=== PATIENT | male | born 1940 | race Caucasian/White ===

== ENCOUNTER 2017-09-18 12:00 | Emergency (ER) | payer BC, MEDICARE ==
--- NOTE | 2017-09-18 13:02 | EDM.PDOC ---
ED HPI GENERAL MEDICAL PROBLEM - General Chief Complaint: Chest Pain Stated Complaint: chest pain Time Seen by Provider: 09/18/17 12:15 Source of Information: Reports: Patient History Limitations: Reports: No Limitations - History of Present Illness INITIAL COMMENTS - FREE TEXT/NARRATIVE: Awoke with chest pressure this morning. While on the treadmill at cardiac rehab the patient became short of breath and developed left arm pain, the chest pressure did not worsen. The arm pain and dyspnea resolved with rest. Chest pressure persists, he did not take his NTG. He did however take his Plavix this morning. The patient underwent PCI of the left circumflex artery with placement of bare metal stent on 07/16/[address] [facility]. He's had 6 coronary stents in total placed. Onset: Today, Sudden Onset Date: 09/18/17 Onset Time: 06:00 Location: Reports: Chest Quality: Reports: Pressure Severity: Moderate (4) Improves with: Reports: None Worsens with: Reports: None Associated Symptoms: Reports: Cough, Shortness of Breath - Related Data Allergies Allergy/AdvReac Type Severity Reaction Status Date / Time prednisone Allergy Respiratory Verified 09/18/17 12:55 Distress Home Meds: Home Meds Levothyroxine [Synthroid] 100 mcg PO DAILY 10/21/13 [History] Metoprolol Succinate [Toprol Xl] 50 mg PO BID 10/21/13 [History] Albuterol [Ventolin HFA] 2 puff INH Q6HR PRN 07/21/15 [History] Cholecalciferol (Vitamin D3) [Vitamin D3] 2,000 units PO BID 07/21/15 [History] Clopidogrel Bisulfate [Plavix] 75 mg PO DAILY 07/21/15 [History] Insulin Aspart [NovoLOG] 5 units SUBCUT TIDMEALS 07/21/15 [History] Insulin Glarg,Human.Rec.Analog [Lantus Solostar] 34 units SUBCUT BEDTIME [History] Warfarin [Coumadin] 5 mg PO TUTHSA 07/21/15 [History] Warfarin [Coumadin] 7.5 mg PO SUMOWEFR 07/21/15 [History] Midodrine 10 mg PO BIDPC #14 tablet 08/10/15 [Rx] Albuterol/Ipratropium [DuoNeb 3.0-0.5 MG/3 ML] 3 ml NEB Q4H PRN 09/18/17 [ History] Colchicine 0.6 mg PO ASDIRECTED PRN 09/18/17 [History] Fluticasone/Salmeterol [Advair 250-50] 1 puff INH BID 09/18/17 [History] Isosorbide Mononitrate [Imdur] 60 mg PO DAILY 09/18/17 [History] Magnesium Oxide 250 mg PO 09/18/17 [History] Nitroglycerin 0.4 mg SL ASDIRECTED PRN 09/18/17 [History] Torsemide 20 mg PO BID 09/18/17 [History] atorvaSTATin Calcium [Lipitor] 40 mg PO BEDTIME 09/18/17 [History] Past Medical History HEENT History: Reports: Cataract, Hard of Hearing, Other (See Below) Other HEENT History: 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 Cardiovascular History: Reports: Afib, Heart Failure, High Cholesterol, Hypertension, Stents Respiratory History: Reports: Asthma, COPD, Pneumonia, Recurrent, SOB Gastrointestinal History: Reports: Other (See Below) Other Gastrointestinal History: Constipation and diarrhea issues. Genitourinary History: Reports: Renal Disease, Retention, Urinary Musculoskeletal History: Reports: Other (See Below) Other Musculoskeletal History: Mild arthritis, especially to fingers. Neurological History: Reports: Other (See Below) Other Neuro History: Episode of major headache last Spring, involved medications and a biopsy. Psychiatric History: Reports: Anxiety Endocrine/Metabolic History: Reports: Diabetes, Type I, Hypothyroidism, Obesity/ BMI 30+ Hematologic History: Reports: Anticoagulation Therapy Oncologic (Cancer) History: Reports: Lung Dermatologic History: Reports: Other (See Below) Other Dermatologic History: Dry skin, easily bruised. - Infectious Disease History Infectious Disease History: Reports: None Other Infectious Disease History: MRSA at one time, ears ?? Uncertain of childhood illnesses. - Past Surgical History HEENT Surgical History: Reports: Cataract Surgery Cardiovascular Surgical History: Reports: Coronary Artery Stent Respiratory Surgical History: Reports: Other (See Below) Social & Family History - Family History HEENT: Reports: Hearing Impairment, Macular Degeneration : Reports: None Musculoskeletal: Reports: Arthritis, Back pain, Chronic Neurological: Reports: CVA Endocrine/Metabolic: Reports: Diabetes, Type I Dermatologic: Reports: None - Tobacco Use Smoking Status *Q: Former Smoker - Living Situation & Occupation Living situation: Reports: Occupation: Retired ED ROS GENERAL - Review of Systems Review Of Systems: See Below Constitutional: Reports: No Symptoms HEENT: Reports: No Symptoms Respiratory: Reports: Shortness of Breath (exertional), Cough (x2-3 days) Cardiovascular: Reports: Chest Pain (4/10 pressure) Endocrine: Reports: No Symptoms GI/Abdominal: Reports: No Symptoms : Reports: No Symptoms Musculoskeletal: Reports: Arm Pain (left, on treadmill at cardiac rehab) Skin: Reports: No Symptoms Neurological: Reports: No Symptoms Psychiatric: Reports: No Symptoms Hematologic/Lymphatic: Reports: No Symptoms Immunologic: Reports: No Symptoms ED EXAM, GENERAL - Physical Exam Exam: See Below Exam Limited By: No Limitations General Appearance: Alert, WD/WN, No Apparent Distress Ears: Normal External Exam Nose: Normal Inspection Throat/Mouth: No Airway Compromise Head: Atraumatic, Normocephalic Neck: Supple Respiratory/Chest: No Respiratory Distress, No Accessory Muscle Use, Rhonchi, Wheezing Cardiovascular: Regular Rate, Rhythm, No Murmur GI/Abdominal: No Distention Extremities: Normal Inspection, Normal Range of Motion, Other (1+ pitting pedal edema bilaterally) Neurological: Alert, Oriented, No Motor/Sensory Deficits Psychiatric: Normal Affect Skin Exam: Warm, Dry, Intact, Normal Color, No Rash EKG INTERPRETATION EKG Date: 09/18/17 Time: 13:48 Rhythm: A-Fib Rate (Beats/Min): 60 Comparison: No Change (from 07/17/17) EKG Interpretation Comments: RBBB and LAFB, no acute ischemic abnormalities Course - Vital Signs Last Recorded V/S: Last Vital Signs Temp 37.3 C 09/18/17 12:00 Pulse Resp 17 09/18/17 12:30 BP 120/59 L 09/18/17 13:22 Pulse Ox 98 09/18/17 12:30 - Orders/Labs/Meds Orders: Active Orders 24 hr Category Date Time Status Chest 1V Frontal [CR] Stat Exams 09/18/17 12:37 Taken CULTURE BLOOD [BC] Stat Lab 09/18/17 13:33 Ordered CULTURE BLOOD [BC] Stat Lab 09/18/17 13:33 Ordered Nitroglycerin [Nitrostat] Med 09/18/17 13:00 Active 0.4 mg SL Q5M PRN Sodium Chloride 0.9% [Saline Flush] Med 09/18/17 12:37 Active 10 ml FLUSH ASDIRECTED PRN Blood Culture x2 Reflex Set [OM.PC] Urgent Oth 09/18/17 13:33 Ordered Saline Lock Insert [OM.PC] Routine Oth 09/18/17 12:37 Ordered EKG 12 Lead [EK] Stat Ther 09/18/17 12:37 Ordered Medication Orders Nitroglycerin (Nitrostat) 0.4 mg SL Q5M PRN PRN Reason: Chest Pain Last Admin: 09/18/17 13:22 Dose: 0.4 mg Admin: 09/18/17 13:14 Dose: 0.4 mg Sodium Chloride (Saline Flush) 10 ml FLUSH ASDIRECTED PRN PRN Reason: Keep Vein Open Last Admin: 09/18/17 13:20 Dose: 10 ml Labs: Laboratory Tests 09/18/17 09/18/17 09/18/17 Range/Units 12:40 12:40 12:40 WBC 7.3 (4.5-12.0) X10-3/uL RBC 4.01 L (4.30-5.75) x10(6)uL Hgb 12.5 (11.5-15.5) g/dL Hct 37.9 (30.0-51.3) % MCV 94.5 (80-96) fL MCH 31.3 (27.7-33.6) pg MCHC 33.1 (32.2-35.4) g/dL RDW 14.5 (11.5-15.5) % Plt Count 186 (125-369) X10(3)uL MPV 7.7 (7.4-10.4) fL Neut % (Auto) 70.2 (46-82) % Lymph % (Auto) 18.5 (13-37) % [place] % (Auto) 8.8 (4-12) % Eos % (Auto) 2 (1.0-5.0) % Baso % (Auto) 0 (0-2) % Neut # (Auto) 5.2 (1.6-8.3) # Lymph # (Auto) 1.3 (0.6-5.0) # [place] # (Auto) 0.6 (0.0-1.3) # Eos # (Auto) 0.2 (0.0-0.8) # Baso # (Auto) 0.0 (0.0-0.2) # PT 24.2 H (8.7-11.1) INR 2.51 H (0.89-1.13) APTT 32.8 (24.4-33.2) SECONDS Sodium 139 (135-145) mmol/L Potassium 3.8 (3.5-5.3) mmol/L Chloride 101 (100-110) mmol/L Carbon Dioxide 31 (21-32) mmol/L BUN 44 H (7-18) mg/dL Creatinine 2.2 H* (0.70-1.30) mg/dL Est Cr Clr Drug Dosing TNP Estimated GFR (MDRD) 29 L (>60) BUN/Creatinine Ratio 20.0 (9-20) Glucose 109 (80-116) mg/dL Calcium 9.1 (8.6-10.2) mg/dL Total Bilirubin 1.2 (0.1-1.3) mg/dL AST 25 (5-25) IU/L ALT 21 (12-36) U/L Alkaline Phosphatase 144 H (56-112) IU/L Troponin I (<0.017-0.056) ng/mL NT-Pro-B Natriuret Pep (<=450) pg/mL Total Protein 7.5 (6.0-8.0) g/dL Albumin 3.0 L (3.2-4.6) g/dL Globulin 4.5 g/dL Albumin/Globulin Ratio 0.7 09/18/17 09/18/17 Range/Units 12:40 12:40 WBC (4.5-12.0) X10-3/uL RBC (4.30-5.75) x10(6)uL Hgb (11.5-15.5) g/dL Hct (30.0-51.3) % MCV (80-96) fL MCH (27.7-33.6) pg MCHC (32.2-35.4) g/dL RDW (11.5-15.5) % Plt Count (125-369) X10(3)uL MPV (7.4-10.4) fL Neut % (Auto) (46-82) % Lymph % (Auto) (13-37) % [place] % (Auto) (4-12) % Eos % (Auto) (1.0-5.0) % Baso % (Auto) (0-2) % Neut # (Auto) (1.6-8.3) # Lymph # (Auto) (0.6-5.0) # [place] # (Auto) (0.0-1.3) # Eos # (Auto) (0.0-0.8) # Baso # (Auto) (0.0-0.2) # PT (8.7-11.1) INR (0.89-1.13) APTT (24.4-33.2) SECONDS Sodium (135-145) mmol/L Potassium (3.5-5.3) mmol/L Chloride (100-110) mmol/L Carbon Dioxide (21-32) mmol/L BUN (7-18) mg/dL Creatinine (0.70-1.30) mg/dL Est Cr Clr Drug Dosing Estimated GFR (MDRD) (>60) BUN/Creatinine Ratio (9-20) Glucose (80-116) mg/dL Calcium (8.6-10.2) mg/dL Total Bilirubin (0.1-1.3) mg/dL AST (5-25) IU/L ALT (12-36) U/L Alkaline Phosphatase (56-112) IU/L Troponin I 0.046 (<0.017-0.056) ng/mL NT-Pro-B Natriuret Pep 2538 H* (<=450) pg/mL Total Protein (6.0-8.0) g/dL Albumin (3.2-4.6) g/dL Globulin g/dL Albumin/Globulin Ratio Meds: Medications Generic Name Dose Route Start Last Admin Trade Name Freq PRN Reason Stop Dose Admin Nitroglycerin 0.4 mg 09/18/17 13:00 09/18/17 13:22 Nitrostat SL 0.4 mg Q5M PRN Administration Chest Pain Sodium Chloride 10 ml 09/18/17 12:37 09/18/17 13:20 Saline Flush FLUSH 10 ml ASDIRECTED PRN Administration Keep Vein Open Discontinued Medications Generic Name Dose Route Start Last Admin Trade Name Freq PRN Reason Stop Dose Admin Ceftriaxone Sodium 1,000 mg 09/18/17 13:44 Rocephin IVPUSH 09/18/17 13:45 ONETIME ONE Furosemide 40 mg 09/18/17 13:06 09/18/17 13:17 Lasix IVPUSH 09/18/17 13:07 40 mg NOW ONE Administration Morphine Sulfate 2 mg 09/18/17 13:43 Morphine IVPUSH 09/18/17 13:44 ONETIME ONE - Radiology Interpretation Free Text/Narrative:: CXR: Cardiomegaly. Increased pumonary vasculature. DANIEL opacity, etiologies include Atelectasis, focal edema and infiltrate. - Re-Assessments/Exams Free Text/Narrative Re-Assessment/Exam: 09/18/17 13:51 Symptoms unchanged after NTG SL x 2 09/18/17 13:53 Dr. Gramajo accepts transfer to [facility] Departure - Departure Time of Disposition: 13:52 Disposition: DC/Tfer to [facility] 02 Reason for Transfer *Q: Other (Cardiology consult) Condition: Fair Clinical Impression: Unstable angina CHF exacerbation Qualifiers: Heart failure type: unspecified Qualified Code(s): I50.9 - Heart failure, unspecified Referrals: Ranjith Llanes MD [Primary Care Provider] - Forms: ED Department Discharge Additional Instructions: Transferred to [facility], Dr. Gramajo accepting. - My Orders Last 24 Hours: My Active Orders 09/18/17 12:37 Chest 1V Frontal [CR] Stat Sodium Chloride 0.9% [Saline Flush] 10 ml FLUSH ASDIRECTED PRN Saline Lock Insert [OM.PC] Routine EKG 12 Lead [EK] Stat 09/18/17 13:00 Nitroglycerin [Nitrostat] 0.4 mg SL Q5M PRN 09/18/17 13:33 CULTURE BLOOD [BC] Stat CULTURE BLOOD [BC] Stat Blood Culture x2 Reflex Set [OM.PC] Urgent - Assessment/Plan Last 24 Hours: My Active Orders 09/18/17 12:37 Chest 1V Frontal [CR] Stat Sodium Chloride 0.9% [Saline Flush] 10 ml FLUSH ASDIRECTED PRN Saline Lock Insert [OM.PC] Routine EKG 12 Lead [EK] Stat 09/18/17 13:00 Nitroglycerin [Nitrostat] 0.4 mg SL Q5M PRN 09/18/17 13:33 CULTURE BLOOD [BC] Stat CULTURE BLOOD [BC] Stat Blood Culture x2 Reflex Set [OM.PC] Urgent
[2017-09-18] MEDS ORDERED: Furosemide 40 MG/4 ML VIAL IVPUSH ONE (13:06)
[2017-09-18] MEDS: Nitroglycerin 0.4 MG Tab.SL SL PRN ×2 (13:14→13:22)
[2017-09-18] MEDS: Sodium Chloride 0.9% 10 ML Syringe FLUSH PRN ×2 (13:20→14:04)
[2017-09-18] MEDS ORDERED: Morphine 2 MG/ML Syringe IVPUSH ONE (13:43)
[2017-09-18] MEDS ORDERED: cefTRIAXone 1,000 MG VIAL IVPUSH ONE (13:44)
[2017-09-18 21:40] VITALS: BP 132/62
--- NOTE | 2017-09-19 08:43 | CR ---
INDICATION: Chest pain. CHEST: Portable AP upright view of the chest 09/18/2017 was compared with 07/28 and 10/21/2013. Two images were obtained. There is increased density in the suprahilar area on the left. Upper lung field pulmonary vasculature appears slightly prominent and indistinct, suggesting CHF. The heart appears prominent but not grossly enlarged. Other than CHF, there could be fluid overload to produce pulmonary vascular congestion - correlate clinically. Cannot exclude a pleural effusion at the left lung base - costophrenic angle appears to be blunted. Overlying EKG leads are noted. IMPRESSION: 1. Atelectasis versus fibrosis versus pneumonia left suprahilar area and possibly extending into the lung base, possibly with pleuritis. 2. Possible CHF or other cause of pulmonary vascular congestion. MTDD
== END 2017-09-18 14:43 ==
LOC: FB.ED 12:00
DX: I20.0 Unstable angina (principal); I11.0 Hypertensive heart disease with heart failure; I50.9 Heart failure, unspecified; E10.9 Type 1 diabetes mellitus without complications; Z88.8 Allergy status to other drugs, medicaments and biological substances; Z79.899 Other long term (current) drug therapy; Z87.891 Personal history of nicotine dependence
CPT/HCPCS: 36415; 71045; 80053; 83880; 84484; 85025; 85610; 85730; 87040; 93005; 96374; 96375; 99284; 99285; A9270-GY; J0696; J1940; J2270; J7050

== ENCOUNTER 2018-08-28 11:52 | Inpatient (IN) | payer BC, MEDICARE ==
[2018-08-28] MEDS ORDERED: Albuterol 8 GM Inhaler INH PRN (15:46)
[2018-08-28] MEDS ORDERED: Colchicine 0.6 MG Tab PO PRN (15:46)
[2018-08-28] MEDS ORDERED: oxyCODONE 5 MG Tab PO PRN (15:46)
[2018-08-28] MEDS: Levofloxacin 250 MG Tab PO SCH (17:38)
[2018-08-28] MEDS: Warfarin 5 MG Tab PO SCH (17:38)
--- NOTE | 2018-08-28 18:01 | PCM.HP ---
H&P History of Present Illness - General Date of Service: 08/28/18 Admit Problem/Dx: Admission Diagnosis/Problem Admission Diagnosis/Problem Rehabilitation therapy Source of Information: Patient, Old Records History Limitations: Reports: No Limitations - History of Present Illness Initial Comments - Free Text/Narative: This is an 78-year-old male patient with history of lung CA and chronic pleural effusions was discharged from [facility] for rehabilitation. He was in the hospital for shortness of breath and had a thoracentesis and removed 1200 mils of fluid on 08/20/18. He was anemic and was given units of RBCs. Patient was transferred here for PT/OT and strengthening. Patient states he has some burning in his feet and is now on gabapentin and increase the dose and is feeling better. He denies shortness of breath, chest pain, weakness, fevers, chills. He wears oxygen chronically. - Related Data Allergies/Adverse Reactions: Allergies Allergy/AdvReac Type Severity Reaction Status Date / Time prednisone Allergy Respiratory Verified 09/18/17 12:55 Distress Home Medications: Home Meds Levothyroxine [Synthroid] 100 mcg PO DAILY 10/21/13 [History] Albuterol [Ventolin HFA] 2 puff INH Q6H PRN 07/21/15 [History] Insulin Aspart [NovoLOG] 5 units SUBCUT TIDMEALS 07/21/15 [History] Warfarin [Coumadin] 5 mg PO SUTUTHSA 07/21/15 [History] Warfarin [Coumadin] 7.5 mg PO MOWEFR 07/21/15 [History] Albuterol/Ipratropium [DuoNeb 3.0-0.5 MG/3 ML] 3 ml NEB Q4H PRN 09/18/17 [ History] Colchicine 0.6 mg PO ASDIRECTED PRN 09/18/17 [History] Fluticasone/Salmeterol [Advair 250-50] 1 puff INH BID 09/18/17 [History] Isosorbide Mononitrate [Imdur] 60 mg PO DAILY 09/18/17 [History] Torsemide 60 mg PO BID 09/18/17 [History] atorvaSTATin Calcium [Lipitor] 40 mg PO DAILY 09/18/17 [History] Aspirin [Ecotrin EC] 81 mg PO DAILY 08/28/18 [History] Cyanocobalamin (Vitamin B-12) [B-12] 1,000 mcg PO DAILY 08/28/18 [History] Folic Acid 1 mg PO DAILY 08/28/18 [History] Gabapentin [Neurontin] 300 mg PO BID 08/28/18 [History] Insulin Detemir [Levemir] 34 unit SUBCUT DAILY 08/28/18 [History] Mirtazapine 7.5 mg PO BEDTIME 08/28/18 [History] Polyethylene Glycol 3350 [MiraLAX] 17 gm PO DAILY 08/28/18 [History] levoFLOXacin [Levaquin] 250 mg PO DAILY 08/28/18 [History] oxyCODONE 5 mg PO Q4H PRN 08/28/18 [History] Past Medical History HEENT History: Reports: Cataract, Hard of Hearing, Other (See Below) Other HEENT History: 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 Cardiovascular History: Reports: Afib, Heart Failure, High Cholesterol, Hypertension, Stents Respiratory History: Reports: Asthma, COPD, Pneumonia, Recurrent, SOB Other Respiratory History: pleural effusion, hx of lung CA 2003 Gastrointestinal History: Reports: Other (See Below) Other Gastrointestinal History: Constipation and diarrhea issues. Genitourinary History: Reports: Renal Disease, Retention, Urinary Other Genitourinary History: hematuria, hyperuricemia, CKD Musculoskeletal History: Reports: Other (See Below) Other Musculoskeletal History: Mild arthritis, especially to fingers. Neurological History: Reports: Other (See Below) Other Neuro History: Episode of major headache last Spring, involved medications and a biopsy. Psychiatric History: Reports: Anxiety Endocrine/Metabolic History: Reports: Diabetes, Type I, Hypothyroidism, Obesity/ BMI 30+ Hematologic History: Reports: Anticoagulation Therapy Other Hematologic History: coagulopathy Oncologic (Cancer) History: Reports: Lung Dermatologic History: Reports: Other (See Below) Other Dermatologic History: Dry skin, easily bruised. - Infectious Disease History Infectious Disease History: Reports: None Other Infectious Disease History: MRSA at one time, ears ?? Uncertain of childhood illnesses. - Past Surgical History HEENT Surgical History: Reports: Cataract Surgery Cardiovascular Surgical History: Reports: Coronary Artery Stent Respiratory Surgical History: Reports: Other (See Below) Social & Family History - Family History HEENT: Reports: Hearing Impairment, Macular Degeneration : Reports: None Musculoskeletal: Reports: Arthritis, Back pain, Chronic Neurological: Reports: CVA Endocrine/Metabolic: Reports: Diabetes, Type I Dermatologic: Reports: None - Tobacco Use Smoking Status *Q: Former Smoker Used Tobacco, but Quit: No - Caffeine Use Caffeine Use: Reports: Soda - Recreational Drug Use Recreational Drug Use: No - Living Situation & Occupation Living situation: Reports: Occupation: Retired H&P Review of Systems - Review of Systems: Review Of Systems: See Below General: Reports: No Symptoms HEENT: Reports: No Symptoms Pulmonary: Reports: No Symptoms Cardiovascular: Reports: No Symptoms Gastrointestinal: Reports: No Symptoms Genitourinary: Reports: No Symptoms Musculoskeletal: Reports: No Symptoms Skin: Reports: No Symptoms Psychiatric: Reports: No Symptoms Neurological: Reports: Paresthesia, Change in Speech Immunologic: Reports: No Symptoms Exam - Exam Exam: See Below - Vital Signs Vital Signs: Last Vital Signs Temp 98.4 F 08/28/18 15:25 Pulse 78 08/28/18 15:25 Resp 18 08/28/18 15:25 BP 108/56 L 08/28/18 15:25 Pulse Ox 99 08/28/18 15:25 - Exam Quality Assessment: Supplemental Oxygen General: Alert, Oriented, Cooperative HEENT: Hearing Intact, Posterior Pharynx Clear, TMs Clear Neck: Supple, Trachea Midline Lungs: Crackles (Bilateral basilar) Cardiovascular: Regular Rate, Regular Rhythm. No: Systolic Murmur GI/Abdominal Exam: Normal Bowel Sounds, Soft, Non-Tender, No Distention Back Exam: Normal Inspection Extremities: Pedal Edema (1+ bilateral ankles) Skin: Warm, Dry, Intact Neurological: Normal Speech, Normal Tone Neuro Extensive - Mental Status: Alert, Oriented x3, Normal Mood/Affect, Normal Cognition, Memory Intact Psychiatric: Alert, Normal Affect, Normal Mood - Patient Data Lab Results Last 24 hrs: Laboratory Results - last 24 hr 08/28/18 08/28/18 Range/Units 16:25 17:35 PT 19.3 H (8.7-11.1) INR 2.00 H (0.89-1.13) POC Glucose 149 H (80-116) mg/dL - Problem List (1) Lung calculus SNOMED Code(s): 14248898 ICD Code: J98.4 - OTHER DISORDERS OF LUNG Status: Acute Current Visit: Yes (2) Pleural effusion SNOMED Code(s): 30656775 ICD Code: J90 - PLEURAL EFFUSION, NOT ELSEWHERE CLASSIFIED Status: Acute Current Visit: Yes (3) Anemia SNOMED Code(s): 150312594 ICD Code: D64.9 - ANEMIA, UNSPECIFIED Status: Acute Current Visit: Yes (4) Diabetes mellitus SNOMED Code(s): 11080620 ICD Code: E11.9 - TYPE 2 DIABETES MELLITUS WITHOUT COMPLICATIONS Status: Acute Current Visit: No Problem List Initiated/Reviewed/Updated: Yes Orders Last 24hrs: Active Orders 24 hr Category Date Time Status Admission Status [Patient Status] [ADT] Routine ADT 08/28/18 13:40 Active Patient Status [ADT] Routine ADT 08/28/18 15:43 Active Accu Check [Blood Glucose Check, Bedside] [RC] BIDAC Care 08/28/18 15:48 Active Oxygen Therapy [RC] PRN Care 08/28/18 15:43 Active Up With Assistance [RC] ASDIRECTED Care 08/28/18 15:43 Active VTE/DVT Education [RC] Per Unit Routine Care 08/28/18 15:43 Active Vital Signs [RC] 00,04,08,12,16,20 Care 08/28/18 15:43 Active Consult to Program Project Analyst [CONS] Routine Cons 08/28/18 16:55 Active OT Evaluation and Treatment [CONS] Routine Cons 08/28/18 15:43 Active PT Evaluation and Treatment [CONS] Routine Cons 08/28/18 15:43 Active Cardiac Diet [Heart Healthy Diet] [DIET] Diet 08/28/18 Dinner Active Fluid Restriction [DIET] Diet 08/28/18 Dinner Active INR,PT,PROTHROMBIN TIME [COAG] DAILY Lab 08/29/18 16:00 Ordered INR,PT,PROTHROMBIN TIME [COAG] DAILY Lab 08/30/18 16:00 Ordered INR,PT,PROTHROMBIN TIME [COAG] DAILY Lab 08/31/18 16:00 Ordered INR,PT,PROTHROMBIN TIME [COAG] DAILY Lab 09/01/18 16:00 Ordered INR,PT,PROTHROMBIN TIME [COAG] DAILY Lab 09/02/18 16:00 Ordered Albuterol [Ventolin HFA] Med 08/28/18 15:46 Active 0 gm INH Q6H PRN Albuterol/Ipratropium [DuoNeb 3.0-0.5 MG/3 ML] Med 08/28/18 15:46 Active 3 ml NEB Q4H PRN Aspirin [Halfprin] Med 08/29/18 09:00 Active 81 mg PO DAILY Colchicine [Colcrys] Med 08/28/18 15:46 Active 0.6 mg PO ASDIRECTED PRN Cyanocobalamin (Vitamin B12) [Vitamin B12] Med 08/29/18 09:00 Active 1,000 mcg PO DAILY Folic Acid Med 08/29/18 09:00 Active 1 mg PO DAILY Gabapentin [Neurontin] Med 08/28/18 21:00 Active 300 mg PO BID Insulin Glarg,Human.Rec.Analog [LantUS Solostar] Med 08/29/18 09:00 Active 34 units SUBCUT DAILY Insulin Lispro [HumaLOG] Med 08/28/18 18:00 Active 5 unit SUBCUT TIDMEALS Isosorbide Mononitrate [Imdur] Med 08/29/18 09:00 Active 60 mg PO DAILY Levothyroxine [Synthroid] Med 08/29/18 06:00 Active 100 mcg PO 0600 Mirtazapine [Remeron] Med 08/28/18 21:00 Active 7.5 mg PO BEDTIME Mometasone/Formoterol [Dulera 200-5 MCG] Med 08/28/18 21:00 Active 0 puff IH BID Polyethylene Glycol 3350 [MiraLAX] Med 08/29/18 09:00 Active 17 gm PO DAILY Torsemide [Demadex] Med 08/28/18 21:00 Active 60 mg PO BID Warfarin [Coumadin] Med 08/28/18 16:00 Active 5 mg PO SUTUTHSA Warfarin [Coumadin] Med 08/29/18 16:00 Active 7.5 mg PO MOWEFR atorvaSTATin [Lipitor] Med 08/29/18 09:00 Active 40 mg PO DAILY levoFLOXacin [Levaquin] Med 08/28/18 16:00 Active 250 mg PO Q24H oxyCODONE Med 08/28/18 15:46 Active 5 mg PO Q4H PRN Resuscitation Status Routine Resus Stat 08/28/18 15:43 Ordered Medication Orders Albuterol (Ventolin Hfa) 0 gm INH Q6H PRN PRN Reason: Dyspnea Albuterol/Ipratropium (Duoneb 3.0-0.5 Mg/3 Ml) 3 ml NEB Q4H PRN PRN Reason: Dyspnea Aspirin (Halfprin) 81 mg PO DAILY [facility] Atorvastatin Calcium (Lipitor) 40 mg PO DAILY [facility] Colchicine (Colcrys) 0.6 mg PO ASDIRECTED PRN PRN Reason: ACUTE GOUT Cyanocobalamin (Vitamin B12) 1,000 mcg PO DAILY [facility] Folic Acid (Folic Acid) 1 mg PO DAILY [facility] Gabapentin (Neurontin) 300 mg PO BID [facility] Insulin Glargine (Lantus Solostar) 34 units SUBCUT DAILY [facility] Insulin Human Lispro (Humalog) 5 unit SUBCUT TIDMEALS [facility] Isosorbide Mononitrate (Imdur) 60 mg PO DAILY [facility] Levofloxacin (Levaquin) 250 mg PO Q24H [facility] Last Admin: 08/28/18 17:38 Dose: 250 mg Levothyroxine Sodium (Synthroid) 100 mcg PO 0600 [facility] Mirtazapine (Remeron) 7.5 mg PO BEDTIME [facility] Mometasone Furoate/Formoterol Fumar (Dulera 200-5 Mcg) 0 puff IH BID [facility] Oxycodone HCl (Oxycodone) 5 mg PO Q4H PRN PRN Reason: ACUTE PAIN Polyethylene Glycol (Miralax) 17 gm PO DAILY [facility] Torsemide (Demadex) 60 mg PO BID [facility] Warfarin Sodium (Coumadin) 5 mg PO SUTUTHSA [facility] Last Admin: 08/28/18 17:38 Dose: 5 mg Warfarin Sodium (Coumadin) 7.5 mg PO MOWEFR [facility] Assessment/Plan Comment:: 1. Admit to swing bed 2. Diet per [facility] is 1500 mL fluid restriction and a cardiac diet. 3. PT/OT 4. Up with assist 5. Continue the same medications he was on in [place]. 6. DNR/DNI 7. The plan at this time is to go home after swing bed
[2018-08-28] MEDS: Insulin Lispro 100 Unit/ML 3 ML KwikPen SUBCUT SCH (18:40)
[2018-08-28] MEDS: Formoterol/Mometasone 200-5 MCG 8.8 GM Inhaler IH SCH (20:48)
[2018-08-28] MEDS: Torsemide 20 MG Tab PO SCH (20:49)
[2018-08-28] MEDS: Mirtazapine 15 MG Tab PO SCH (20:49)
[2018-08-28] MEDS: Gabapentin 300 MG Cap PO SCH (20:55)
[2018-08-29] MEDS: Levothyroxine 100 MCG Tab PO SCH (05:19)
[2018-08-29] MEDS: atorvaSTATin 40 MG Tab PO SCH (08:17)
[2018-08-29] MEDS: Aspirin 81 MG Tab.EC PO SCH (08:17)
[2018-08-29] MEDS: Cyanocobalamin (Vitamin B12) 1,000 MCG Tab PO SCH (08:17)
[2018-08-29] MEDS: Torsemide 20 MG Tab PO SCH ×2 (08:17→21:29)
[2018-08-29] MEDS: Folic Acid 1 MG Tab PO SCH (08:17)
[2018-08-29] MEDS: Polyethylene Glycol 3350 Powder 17 GM Packet PO SCH (08:17)
[2018-08-29] MEDS: Isosorbide Mononitrate 60 MG Tab.ER PO SCH (08:17)
[2018-08-29] MEDS: Insulin Glargine,Human Rec. Analog 100 Units/ML 3 ML Pen SUBCUT SCH (08:18)
[2018-08-29] MEDS: Formoterol/Mometasone 200-5 MCG 8.8 GM Inhaler IH SCH ×2 (08:18→21:29)
[2018-08-29] MEDS: Insulin Lispro 100 Unit/ML 3 ML KwikPen SUBCUT SCH ×3 (08:18→17:15)
[2018-08-29] MEDS: Gabapentin 300 MG Cap PO SCH ×2 (08:24→21:28)
[2018-08-29] MEDS ORDERED: Warfarin Sliding Scale PO SCH (10:15)
--- NOTE | 2018-08-29 13:00 | PN ---
DATE SEEN: 08/29/2018 SUBJECTIVE: Ethan Bright is an 78-year-old male, seen today for review. History of lung cancer. He has had recurrent left pleural effusions. Most recent thoracentesis on 08/20/2018 of 1200 mL. Also has a history of anemia, recent blood provided. INR 2.18, Coumadin proceeded. The pain in his feet is better, moderate increase in dose of gabapentin. PHYSICAL EXAMINATION: VITAL SIGNS: 36.7, 74, 122/70, 18 is the respiration, and 95% on 2 L. GENERAL: In good spirits. Cooperative, gives a good history. HEENT: Mouth and oropharynx are clear. NECK: Benign. Thyroid small. CHEST: Clear in all lung whitting[place]. No adventitious sounds. HEART: Occasional ectopy. Soft murmur. ASSESSMENT: 1. Lung cancer. 2. History of recurrent pleural effusions. PLAN: We will obtain a chest x-ray, hemoglobin, and appropriate diagnostic studies. Short-term stay expected. /[id number] VISHAL/CHRISTOPHER
--- NOTE | 2018-08-29 14:30 | CR ---
INDICATION: Followup lung effusion and previous thoracentesis. CHEST TWO VIEWS: PA and lateral views of the chest 08/29/18 were compared with 08/26/18 and 08/22/18 as well as 09/18/17. The most recent study is apparently post-thoracentesis on the left. There has been re-accumulation of fluid at the left lower lung field with a small to moderate sized pleural effusion now suggested- re-accumulating compared with the previous study. There also is nodular and linear density in the left upper lobe posterior basilar segment in the mid lung, which has been present previously and may be due to neoplastic process and possibly fibrosis. The heart did not appear grossly enlarged. However, pulmonary vasculature appears somewhat prominent and indistinct raising question of a mild or early CHF. This should be correlated clinically. The possibility of pneumonia and pleuritis at the left lung base cannot be excluded with heavy markings in that area and pleural effusion. Atelectasis could also be present with these findings. The right lung and pleural space appeared relatively normal. The aorta is tortuous and calcified in the arch and descending portion. Bony structures appear to be grossly intact. IMPRESSION: 1. Re-accumulation of fluid on the left with possibility of pneumonia and pleuritis unable to be excluded. 2. Mid-lung field density posteriorly, which may be on the basis of neoplasia, fibrosis and/or atelectasis. Loculated pleural fluid could also be present as well as abscess formation. 3. Cannot exclude pulmonary vascular congestion although the heart is not enlarged to strongly suggest CHF. MTDD
[2018-08-29] MEDS: Warfarin 2.5 MG Tab PO SCH (16:23)
[2018-08-29] MEDS: Levofloxacin 250 MG Tab PO SCH (16:23)
[2018-08-29] MEDS: Mirtazapine 15 MG Tab PO SCH (21:29)
[2018-08-30] MEDS: Levothyroxine 100 MCG Tab PO SCH (06:21)
[2018-08-30] MEDS: Insulin Lispro 100 Unit/ML 3 ML KwikPen SUBCUT SCH ×3 (08:42→17:51)
[2018-08-30] MEDS: Torsemide 20 MG Tab PO SCH ×2 (08:44→21:44)
[2018-08-30] MEDS: Isosorbide Mononitrate 60 MG Tab.ER PO SCH (08:45)
[2018-08-30] MEDS: Aspirin 81 MG Tab.EC PO SCH (08:45)
[2018-08-30] MEDS: Formoterol/Mometasone 200-5 MCG 8.8 GM Inhaler IH SCH ×2 (08:45→21:42)
[2018-08-30] MEDS: Folic Acid 1 MG Tab PO SCH (08:45)
[2018-08-30] MEDS: Insulin Glargine,Human Rec. Analog 100 Units/ML 3 ML Pen SUBCUT SCH (08:46)
[2018-08-30] MEDS: Cyanocobalamin (Vitamin B12) 1,000 MCG Tab PO SCH (08:47)
[2018-08-30] MEDS: Polyethylene Glycol 3350 Powder 17 GM Packet PO SCH (08:47)
[2018-08-30] MEDS: atorvaSTATin 40 MG Tab PO SCH (08:47)
[2018-08-30] MEDS: Gabapentin 300 MG Cap PO SCH ×2 (08:56→21:46)
--- NOTE | 2018-08-30 11:22 | PN ---
DATE SEEN: 08/30/2018 SUBJECTIVE: Mr. Bright is an 78-year-old male in for rehab purposes. Complicated lung cancer. Has been at [facility] since 08/28/2018. Pain medications have been adjusted. Gabapentin provided good benefit. He had his most recent thoracentesis earlier last week. X-ray from yesterday revealed some mild increase in fluid. PT/OT involved for strength and conditioning. Neuropathy in his feet is better with increasing doses of gabapentin. LABORATORY STUDIES: Hemoglobin 10.1, hematocrit 31.1. Glucose 132, 197, 185. INR 2.18. OBJECTIVE: VITAL SIGNS: 36.8, 103 kg, 106/58, 16, 98%. GENERAL: In good spirits. NECK: Benign. No JVD. CHEST: Decreased breath sounds, left lower lung whitting[place]. HEART: Occasional ectopy. Soft murmur. Decreasing needs for oxygen, now 1 L. ASSESSMENT: Lung cancer, intervention and care, rehab therapy. PLAN: Intervention and care. Close observation. We will Re x-ray his chest on Saturday, consult Dr. Jade or Dr. Thomas if thoracentesis indicated. /[id number] VISHAL/CHRISTOPHER
[2018-08-30] MEDS: Warfarin 5 MG Tab PO SCH (16:44)
[2018-08-30] MEDS: Levofloxacin 250 MG Tab PO SCH (16:45)
[2018-08-30] MEDS: Mirtazapine 15 MG Tab PO SCH (21:43)
[2018-08-31] MEDS: Levothyroxine 100 MCG Tab PO SCH (06:49)
[2018-08-31] MEDS: Insulin Lispro 100 Unit/ML 3 ML KwikPen SUBCUT SCH ×3 (08:16→20:30)
[2018-08-31] MEDS: Torsemide 20 MG Tab PO SCH ×2 (08:23→21:51)
[2018-08-31] MEDS: Cyanocobalamin (Vitamin B12) 1,000 MCG Tab PO SCH (08:24)
[2018-08-31] MEDS: Aspirin 81 MG Tab.EC PO SCH (08:24)
[2018-08-31] MEDS: Folic Acid 1 MG Tab PO SCH (08:24)
[2018-08-31] MEDS: Formoterol/Mometasone 200-5 MCG 8.8 GM Inhaler IH SCH ×2 (08:24→21:50)
[2018-08-31] MEDS: atorvaSTATin 40 MG Tab PO SCH (08:24)
[2018-08-31] MEDS: Polyethylene Glycol 3350 Powder 17 GM Packet PO SCH (08:24)
[2018-08-31] MEDS: Gabapentin 300 MG Cap PO SCH ×2 (09:36→21:50)
[2018-08-31] MEDS: Insulin Glargine,Human Rec. Analog 100 Units/ML 3 ML Pen SUBCUT SCH (09:36)
[2018-08-31] MEDS: Isosorbide Mononitrate 60 MG Tab.ER PO SCH (10:46)
[2018-08-31] MEDS: Warfarin 5 MG Tab PO SCH (16:27)
[2018-08-31] MEDS: Levofloxacin 250 MG Tab PO SCH (16:27)
[2018-08-31] MEDS: Mirtazapine 15 MG Tab PO SCH (21:51)
[2018-09-01] MEDS: Levothyroxine 100 MCG Tab PO SCH (06:13)
[2018-09-01] MEDS: Insulin Lispro 100 Unit/ML 3 ML KwikPen SUBCUT SCH ×3 (09:09→17:57)
[2018-09-01] MEDS: Torsemide 20 MG Tab PO SCH ×2 (09:11→21:22)
[2018-09-01] MEDS: Aspirin 81 MG Tab.EC PO SCH (09:12)
[2018-09-01] MEDS: Formoterol/Mometasone 200-5 MCG 8.8 GM Inhaler IH SCH ×2 (09:12→21:20)
[2018-09-01] MEDS: Folic Acid 1 MG Tab PO SCH (09:12)
[2018-09-01] MEDS: Insulin Glargine,Human Rec. Analog 100 Units/ML 3 ML Pen SUBCUT SCH (09:13)
[2018-09-01] MEDS: atorvaSTATin 40 MG Tab PO SCH (09:14)
[2018-09-01] MEDS: Polyethylene Glycol 3350 Powder 17 GM Packet PO SCH (09:14)
[2018-09-01] MEDS: Cyanocobalamin (Vitamin B12) 1,000 MCG Tab PO SCH (09:14)
[2018-09-01] MEDS: Gabapentin 300 MG Cap PO SCH ×2 (09:19→21:21)
[2018-09-01] MEDS: Isosorbide Mononitrate 60 MG Tab.ER PO SCH (09:28)
--- NOTE | 2018-09-01 09:42 | PN ---
DATE SEEN: 09/01/2018 SUBJECTIVE: Ethan Bright is an 78-year-old male, admitted for comfort measures. Has had a known lung carcinoma. He has had re-collections of fluid requiring thoracentesis. Most last done about a week ago. It has been about a weekly event. He has been transfused for 2 units. Consultation will be obtained with [facility], Dr. Thomas or Dr. Jade as appropriate. Voices no complaints or concerns. LABORATORY STUDIES: Blood sugars noted. OBJECTIVE: VITAL SIGNS: 103 kg, 36.8, 75 is the pulse, 93% on room air. GENERAL: Appears comfortable. NECK: Benign. Thyroid small. CHEST: Decreased breath sounds left lower lung field. HEART: Occasional ectopy. Soft murmur. ASSESSMENT: Lung carcinoma, recurrent left pleural effusions. PLAN: Consultation plan with [facility] upcoming and planned. /[id number] VISHAL/CHRISTOPHER
[2018-09-01] MEDS: Levofloxacin 250 MG Tab PO SCH (15:59)
[2018-09-01] MEDS: Warfarin 2.5 MG Tab PO SCH (15:59)
[2018-09-01] MEDS: Albuterol/Ipratropium 3.0-0.5 MG/3 ML Neb Soln NEB PRN ×2 (17:57→21:17)
--- NOTE | 2018-09-01 18:56 | OR ---
DATE OF OPERATION: 09/01/2018 SURGEON: Bill Jade MD INDICATION: This 78-year-old male has been developing recurrent left pleural effusions. He has had multiple thoracentesis for these. He does have a history of lung cancer and has had previous radiation therapy to the chest. With the recurrent thoracentesis, he will develop a pressure feeling in the chest and discomfort. His last thoracentesis was 6 days ago, but he is again developing symptoms from recurrence of the thoracentesis. Review of this most recent chest x-ray does show a pleural effusion on the left. Prior thoracentesis have been achieved through a localized area in the left posterior lung field. This area was again selected and after discussing the proposed operative procedure with the patient, obtaining his consent accepting risks, the left side of his back is sterilely prepped and draped and local infiltration of xylocaine was administered in the lower intercostal space. The Arrow thoracentesis kit was then used and the Arrow catheter advanced through a small incision into the left pleural space where a straw-colored fluid was able to be easily aspirated. Approximately 1 L of this fluid is aspirated from around the left lung and this was tolerated well by the patient. He did notice improvement in his breathing after this was performed. A postprocedure x-ray will be obtained. There was no indication of any complication during the surgical procedure. /[id number] TRAVIS/CHRISTOPHER
[2018-09-01] MEDS: Mirtazapine 15 MG Tab PO SCH (21:20)
[2018-09-02] MEDS: Levothyroxine 100 MCG Tab PO SCH (05:17)
[2018-09-02] MEDS: Insulin Lispro 100 Unit/ML 3 ML KwikPen SUBCUT SCH ×3 (07:49→17:55)
[2018-09-02] MEDS: Formoterol/Mometasone 200-5 MCG 8.8 GM Inhaler IH SCH ×2 (08:36→20:37)
[2018-09-02] MEDS: Torsemide 20 MG Tab PO SCH ×2 (08:36→20:36)
[2018-09-02] MEDS: Folic Acid 1 MG Tab PO SCH (08:37)
[2018-09-02] MEDS: atorvaSTATin 40 MG Tab PO SCH (08:37)
[2018-09-02] MEDS: Insulin Glargine,Human Rec. Analog 100 Units/ML 3 ML Pen SUBCUT SCH (08:37)
[2018-09-02] MEDS: Cyanocobalamin (Vitamin B12) 1,000 MCG Tab PO SCH (08:37)
[2018-09-02] MEDS: Isosorbide Mononitrate 60 MG Tab.ER PO SCH (08:38)
[2018-09-02] MEDS: Aspirin 81 MG Tab.EC PO SCH (08:38)
[2018-09-02] MEDS: Gabapentin 300 MG Cap PO SCH ×2 (08:40→20:37)
[2018-09-02] MEDS: Polyethylene Glycol 3350 Powder 17 GM Packet PO SCH (10:25)
[2018-09-02] MEDS: Albuterol/Ipratropium 3.0-0.5 MG/3 ML Neb Soln NEB PRN ×3 (10:25→20:38)
--- NOTE | 2018-09-02 10:31 | PN ---
DATE SEEN: 09/02/2018 SUBJECTIVE: Mr. Bright is an 78-year-old male, seen in swing bed. Doing well. Thoracentesis by Dr. Jade, 1000 mL. Feeling better. Oxygen is better. Not requiring O2. LABORATORY STUDIES: None. Outstanding glucose is noted at 143. INR 2.03. OBJECTIVE: VITAL SIGNS: 37.3, 63, 99/55, 20, 94%. GENERAL: In good spirits. Sitting in his favorite chair in the corner by the window. NECK: Benign. No JVD. CHEST: Better air exchange particularly in left lower lobe. HEART: Distant heart sounds. Occasional ectopy. Left pleural effusion. PLAN: All looks well, upcoming followup visits and care planned at [facility] with Dr. Jade and staff. /[id number] VISHAL/CHRISTOPHER
[2018-09-02] MEDS: Levofloxacin 250 MG Tab PO SCH (16:33)
[2018-09-02] MEDS: Warfarin 5 MG Tab PO SCH (16:34)
[2018-09-02] MEDS: Mirtazapine 15 MG Tab PO SCH (20:37)
[2018-09-03] MEDS: Levothyroxine 100 MCG Tab PO SCH (06:31)
[2018-09-03 07:51] VITALS: BP 120/64
[2018-09-03] MEDS: Torsemide 20 MG Tab PO SCH (08:08)
[2018-09-03] MEDS: Formoterol/Mometasone 200-5 MCG 8.8 GM Inhaler IH SCH (08:09)
[2018-09-03] MEDS: Folic Acid 1 MG Tab PO SCH (08:09)
[2018-09-03] MEDS: Aspirin 81 MG Tab.EC PO SCH (08:10)
[2018-09-03] MEDS: Isosorbide Mononitrate 60 MG Tab.ER PO SCH (08:10)
[2018-09-03] MEDS: atorvaSTATin 40 MG Tab PO SCH (08:10)
[2018-09-03] MEDS: Cyanocobalamin (Vitamin B12) 1,000 MCG Tab PO SCH (08:11)
[2018-09-03] MEDS: Polyethylene Glycol 3350 Powder 17 GM Packet PO SCH (08:12)
[2018-09-03] MEDS: Gabapentin 300 MG Cap PO SCH (08:15)
[2018-09-03] MEDS: Insulin Lispro 100 Unit/ML 3 ML KwikPen SUBCUT SCH (08:16)
[2018-09-03] MEDS: Insulin Glargine,Human Rec. Analog 100 Units/ML 3 ML Pen SUBCUT SCH (08:17)
[2018-09-03] MEDS: Albuterol/Ipratropium 3.0-0.5 MG/3 ML Neb Soln NEB PRN (09:51)
--- NOTE | 2018-09-04 09:10 | DISCH ---
DISCHARGE DATE: 09/03/2018 DISCHARGE DIAGNOSES: History of lung carcinoma, recurrent chronic pleural effusions, and rehabilitation. HOSPITAL COURSE: Ethan Bright is a delightful 78-year-old male, who was admitted from [facility] for rehab. History of lung carcinoma intervention. Chronic left pleural effusions that have been drained. Hospitalized for rehab. LABORATORY STUDIES: Sugars only. INR therapeutic 2.01. During this hospital stay, he was actively involved in rehab PT, OT ambulation and assistive devices. Made good clinical response. He had a single thoracentesis performed by Dr. Jade with good results, 1000 mL. Radiographs pre and post thoracentesis were satisfactory. Did well, ambulated, feels better, going home to a good living situation. DISPOSITION: Discharged home. Please see med recon list. Appointment with Dr. Jade upcoming and planned. OBJECTIVE: VITAL SIGNS: 36.8, 84, 120/64, 15, 96% on room air. GENERAL: In good spirits. NECK: Benign. Thyroid small. CHEST: Decreased breath sounds in left lower lung, but good air exchange. HEART: Occasional ectopy. Soft, murmur. ABDOMEN: Benign. CONDITION ON DISCHARGE: Discharge in good condition. Home health followup plan. /[id number] VISHAL/CHRISTOPHER
== END 2018-09-03 12:01 | disposition home health service (06) | DRG 861 ==
LOC: FB.MS 13:31
PROVIDERS: ADMIT Family Medicine; ATTEND Family Medicine
PROC: 0W9B3ZZ Drainage of Left Pleural Cavity, Percutaneous Approach (ICD-10-PCS; principal; 2018-09-01)
DX: R53.1 Weakness (principal); Z66 Do not resuscitate; J98.4 Other disorders of lung; J90 Pleural effusion, not elsewhere classified; I13.0 Hypertensive heart and chronic kidney disease with heart failure and stage 1 through stage 4 chronic kidney disease, or unspecified chronic kidney disease; I50.9 Heart failure, unspecified; N18.9 Chronic kidney disease, unspecified; E11.22 Type 2 diabetes mellitus with diabetic chronic kidney disease; E11.65 Type 2 diabetes mellitus with hyperglycemia; H91.90 Unspecified hearing loss, unspecified ear; H54.62 Unqualified visual loss, left eye, normal vision right eye; I48.91 Unspecified atrial fibrillation; J44.9 Chronic obstructive pulmonary disease, unspecified; M19.90 Unspecified osteoarthritis, unspecified site; E03.9 Hypothyroidism, unspecified; F41.9 Anxiety disorder, unspecified; E66.9 Obesity, unspecified; D64.9 Anemia, unspecified; E11.40 Type 2 diabetes mellitus with diabetic neuropathy, unspecified; Z92.3 Personal history of irradiation; Z79.82 Long term (current) use of aspirin; Z68.35 Body mass index [BMI] 35.0-35.9, adult; Z79.01 Long term (current) use of anticoagulants; Z85.118 Personal history of other malignant neoplasm of bronchus and lung; Z79.4 Long term (current) use of insulin; Z87.01 Personal history of pneumonia (recurrent); Z88.8 Allergy status to other drugs, medicaments and biological substances; Z95.5 Presence of coronary angioplasty implant and graft; Z87.891 Personal history of nicotine dependence; Z86.14 Personal history of Methicillin resistant Staphylococcus aureus infection; Z79.899 Other long term (current) drug therapy
CPT/HCPCS: 36415; 71046; 82962; 85014; 85018; 85610; 94150; 94640; 97110-GP; 97116-GP; 97161-GP; 97165-GO; 97530-GO; 97535-GO; A9270-GY; J1815; J1815-GY; J7620-GY

== ENCOUNTER 2018-10-21 17:04 | Observation (INO) | payer BC, MEDICARE ==
--- NOTE | 2018-10-21 17:23 | EDM.PDOC ---
ED HPI GENERAL MEDICAL PROBLEM - General Chief Complaint: General Stated Complaint: LOW BLOOD WORK Time Seen by Provider: 10/21/18 17:23 Source of Information: Reports: Patient, Family, Old Records History Limitations: Reports: No Limitations - History of Present Illness INITIAL COMMENTS - FREE TEXT/NARRATIVE: presented to ER sent by clinic provider with concerns for worsening renal function, increasing fatigue, feeling slightly dyspneic with exertion. States he was up in [place] recently and transfused 3 PRBCs for Hb 6.5. Workup including GI workup showed no obvious signs of blood loss. Came here for swing bed and felt pretty good for a while. Past history of needing therapeutic thoracentesis for recurrent pleural effusion but doesn't feel like that now. has been following outpatient with Valarie at [facility] and notes that hemoglobin is dropping, and renal function has been worsening. They increased his diuretics last week and he thinks he lost about 10 lbs. No swelling in his legs. Also had a swollen bump on his left elbow, and then increasing redness around and down his arm, started clindamycin for it yesterday and it seems to be improving. no fever, chills, sweats, cough, leg swelling, recent URI, change in bowel habits, nausea, symptoms. - Related Data Allergies Allergy/AdvReac Type Severity Reaction Status Date / Time prednisone Allergy Respiratory Verified 09/18/17 12:55 Distress Home Meds: Home Meds Levothyroxine [Synthroid] 100 mcg PO DAILY 10/21/13 [History] Albuterol [Ventolin HFA] 2 puff INH Q6H PRN 07/21/15 [History] Insulin Aspart [NovoLOG] 5 units SUBCUT TIDMEALS 07/21/15 [History] Warfarin [Coumadin] 5 mg PO SUTUTH 07/21/15 [History] Warfarin [Coumadin] 7.5 mg PO MOWEFRSA 07/21/15 [History] Albuterol/Ipratropium [DuoNeb 3.0-0.5 MG/3 ML] 3 ml NEB Q4H PRN 09/18/17 [ History] Colchicine 0.6 mg PO ASDIRECTED PRN 09/18/17 [History] Fluticasone/Salmeterol [Advair 250-50] 1 puff INH BID 09/18/17 [History] Isosorbide Mononitrate [Imdur] 60 mg PO DAILY 09/18/17 [History] atorvaSTATin Calcium [Lipitor] 40 mg PO DAILY 09/18/17 [History] Aspirin [Ecotrin EC] 81 mg PO DAILY 08/28/18 [History] Cyanocobalamin (Vitamin B-12) [B-12] 1,000 mcg PO DAILY 08/28/18 [History] Insulin Detemir [Levemir] 34 unit SUBCUT DAILY 08/28/18 [History] Mirtazapine 7.5 mg PO BEDTIME 08/28/18 [History] Folic Acid 1 mg PO DAILY #100 tablet 09/03/18 [Rx] Gabapentin [Neurontin] 300 mg PO BID #90 cap 09/03/18 [Rx] Torsemide 60 mg PO BID 3 Days #60 tablet 09/03/18 [Rx] Azithromycin 500 mg PO DAILY 10/21/18 [History] Clindamycin HCl [Cleocin] 150 mg PO Q8H 10/21/18 [History] Losartan [Cozaar] 12.5 mg PO DAILY 10/22/18 [History] Nitroglycerin [Nitrostat] 0.4 mg SL Q5M PRN 10/22/18 [History] Potassium Chloride [Klor-Con M20] 20 meq PO DAILY 10/22/18 [History] Past Medical History HEENT History: Reports: Cataract, Hard of Hearing, Other (See Below) Other HEENT History: 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 Cardiovascular History: Reports: Afib, Heart Failure, High Cholesterol, Hypertension, Stents Other Cardiovascular History: Non-stemi NM. Respiratory History: Reports: Asthma, COPD, Pneumonia, Recurrent, SOB Other Respiratory History: pleural effusion, hx of lung CA 2003 Gastrointestinal History: Reports: Other (See Below) Other Gastrointestinal History: Constipation and diarrhea issues. Genitourinary History: Reports: Renal Disease, Retention, Urinary Other Genitourinary History: hematuria, hyperuricemia, CKD Musculoskeletal History: Reports: Other (See Below) Other Musculoskeletal History: Mild arthritis, especially to fingers. Neurological History: Reports: Other (See Below) Other Neuro History: Episode of major headache last Spring, involved medications and a biopsy. Psychiatric History: Reports: Anxiety Endocrine/Metabolic History: Reports: Diabetes, Type I, Hypothyroidism, Obesity/ BMI 30+ Hematologic History: Reports: Anticoagulation Therapy Other Hematologic History: coagulopathy Oncologic (Cancer) History: Reports: Lung Other Oncologic History: Renal mass. Lung CA 1994. Dermatologic History: Reports: Other (See Below) Other Dermatologic History: Dry skin, easily bruised. - Infectious Disease History Infectious Disease History: Reports: None Other Infectious Disease History: MRSA at one time, ears ?? Uncertain of childhood illnesses. - Past Surgical History HEENT Surgical History: Reports: Cataract Surgery Cardiovascular Surgical History: Reports: Coronary Artery Stent Respiratory Surgical History: Reports: Other (See Below) Social & Family History - Family History HEENT: Reports: Hearing Impairment, Macular Degeneration : Reports: None Musculoskeletal: Reports: Arthritis, Back pain, Chronic Neurological: Reports: CVA Endocrine/Metabolic: Reports: Diabetes, Type I Dermatologic: Reports: None - Tobacco Use Smoking Status *Q: Unknown Ever Smoked - Caffeine Use Caffeine Use: Reports: Soda - Living Situation & Occupation Living situation: Reports: Occupation: Retired ED ROS GENERAL - Review of Systems Review Of Systems: ROS reveals no pertinent complaints other than HPI. ED EXAM, GENERAL - Physical Exam Exam: See Below Free Text/Narrative:: Gen.: Alert, very pleasant no acute distress. Pupils are equal and reactive, facial muscles are symmetric, mucous members are moist. Neck is supple and there is no cervical lymph adenopathy. Lungs are clear throughout with good air movement overall, heart is irregular rhythm but normal rate. Abdomen positive bowel sounds, soft nondistended nontender. Peripheral pulses +2 and patient appears euvolemic with no lower extremity edema. Muscular strength is equal and bilaterally in upper and lower extremities and his gait is normal. Skin shows a reddened appearance over his left forearm and elbow is slightly swollen but the joint is freely movable and he is not in any acute discomfort. Course - Vital Signs Text/Narrative:: initial impressionslow onset of worsening symptoms, will get repeat labs here, EKG, chest x-ray. On monitors. Last Recorded V/S: Last Vital Signs Temp 36.6 C 10/22/18 04:34 Pulse 70 10/22/18 04:34 Resp 22 H 10/22/18 04:34 BP 111/57 L 10/22/18 04:34 Pulse Ox 95 10/22/18 04:34 - Orders/Labs/Meds Orders: Active Orders 24 hr Category Date Time Status EKG Documentation Completion [RC] ASDIRECTED Care 10/21/18 17:22 Active Chest 2V [CR] Stat Exams 10/21/18 17:21 Taken EKG 12 Lead [EK] Routine Ther 10/21/18 17:21 Ordered Medication Orders Albuterol (Ventolin Hfa) 0 gm INH Q6H PRN PRN Reason: Dyspnea Last Admin: 10/22/18 08:07 Dose: 2 puff Albuterol/Ipratropium (Duoneb 3.0-0.5 Mg/3 Ml) 3 ml NEB Q4H PRN PRN Reason: Dyspnea Aspirin (Halfprin) 81 mg PO DAILY [facility] Atorvastatin Calcium (Lipitor) 40 mg PO DAILY [facility] Cyanocobalamin (Vitamin B12) 1,000 mcg PO DAILY [facility] Folic Acid (Folic Acid) 1 mg PO DAILY [facility] Gabapentin (Neurontin) 300 mg PO BID [facility] Last Admin: 10/21/18 22:14 Dose: 300 mg Sodium Chloride (Normal Saline) 250 mls @ 100 mls/hr IV ASDIRECTED [facility] Last Admin: 10/22/18 00:35 Dose: 100 mls/hr Isosorbide Mononitrate (Imdur) 60 mg PO DAILY [facility] Levothyroxine Sodium (Synthroid) 100 mcg PO DAILY [facility] Mirtazapine (Remeron) 7.5 mg PO BEDTIME [facility] Last Admin: 10/21/18 22:14 Dose: 7.5 mg Fluticasone/Salmeterol [Advair 250-50] 1 PuffPt Own 1 puff INH BID [facility] Last Admin: 10/21/18 22:15 Dose: 1 puff Fluticasone/Salmeterol [Advair 250-50 Diskus]Pt Own 0 each IH DAILY [facility] Insulin Detemir [ Levemir] Insulin * Ptom 34 unit SUBCUT DAILY [facility] Last Admin: 10/22/18 08:05 Dose: 34 unit Insulin Aspart [ (Novolog] *Ptom) 5 units SUBCUT TIDMEALS [facility] Last Admin: 10/22/18 08:05 Dose: 5 units Sodium Chloride (Saline Flush) 10 ml FLUSH ASDIRECTED PRN PRN Reason: Keep Vein Open Last Admin: 10/22/18 04:43 Dose: 10 ml Admin: 10/22/18 00:34 Dose: 10 ml Torsemide (Demadex) 60 mg PO BID SUE Last Admin: 10/21/18 22:13 Dose: 60 mg Labs: Laboratory Tests 10/21/18 10/21/18 10/21/18 Range/Units 17:35 17:35 17:35 WBC 7.2 (4.5-12.0) X10-3/uL RBC 2.94 L (4.30-5.75) x10(6)uL Hgb 7.4 L (13.5-17.8) g/dL Hct 22.9 L (30.0-51.3) % MCV 77.8 L (80-96) fL MCH 25.0 L (27.7-33.6) pg MCHC 32.1 L (32.2-35.4) g/dL RDW 21.0 H (11.5-15.5) % Plt Count 222 (125-369) X10(3)uL MPV 7.3 L (7.4-10.4) fL Neut % (Auto) 71.0 (46-82) % Lymph % (Auto) 15.3 (13-37) % Bracken % (Auto) 11.1 (4-12) % Eos % (Auto) 2 (1.0-5.0) % Baso % (Auto) 0 (0-2) % Neut # (Auto) 5.1 (1.6-8.3) # Lymph # (Auto) 1.1 (0.6-5.0) # Bracken # (Auto) 0.8 (0.0-1.3) # Eos # (Auto) 0.2 (0.0-0.8) # Baso # (Auto) 0.0 (0.0-0.2) # PT 36.8 H* (8.7-11.1) INR 3.84 H (0.89-1.13) Sodium 136 (135-145) mmol/L Potassium 3.0 L (3.5-5.3) mmol/L Chloride 94 L D (100-110) mmol/L Carbon Dioxide 32 (21-32) mmol/L BUN 82 H D (7-18) mg/dL Creatinine 2.6 H* (0.70-1.30) mg/dL Est Cr Clr Drug Dosing TNP Estimated GFR (MDRD) 24 L (>60) BUN/Creatinine Ratio 31.5 H (9-20) Glucose 86 (80-116) mg/dL Calcium 8.9 (8.6-10.2) mg/dL Magnesium 2.3 (1.8-2.5) mg/dL Total Bilirubin 0.9 (0.1-1.3) mg/dL AST 27 H (5-25) IU/L ALT 19 (12-36) U/L Alkaline Phosphatase 172 H (56-112) IU/L Troponin I (<0.017-0.056) ng/mL NT-Pro-B Natriuret Pep (<=450) pg/mL Total Protein 7.0 (6.0-8.0) g/dL Albumin 2.7 L (3.2-4.6) g/dL Globulin 4.3 g/dL Albumin/Globulin Ratio 0.6 Blood Type Gel Antibody Screen Crossmatch 10/21/18 10/21/18 10/21/18 Range/Units 17:35 17:35 17:35 WBC (4.5-12.0) X10-3/uL RBC (4.30-5.75) x10(6)uL Hgb (13.5-17.8) g/dL Hct (30.0-51.3) % MCV (80-96) fL MCH (27.7-33.6) pg MCHC (32.2-35.4) g/dL RDW (11.5-15.5) % Plt Count (125-369) X10(3)uL MPV (7.4-10.4) fL Neut % (Auto) (46-82) % Lymph % (Auto) (13-37) % Bracken % (Auto) (4-12) % Eos % (Auto) (1.0-5.0) % Baso % (Auto) (0-2) % Neut # (Auto) (1.6-8.3) # Lymph # (Auto) (0.6-5.0) # Bracken # (Auto) (0.0-1.3) # Eos # (Auto) (0.0-0.8) # Baso # (Auto) (0.0-0.2) # PT (8.7-11.1) INR (0.89-1.13) Sodium (135-145) mmol/L Potassium (3.5-5.3) mmol/L Chloride (100-110) mmol/L Carbon Dioxide (21-32) mmol/L BUN (7-18) mg/dL Creatinine (0.70-1.30) mg/dL Est Cr Clr Drug Dosing Estimated GFR (MDRD) (>60) BUN/Creatinine Ratio (9-20) Glucose (80-116) mg/dL Calcium (8.6-10.2) mg/dL Magnesium (1.8-2.5) mg/dL Total Bilirubin (0.1-1.3) mg/dL AST (5-25) IU/L ALT (12-36) U/L Alkaline Phosphatase (56-112) IU/L Troponin I 0.093 H* (<0.017-0.056) ng/mL NT-Pro-B Natriuret Pep 3184 H* (<=450) pg/mL Total Protein (6.0-8.0) g/dL Albumin (3.2-4.6) g/dL Globulin g/dL Albumin/Globulin Ratio Blood Type O POSITIVE Gel Antibody Screen Negative Crossmatch See Detail Meds: Medications Generic Name Dose Route Start Last Admin Trade Name Freq PRN Reason Stop Dose Admin Albuterol 0 gm 10/21/18 19:38 10/22/18 08:07 Ventolin Hfa INH 2 puff Q6H PRN Administration Dyspnea Albuterol/Ipratropium 3 ml 10/21/18 19:38 Duoneb 3.0-0.5 Mg/3 Ml NEB Q4H PRN Dyspnea Aspirin 81 mg 10/22/18 09:00 Halfprin PO DAILY SUE Atorvastatin Calcium 40 mg 10/22/18 09:00 Lipitor PO DAILY SUE Cyanocobalamin 1,000 mcg 10/22/18 09:00 Vitamin B12 PO DAILY SUE Folic Acid 1 mg 10/22/18 09:00 Folic Acid PO DAILY SUE Gabapentin 300 mg 10/21/18 21:00 10/21/18 22:14 Neurontin PO 300 mg BID SUE Administration Sodium Chloride 250 mls @ 100 mls/hr 10/21/18 19:45 10/22/18 00:35 Normal Saline IV 100 mls/hr ASDIRECTED SUE Administration Isosorbide Mononitrate 60 mg 10/22/18 09:00 Imdur PO DAILY SUE Levothyroxine Sodium 100 mcg 10/22/18 09:00 Synthroid PO DAILY SUE Mirtazapine 7.5 mg 10/21/18 21:00 10/21/18 22:14 Remeron PO 7.5 mg BEDTIME SUE Administration Fluticasone/ 1 puff 10/21/18 21:00 10/21/18 22:15 Salmeterol [Advair INH 1 puff 250-50] 1 PuffPt BID SUE Administration Own Fluticasone/ 0 each 10/22/18 09:00 Salmeterol [Advair IH 250-50 Diskus]Pt DAILY SUE Own Insulin Detemir [ 34 unit 10/22/18 09:00 10/22/18 08:05 Levemir] Insulin * SUBCUT 34 unit Ptom DAILY SUE Administration Insulin Aspart [ 5 units 10/22/18 08:00 10/22/18 08:05 Novolog] *Ptom SUBCUT 5 units TIDMEALS SUE Administration Sodium Chloride 10 ml 10/21/18 19:34 10/22/18 04:43 Saline Flush FLUSH 10 ml ASDIRECTED PRN Administration Keep Vein Open Torsemide 60 mg 10/21/18 21:00 10/21/18 22:13 Demadex PO 60 mg BID SUE Administration Discontinued Medications Generic Name Dose Route Start Last Admin Trade Name Freq PRN Reason Stop Dose Admin Furosemide 40 mg 10/22/18 00:30 10/22/18 00:30 Lasix IVPUSH 10/22/18 00:31 40 mg ONETIME ONE Administration Insulin Aspart [ 5 units 10/22/18 08:00 Novolog] *Ptom SUBCUT TIDMEALS SUE Potassium Chloride 40 meq 10/22/18 06:26 10/22/18 07:48 Klor-Con M20 PO 10/22/18 06:27 40 meq ONETIME ONE Administration - Re-Assessments/Exams Free Text/Narrative Re-Assessment/Exam: 10/21/18 19:13 labs reviewed, patient with worsening kidney function, worsening renal function , slightly elevated troponin. Given his overall clinical picture does not appear to have any infection and does not seem to be significantly volume up at this suspect most the symptoms are treatable to his worsening anemia and discussed with the family transfusing 2 units slowly overnight and reevaluating in the a.m. Discussed with my colleague Dr. Thornton who will place admitting orders. Departure - Departure Time of Disposition: 20:00 Disposition: Admitted As Inpatient 64 Clinical Impression: Anemia, Acute kidney failure, Atrial fibrillation and flutter, History of coronary artery stent placement, Diabetes mellitus - Discharge Information *PRESCRIPTION DRUG MONITORING PROGRAM REVIEWED*: Not Applicable *COPY OF PRESCRIPTION DRUG MONITORING REPORT IN PATIENT JANELL: Not Applicable - My Orders Last 24 Hours: My Active Orders 10/21/18 17:21 Chest 2V [CR] Stat EKG 12 Lead [EK] Routine 10/21/18 17:22 EKG Documentation Completion [RC] ASDIRECTED - Assessment/Plan Last 24 Hours: My Active Orders 10/21/18 17:21 Chest 2V [CR] Stat EKG 12 Lead [EK] Routine 10/21/18 17:22 EKG Documentation Completion [RC] ASDIRECTED
[2018-10-21] MEDS ORDERED: Albuterol 8 GM Inhaler *PTOM INH PRN (19:38)
[2018-10-21] MEDS ORDERED: Albuterol/Ipratropium 3.0-0.5 MG/3 ML Neb Soln NEB PRN (19:38)
[2018-10-21] MEDS ORDERED: Sodium Chloride 0.9% 250 ML IV SCH (19:45)
[2018-10-21] MEDS ORDERED: FLUTICASONE INH SCH (21:00)
[2018-10-21] MEDS ORDERED: MIRTAZAPINE 15 MG PO SCH (21:00)
[2018-10-21] MEDS ORDERED: SALMETEROL INH SCH (21:00)
[2018-10-21] MEDS: TORSEMIDE 20 MG PO SCH (22:13)
[2018-10-21] MEDS: Gabapentin 300 MG Cap PO SCH (22:14)
[2018-10-21] MEDS ORDERED: Furosemide 20 MG/2 ML VIAL IVPUSH ONE (23:30)
[2018-10-22] MEDS ORDERED: Furosemide 40 MG/4 ML VIAL IVPUSH ONE (00:30)
[2018-10-22] MEDS: Sodium Chloride 0.9% 10 ML Syringe FLUSH PRN ×2 (00:34→04:43)
[2018-10-22] MEDS ORDERED: Potassium Chloride 20 MEQ Tab.ER PO ONE ×2 (06:26→18:47)
[2018-10-22] MEDS ORDERED: INSULIN ASPART SUBCUT SCH (08:00)
[2018-10-22] MEDS: INSULIN ASPART SUBCUT SCH ×3 (08:05→18:10)
[2018-10-22] MEDS ORDERED: Colchicine 0.6 MG Tab PO PRN (08:21)
[2018-10-22] MEDS ORDERED: Nitroglycerin 0.4 MG Tab.SL *PTOM SL PRN (08:21)
[2018-10-22] MEDS ORDERED: SALMETEROL INH SCH (08:22)
[2018-10-22] MEDS ORDERED: FLUTICASONE INH SCH (08:22)
--- NOTE | 2018-10-22 08:36 | PCM.HP.2 ---
H&P History of Present Illness - General Date of Service: 10/22/18 Admit Problem/Dx: This is an 78-year-old male patient that had labs 2 days ago. He was called by the nurse practitioner and told to come over he to the ER because of anemia. Says is "increased short of breath for the last 2 weeks. He denies any chest pain, leg swelling, PND or orthopnea. Denies fevers, chills or cough. He says he was in the hospital over month ago and had transfusions. He said he had a workup and no EGD or colonoscopy is ever been done. He says his been offered but has refused. He denies abdominal pain at this time. He denies any melena, hematochezia, hematemesis, hematuria. He was seen [facility] by Dr. Morris 2 days ago and placed on clindamycin and Zithromax for cellulitis his left arm. He says it's improving. He's currently on Coumadin for atrial fibrillation. He has history coronary artery disease. Source of Information: Patient History Limitations: Reports: No Limitations - Related Data Allergies/Adverse Reactions: Allergies Allergy/AdvReac Type Severity Reaction Status Date / Time prednisone Allergy Respiratory Verified 09/18/17 12:55 Distress Home Medications: Home Meds Levothyroxine [Synthroid] 100 mcg PO DAILY 10/21/13 [History] Albuterol [Ventolin HFA] 2 puff INH Q6H PRN 07/21/15 [History] Insulin Aspart [NovoLOG] 5 units SUBCUT TIDMEALS 07/21/15 [History] Warfarin [Coumadin] 5 mg PO SUTUTH 07/21/15 [History] Warfarin [Coumadin] 7.5 mg PO MOWEFRSA 07/21/15 [History] Albuterol/Ipratropium [DuoNeb 3.0-0.5 MG/3 ML] 3 ml NEB Q4H PRN 09/18/17 [ History] Colchicine 0.6 mg PO ASDIRECTED PRN 09/18/17 [History] Fluticasone/Salmeterol [Advair 250-50] 1 puff INH BID 09/18/17 [History] Isosorbide Mononitrate [Imdur] 60 mg PO DAILY 09/18/17 [History] atorvaSTATin Calcium [Lipitor] 40 mg PO DAILY 09/18/17 [History] Aspirin [Ecotrin EC] 81 mg PO DAILY 08/28/18 [History] Cyanocobalamin (Vitamin B-12) [B-12] 1,000 mcg PO DAILY 08/28/18 [History] Insulin Detemir [Levemir] 34 unit SUBCUT DAILY 08/28/18 [History] Mirtazapine 7.5 mg PO BEDTIME 08/28/18 [History] Folic Acid 1 mg PO DAILY #100 tablet 09/03/18 [Rx] Gabapentin [Neurontin] 300 mg PO BID #90 cap 09/03/18 [Rx] Torsemide 60 mg PO BID 3 Days #60 tablet 09/03/18 [Rx] Azithromycin 500 mg PO DAILY 10/21/18 [History] Clindamycin HCl [Cleocin] 150 mg PO Q8H 10/21/18 [History] Losartan [Cozaar] 12.5 mg PO DAILY 10/22/18 [History] Nitroglycerin [Nitrostat] 0.4 mg SL Q5M PRN 10/22/18 [History] Potassium Chloride [Klor-Con M20] 20 meq PO DAILY 10/22/18 [History] Past Medical History HEENT History: Reports: Cataract, Hard of Hearing, Other (See Below) Other HEENT History: 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 Cardiovascular History: Reports: Afib, Heart Failure, High Cholesterol, Hypertension, Stents Other Cardiovascular History: Non-stemi ND. Respiratory History: Reports: Asthma, COPD, Pneumonia, Recurrent, SOB Other Respiratory History: pleural effusion, hx of lung CA 2003 Gastrointestinal History: Reports: Other (See Below) Other Gastrointestinal History: Constipation and diarrhea issues. Genitourinary History: Reports: Renal Disease, Retention, Urinary Other Genitourinary History: hematuria, hyperuricemia, CKD Musculoskeletal History: Reports: Other (See Below) Other Musculoskeletal History: Mild arthritis, especially to fingers. Neurological History: Reports: Other (See Below) Other Neuro History: Episode of major headache last Spring, involved medications and a biopsy. Psychiatric History: Reports: Anxiety Endocrine/Metabolic History: Reports: Diabetes, Type I, Hypothyroidism, Obesity/ BMI 30+ Hematologic History: Reports: Anticoagulation Therapy Other Hematologic History: coagulopathy Oncologic (Cancer) History: Reports: Lung Other Oncologic History: Renal mass. Lung CA 1994. Dermatologic History: Reports: Other (See Below) Other Dermatologic History: Dry skin, easily bruised. - Infectious Disease History Infectious Disease History: Reports: None Other Infectious Disease History: MRSA at one time, ears ?? Uncertain of childhood illnesses. - Past Surgical History HEENT Surgical History: Reports: Cataract Surgery Cardiovascular Surgical History: Reports: Coronary Artery Stent Respiratory Surgical History: Reports: Other (See Below) Social & Family History - Family History Family Medical History: Noncontributory HEENT: Reports: Hearing Impairment, Macular Degeneration : Reports: None Musculoskeletal: Reports: Arthritis, Back pain, Chronic Neurological: Reports: CVA Endocrine/Metabolic: Reports: Diabetes, Type I Dermatologic: Reports: None - Tobacco Use Smoking Status *Q: Former Smoker Years of Tobacco use: 30 Packs/Tins Daily: 1 Used Tobacco, but Quit: Yes Month/Year Tobacco Last Used: nov Second Hand Smoke Exposure: No - Caffeine Use Caffeine Use: Reports: Soda - Alcohol Use Days Per Week of Alcohol Use: 1 Number of Drinks Per Day: 1 Total Drinks Per Week: 1 Date of Last Drink: 10/14/18 Time of Last Drink: 20:00 - Recreational Drug Use Recreational Drug Use: No - Living Situation & Occupation Living situation: Reports: Occupation: Retired H&P Review of Systems - Review of Systems: Review Of Systems: See Below General: Reports: Weakness, Fatigue HEENT: Reports: No Symptoms Pulmonary: Reports: Shortness of Breath. Denies: Cough, Sputum, Hemoptysis Cardiovascular: Reports: No Symptoms Gastrointestinal: Reports: No Symptoms Genitourinary: Reports: No Symptoms Musculoskeletal: Reports: No Symptoms Skin: Reports: Rash, Erythema Psychiatric: Reports: No Symptoms Neurological: Reports: No Symptoms Hematologic/Lymphatic: Reports: No Symptoms Immunologic: Reports: No Symptoms Exam - Exam Exam: See Below - Vital Signs Vital Signs: Last Vital Signs Temp 98 F 10/22/18 04:34 Pulse 70 10/22/18 04:34 Resp 22 H 10/22/18 04:34 BP 111/57 L 10/22/18 04:34 Pulse Ox 95 10/22/18 04:34 Weight: 216 lb 8 oz - Exam General: Alert, Oriented, Cooperative HEENT: Hearing Intact, Posterior Pharynx Clear, TMs Clear Neck: Supple, Trachea Midline Lungs: Clear to Auscultation, Normal Respiratory Effort. No: Crackles, Rales, Rhonchi Cardiovascular: Regular Rate, Regular Rhythm. No: Systolic Murmur, Diastolic Murmur GI/Abdominal Exam: Normal Bowel Sounds, Soft, Non-Tender, No Organomegaly, No Distention, No Abnormal Bruit, No Mass Rectal (Males) Exam: Prostate Normal, Other (Stool normal color. Guaiac done and pending) Back Exam: Normal Inspection, Full Range of Motion Extremities: Non-Tender, No Pedal Edema Skin: Warm, Dry, Other (Mild erythema left forearm) Neurological: Normal Speech, Normal Tone Neuro Extensive - Mental Status: Alert, Oriented x3, Normal Mood/Affect, Normal Cognition Neuro Extensive - Motor, Sensory, Reflexes: Normal Gait Psychiatric: Alert, Normal Affect, Normal Mood - Patient Data Lab Results Last 24 hrs: Laboratory Results - last 24 hr 10/21/18 10/21/18 10/21/18 Range/Units 17:35 17:35 17:35 WBC 7.2 (4.5-12.0) X10-3/uL RBC 2.94 L (4.30-5.75) x10(6)uL Hgb 7.4 L (13.5-17.8) g/dL Hct 22.9 L (30.0-51.3) % MCV 77.8 L (80-96) fL MCH 25.0 L (27.7-33.6) pg MCHC 32.1 L (32.2-35.4) g/dL RDW 21.0 H (11.5-15.5) % Plt Count 222 (125-369) X10(3)uL MPV 7.3 L (7.4-10.4) fL Neut % (Auto) 71.0 (46-82) % Lymph % (Auto) 15.3 (13-37) % [place] % (Auto) 11.1 (4-12) % Eos % (Auto) 2 (1.0-5.0) % Baso % (Auto) 0 (0-2) % Neut # (Auto) 5.1 (1.6-8.3) # Lymph # (Auto) 1.1 (0.6-5.0) # [place] # (Auto) 0.8 (0.0-1.3) # Eos # (Auto) 0.2 (0.0-0.8) # Baso # (Auto) 0.0 (0.0-0.2) # PT 36.8 H* (8.7-11.1) INR 3.84 H (0.89-1.13) Sodium 136 (135-145) mmol/L Potassium 3.0 L (3.5-5.3) mmol/L Chloride 94 L D (100-110) mmol/L Carbon Dioxide 32 (21-32) mmol/L BUN 82 H D (7-18) mg/dL Creatinine 2.6 H* (0.70-1.30) mg/dL Est Cr Clr Drug Dosing TNP Estimated GFR (MDRD) 24 L (>60) BUN/Creatinine Ratio 31.5 H (9-20) Glucose 86 (80-116) mg/dL Calcium 8.9 (8.6-10.2) mg/dL Magnesium 2.3 (1.8-2.5) mg/dL Total Bilirubin 0.9 (0.1-1.3) mg/dL AST 27 H (5-25) IU/L ALT 19 (12-36) U/L Alkaline Phosphatase 172 H (56-112) IU/L Troponin I (<0.017-0.056) ng/mL NT-Pro-B Natriuret Pep (<=450) pg/mL Total Protein 7.0 (6.0-8.0) g/dL Albumin 2.7 L (3.2-4.6) g/dL Globulin 4.3 g/dL Albumin/Globulin Ratio 0.6 Blood Type Gel Antibody Screen Crossmatch 10/21/18 10/21/18 10/21/18 Range/Units 17:35 17:35 17:35 WBC (4.5-12.0) X10-3/uL RBC (4.30-5.75) x10(6)uL Hgb (13.5-17.8) g/dL Hct (30.0-51.3) % MCV (80-96) fL MCH (27.7-33.6) pg MCHC (32.2-35.4) g/dL RDW (11.5-15.5) % Plt Count (125-369) X10(3)uL MPV (7.4-10.4) fL Neut % (Auto) (46-82) % Lymph % (Auto) (13-37) % [place] % (Auto) (4-12) % Eos % (Auto) (1.0-5.0) % Baso % (Auto) (0-2) % Neut # (Auto) (1.6-8.3) # Lymph # (Auto) (0.6-5.0) # [place] # (Auto) (0.0-1.3) # Eos # (Auto) (0.0-0.8) # Baso # (Auto) (0.0-0.2) # PT (8.7-11.1) INR (0.89-1.13) Sodium (135-145) mmol/L Potassium (3.5-5.3) mmol/L Chloride (100-110) mmol/L Carbon Dioxide (21-32) mmol/L BUN (7-18) mg/dL Creatinine (0.70-1.30) mg/dL Est Cr Clr Drug Dosing Estimated GFR (MDRD) (>60) BUN/Creatinine Ratio (9-20) Glucose (80-116) mg/dL Calcium (8.6-10.2) mg/dL Magnesium (1.8-2.5) mg/dL Total Bilirubin (0.1-1.3) mg/dL AST (5-25) IU/L ALT (12-36) U/L Alkaline Phosphatase (56-112) IU/L Troponin I 0.093 H* (<0.017-0.056) ng/mL NT-Pro-B Natriuret Pep 3184 H* (<=450) pg/mL Total Protein (6.0-8.0) g/dL Albumin (3.2-4.6) g/dL Globulin g/dL Albumin/Globulin Ratio Blood Type O POSITIVE Gel Antibody Screen Negative Crossmatch See Detail 10/22/18 10/22/18 10/22/18 Range/Units 05:55 05:55 05:55 WBC 6.4 (4.5-12.0) X10-3/uL RBC 3.30 L (4.30-5.75) x10(6)uL Hgb 8.5 L (13.5-17.8) g/dL Hct 26.2 L (30.0-51.3) % MCV 79.4 L (80-96) fL MCH 25.9 L (27.7-33.6) pg MCHC 32.6 (32.2-35.4) g/dL RDW 19.7 H (11.5-15.5) % Plt Count 207 (125-369) X10(3)uL MPV 7.8 (7.4-10.4) fL Neut % (Auto) 69.2 (46-82) % Lymph % (Auto) 16.2 (13-37) % [place] % (Auto) 11.2 (4-12) % Eos % (Auto) 3 (1.0-5.0) % Baso % (Auto) 0 (0-2) % Neut # (Auto) 4.5 (1.6-8.3) # Lymph # (Auto) 1.0 (0.6-5.0) # [place] # (Auto) 0.7 (0.0-1.3) # Eos # (Auto) 0.2 (0.0-0.8) # Baso # (Auto) 0.0 (0.0-0.2) # PT (8.7-11.1) INR (0.89-1.13) Sodium 136 (135-145) mmol/L Potassium 2.8 L* (3.5-5.3) mmol/L Chloride 97 L (100-110) mmol/L Carbon Dioxide 35 H (21-32) mmol/L BUN 80 H (7-18) mg/dL Creatinine 2.4 H* (0.70-1.30) mg/dL Est Cr Clr Drug Dosing 23.75 Estimated GFR (MDRD) 26 L (>60) BUN/Creatinine Ratio 33.3 H (9-20) Glucose 172 H D (80-116) mg/dL Calcium 8.8 (8.6-10.2) mg/dL Magnesium (1.8-2.5) mg/dL Total Bilirubin (0.1-1.3) mg/dL AST (5-25) IU/L ALT (12-36) U/L Alkaline Phosphatase (56-112) IU/L Troponin I 0.097 H* (<0.017-0.056) ng/mL NT-Pro-B Natriuret Pep 3531 H* (<=450) pg/mL Total Protein (6.0-8.0) g/dL Albumin (3.2-4.6) g/dL Globulin g/dL Albumin/Globulin Ratio Blood Type Gel Antibody Screen Crossmatch 10/22/18 Range/Units 05:55 WBC (4.5-12.0) X10-3/uL RBC (4.30-5.75) x10(6)uL Hgb (13.5-17.8) g/dL Hct (30.0-51.3) % MCV (80-96) fL MCH (27.7-33.6) pg MCHC (32.2-35.4) g/dL RDW (11.5-15.5) % Plt Count (125-369) X10(3)uL MPV (7.4-10.4) fL Neut % (Auto) (46-82) % Lymph % (Auto) (13-37) % [place] % (Auto) (4-12) % Eos % (Auto) (1.0-5.0) % Baso % (Auto) (0-2) % Neut # (Auto) (1.6-8.3) # Lymph # (Auto) (0.6-5.0) # [place] # (Auto) (0.0-1.3) # Eos # (Auto) (0.0-0.8) # Baso # (Auto) (0.0-0.2) # PT 32.3 H (8.7-11.1) INR 3.37 H (0.89-1.13) Sodium (135-145) mmol/L Potassium (3.5-5.3) mmol/L Chloride (100-110) mmol/L Carbon Dioxide (21-32) mmol/L BUN (7-18) mg/dL Creatinine (0.70-1.30) mg/dL Est Cr Clr Drug Dosing Estimated GFR (MDRD) (>60) BUN/Creatinine Ratio (9-20) Glucose (80-116) mg/dL Calcium (8.6-10.2) mg/dL Magnesium (1.8-2.5) mg/dL Total Bilirubin (0.1-1.3) mg/dL AST (5-25) IU/L ALT (12-36) U/L Alkaline Phosphatase (56-112) IU/L Troponin I (<0.017-0.056) ng/mL NT-Pro-B Natriuret Pep (<=450) pg/mL Total Protein (6.0-8.0) g/dL Albumin (3.2-4.6) g/dL Globulin g/dL Albumin/Globulin Ratio Blood Type Gel Antibody Screen Crossmatch Result Diagrams: 10/22/18 05:55 10/22/18 05:55 Leonardo Results Last 24 hrs: Microbiology 10/22/18 08:21 Stool Occult Blood (LEONARDO) - Final Stool / Feces - Problem List (1) Hypokalemia SNOMED Code(s): 23228404 ICD Code: E87.6 - HYPOKALEMIA Status: Acute Current Visit: Yes (2) Chronic renal failure SNOMED Code(s): 29409651 ICD Code: N18.9 - CHRONIC KIDNEY DISEASE, UNSPECIFIED Status: Acute Current Visit: Yes (3) Elevated troponin SNOMED Code(s): 956463548, 347471709, 618534813 ICD Code: R74.8 - ABNORMAL LEVELS OF OTHER SERUM ENZYMES Status: Acute Current Visit: Yes (4) Cellulitis SNOMED Code(s): 554899730 ICD Code: L03.90 - CELLULITIS, UNSPECIFIED Status: Acute Current Visit: Yes (5) Anticoagulated SNOMED Code(s): 869787729, 519730193 ICD Code: Z79.01 - [employer]IE[employer] STEWARD/STEWARDESS (CURRENT) USE OF ANTICOAGULANTS Status: Acute Current Visit: Yes (6) Palliative care status SNOMED Code(s): 136216431 ICD Code: Z51.5 - ENCOUNTER FOR PALLIATIVE CARE Status: Acute Current Visit: Yes (7) Anemia SNOMED Code(s): 344017880 ICD Code: D64.9 - ANEMIA, UNSPECIFIED Status: Acute Current Visit: Yes (8) Diabetes mellitus SNOMED Code(s): 05648787 ICD Code: E11.9 - TYPE 2 DIABETES MELLITUS WITHOUT COMPLICATIONS Status: Acute Current Visit: Yes (9) Dyspnea SNOMED Code(s): 753919927 ICD Code: R06.00 - DYSPNEA, UNSPECIFIED Status: Acute Current Visit: No Problem List Initiated/Reviewed/Updated: Yes Orders Last 24hrs: Active Orders 24 hr Category Date Time Status Patient Status [ADT] Routine ADT 10/21/18 19:34 Active Blood Glucose Check, Bedside [RC] TIDMEALS Care 10/21/18 19:34 Active EKG Documentation Completion [RC] ASDIRECTED Care 10/21/18 17:22 Active Height and Weight [RC] DAILY Care 10/21/18 19:34 Active Intake and Output [RC] QSHIFT Care 10/21/18 19:34 Active Oxygen Therapy [RC] PRN Care 10/21/18 19:34 Active Up With Assistance [RC] ASDIRECTED Care 10/21/18 19:34 Active VTE/DVT Education [RC] Per Unit Routine Care 10/21/18 19:34 Active Vital Signs [RC] Q4H Care 10/21/18 19:34 Active Consistent Carbohydrate Diet [DIET] Diet 10/21/18 Dinner Active Chest 2V [CR] Stat Exams 10/21/18 17:21 Taken Albuterol [Ventolin HFA] Med 10/21/18 19:38 Active 0 gm INH Q6H PRN Albuterol/Ipratropium [DuoNeb 3.0-0.5 MG/3 ML] Med 10/21/18 19:38 Active 3 ml NEB Q4H PRN Aspirin [Halfprin] Med 10/22/18 09:00 Active 81 mg PO DAILY Azithromycin [Zithromax] Med 10/22/18 09:00 Ordered 500 mg PO DAILY Clindamycin HCl [Cleocin] Med 10/22/18 08:30 Ordered 150 mg PO Q8H Colchicine [Colcrys] Med 10/22/18 08:21 Ordered 0.6 mg PO ASDIRECTED PRN Cyanocobalamin (Vitamin B12) [Vitamin B12] Med 10/22/18 09:00 Active 1,000 mcg PO DAILY Fluticasone/Salmeterol [Advair 250-50 Diskus] Med 10/22/18 09:00 Active 0 each IH DAILY Fluticasone/Salmeterol [Advair 250-50] Med 10/22/18 08:22 Active 1 puff INH BID Folic Acid Med 10/22/18 09:00 Active 1 mg PO DAILY Gabapentin [Neurontin] Med 10/21/18 21:00 Active 300 mg PO BID Insulin Aspart [Novolog] Med 10/22/18 08:00 Active 5 units SUBCUT TIDMEALS Insulin Detemir [Levemir] Med 10/22/18 09:00 Active 34 unit SUBCUT DAILY Isosorbide Mononitrate [Imdur] Med 10/22/18 09:00 Active 60 mg PO DAILY Levothyroxine [Synthroid] Med 10/22/18 09:00 Active 100 mcg PO DAILY Losartan [Cozaar] Med 10/22/18 09:00 Ordered 12.5 mg PO DAILY Mirtazapine [Remeron] Med 10/21/18 21:00 Active 7.5 mg PO BEDTIME Nitroglycerin [Nitrostat] Med 10/22/18 08:21 Ordered 0.4 mg SL Q5M PRN Potassium Chloride [Klor-Con M20] Med 10/22/18 09:00 Ordered 40 meq PO TID Sodium Chloride 0.9% [Normal Saline] 250 ml Med 10/21/18 19:45 Active IV ASDIRECTED Sodium Chloride 0.9% [Saline Flush] Med 10/21/18 19:34 Active 10 ml FLUSH ASDIRECTED PRN Torsemide [Demadex] Med 10/21/18 21:00 Active 60 mg PO BID atorvaSTATin [Lipitor] Med 10/22/18 09:00 Active 40 mg PO DAILY Peripheral IV Insertion Adult [OM.PC] Routine Oth 10/21/18 19:34 Ordered Saline Lock Insert [OM.PC] Routine Oth 10/21/18 19:34 Ordered Transfuse Red Blood Cells [COMM] Urgent Oth 10/21/18 19:34 Ordered Resuscitation Status Routine Resus Stat 10/21/18 19:34 Ordered EKG 12 Lead [EK] Routine Ther 10/21/18 17:21 Ordered Medication Orders Albuterol (Ventolin Hfa) 0 gm INH Q6H PRN PRN Reason: Dyspnea Last Admin: 10/22/18 08:07 Dose: 2 puff Albuterol/Ipratropium (Duoneb 3.0-0.5 Mg/3 Ml) 3 ml NEB Q4H PRN PRN Reason: Dyspnea Aspirin (Halfprin) 81 mg PO DAILY SUE Atorvastatin Calcium (Lipitor) 40 mg PO DAILY SUE Azithromycin (Zithromax) 500 mg PO DAILY SUE Clindamycin HCl (Cleocin) 150 mg PO Q8H [facility] Colchicine (Colcrys) 0.6 mg PO ASDIRECTED PRN PRN Reason: ACUTE GOUT Cyanocobalamin (Vitamin B12) 1,000 mcg PO DAILY [facility] Folic Acid (Folic Acid) 1 mg PO DAILY [facility] Gabapentin (Neurontin) 300 mg PO BID [facility] Last Admin: 10/21/18 22:14 Dose: 300 mg Sodium Chloride (Normal Saline) 250 mls @ 100 mls/hr IV ASDIRECTED [facility] Last Admin: 10/22/18 00:35 Dose: 100 mls/hr Isosorbide Mononitrate (Imdur) 60 mg PO DAILY [facility] Levothyroxine Sodium (Synthroid) 100 mcg PO DAILY [facility] Losartan Potassium (Cozaar) 12.5 mg PO DAILY [facility] Mirtazapine (Remeron) 7.5 mg PO BEDTIME [facility] Last Admin: 10/21/18 22:14 Dose: 7.5 mg Nitroglycerin (Nitrostat) 0.4 mg SL Q5M PRN PRN Reason: Chest Pain Fluticasone/Salmeterol [Advair 250-50 Diskus]Pt Own 0 each IH DAILY [facility] Insulin Detemir [ Levemir] Insulin * Ptom 34 unit SUBCUT DAILY [facility] Last Admin: 10/22/18 08:05 Dose: 34 unit Insulin Aspart [ (Novolog] *Ptom) 5 units SUBCUT TIDMEALS [facility] Last Admin: 10/22/18 08:05 Dose: 5 units Fluticasone/Salmeterol [Advair 250-50] 1 PuffPt Own 1 puff INH BID [facility] Potassium Chloride (Klor-Con M20) 40 meq PO TID [facility] Stop: 10/23/18 08:00 Sodium Chloride (Saline Flush) 10 ml FLUSH ASDIRECTED PRN PRN Reason: Keep Vein Open Last Admin: 10/22/18 04:43 Dose: 10 ml Admin: 10/22/18 00:34 Dose: 10 ml Torsemide (Demadex) 60 mg PO BID [facility] Last Admin: 10/21/18 22:13 Dose: 60 mg Assessment/Plan Comment:: 1. Admit for observation. 2. 2 units of RBCs given. 3. Do guaiac looking for source of bleeding. 4. Consider blood studies 5. SCD. Lovenox contraindicated 6. Hold Lovenox and continue antibiotics 7. By mouth potassium 1 day. Patient has chronic renal failure also. 8. I called [facility] to talk to his primary was not there. So I'm getting old records from his hospitalization from [place] anticipate sheet from [employer]. 9. Diabetic diet with Accu-Cheks 10. Up with assist 11. Serial troponins. 12. Patient requests to be a full code.
[2018-10-22] MEDS ORDERED: FLUTICASONE IH SCH (09:00)
[2018-10-22] MEDS ORDERED: INSULIN DETEMIR SUBCUT SCH (09:00)
[2018-10-22] MEDS ORDERED: Losartan 25 MG Tab PO SCH (09:00)
[2018-10-22] MEDS ORDERED: SALMETEROL IH SCH (09:00)
[2018-10-22] MEDS ORDERED: Potassium Chloride 20 MEQ Tab.ER *PTOM PO SCH ×2 (09:00→14:00)
[2018-10-22] MEDS ORDERED: Azithromycin 500 MG Tab PO SCH (09:00)
[2018-10-22] MEDS ORDERED: Cyanocobalamin (Vitamin B12) 1,000 MCG Tab PO SCH (09:00)
[2018-10-22] MEDS ORDERED: Levothyroxine 100 MCG Tab PO SCH (09:00)
[2018-10-22] MEDS ORDERED: Isosorbide Mononitrate 60 MG Tab.ER PO SCH (09:00)
[2018-10-22] MEDS ORDERED: Folic Acid 1 MG Tab PO SCH (09:00)
[2018-10-22] MEDS ORDERED: Aspirin 81 MG Tab.EC PO SCH (09:00)
[2018-10-22] MEDS ORDERED: atorvaSTATin 40 MG Tab PO SCH (09:00)
--- NOTE | 2018-10-22 09:08 | CR ---
INDICATION: Shortness of breath, thoracentesis 6 weeks prior in left hemithorax. CHEST: PA and lateral views of the chest, 10/21/18, were compared with and 09/01/18 and again revealed a masslike density in the area of the right upper lobe posteriorly - basal. Infiltration is also noted in that area and at the left lung base with a pleural effusion. Findings could be on the basis of malignancy and/ or pneumonia and pleuritis. The right lung appeared relatively normal, as did the right pleural space. The heart did not appear enlarged. The aorta is tortuous with calcification in the arch. Mild degenerative changes are noted in the lower thoracic spine. Compared with 10/15/18, there is very little interval change. No evidence of a pneumothorax was seen. MTDD
[2018-10-22] MEDS: TORSEMIDE 20 MG PO SCH (09:33)
[2018-10-22] MEDS: CLINDAMYCIN HCL 150 MG PO SCH ×2 (09:35→17:06)
[2018-10-22] MEDS ORDERED: Gabapentin 300 MG Cap ONE (12:25)
[2018-10-22] MEDS: Gabapentin 300 MG Cap PO SCH (12:30)
[2018-10-22] MEDS ORDERED: Sodium Chloride 0.9% 1,000 ML IV SCH (18:00)
[2018-10-22 19:01] VITALS: BP 96/44
[2018-10-22] MEDS ORDERED: Potassium Chloride 10% 20 MEQ/15 ML Soln 15 ML UD Cup PO STA (19:03)
--- NOTE | 2018-10-22 19:12 | PCM.DCSUM1 ---
Discharge Summary - Hospital Course Free Text/Narrative:: Patient is a pleasant 78 male with extensive past medical history who presented yesterday sent by his outpatient primary care office for worsening renal function and anemia with symptoms including dyspnea on exertion, severe fatigue , and generalized malaise. Prior to presentation he had been treated for a CHF exacerbation over the past week with increasing diuretics outpatient, improvement of edema and loss of about 10lb weight. THe day prior to admission, he was also started on clindamycin for a left arm cellulitis, which has been improving. EKG showed atrial fibrillation. INR was elevated thought to be due to clindamycin. Patient was admitted overnight for blood transfusion and received 2 units PRBCs. His troponin was mildly elevated but stable throughout admission. He was feeling very good today and hopeful for discharge home, but at supper he suddenly developed a twinge feeling in his chest and was noted to have hypotension. A repeat EKG showed junctional rhythm at about 60 bpm, no ST or other morphology changes. Repeat troponin from the time of the incident is still the same. In discussion with patient and family, decision was made to transfer to [place] for higher level of care. given 250ml bolus with improvement of blood pressure to 90/45 evening K was 3.2, given 20meq PO prior to departure. Hb 9.1 (following blood transfusion, not repeated prior to discharge) Re-affirmed full code status, is primary decision maker in event he becomes unable to consent. and son were updated at patient's bedside prior to departure. Discharge exam: general: alert, oriented, very pleasant, asymptomatic when supine Heart: regular, rate 50-60bpm Lungs: clear with good air movement Periphery: no lower extremity edema Abdomen: soft, nontender, normal bowel sounds Extremity: left arm cellulitis, elbow with swelling but able to freely move Diagnosis: Stroke: No - Discharge Data Discharge Date: 10/22/18 Discharge Disposition: DC/Tfer to Acute Hospital 02 Condition: Fair - Discharge Diagnosis/Problem(s) (1) Junctional cardiac arrhythmia SNOMED Code(s): 894261468 ICD Code: I49.8 - OTHER SPECIFIED CARDIAC ARRHYTHMIAS Status: Acute (2) Acute kidney failure SNOMED Code(s): 64365051 ICD Code: N17.9 - ACUTE KIDNEY FAILURE, UNSPECIFIED Status: Acute (3) Anemia SNOMED Code(s): 735031713 ICD Code: D64.9 - ANEMIA, UNSPECIFIED Status: Acute (4) Anticoagulated SNOMED Code(s): 573230742, 171649403 ICD Code: Z79.01 - CONSULAR OFFICER (CURRENT) USE OF ANTICOAGULANTS Status: Acute (5) Cellulitis SNOMED Code(s): 415171297 ICD Code: L03.90 - CELLULITIS, UNSPECIFIED Status: Acute (6) Chronic renal failure SNOMED Code(s): 90611201 ICD Code: N18.9 - CHRONIC KIDNEY DISEASE, UNSPECIFIED Status: Acute (7) Diabetes mellitus SNOMED Code(s): 18165640 ICD Code: E11.9 - TYPE 2 DIABETES MELLITUS WITHOUT COMPLICATIONS Status: Acute (8) Elevated troponin SNOMED Code(s): 876016773, 292613585, 162881308 ICD Code: R74.8 - ABNORMAL LEVELS OF OTHER SERUM ENZYMES Status: Acute - Discharge Plan *PRESCRIPTION DRUG MONITORING PROGRAM REVIEWED*: Not Applicable *COPY OF PRESCRIPTION DRUG MONITORING REPORT IN PATIENT JANELL: Not Applicable Home Medications: Home Meds Levothyroxine [Synthroid] 100 mcg PO DAILY 10/21/13 [History] Albuterol [Ventolin HFA] 2 puff INH Q6H PRN 07/21/15 [History] Insulin Aspart [NovoLOG] 5 units SUBCUT TIDMEALS 07/21/15 [History] Warfarin [Coumadin] 5 mg PO SUTUTH 07/21/15 [History] Warfarin [Coumadin] 7.5 mg PO MOWEFRSA 07/21/15 [History] Albuterol/Ipratropium [DuoNeb 3.0-0.5 MG/3 ML] 3 ml NEB Q4H PRN 09/18/17 [ History] Colchicine 0.6 mg PO ASDIRECTED PRN 09/18/17 [History] Fluticasone/Salmeterol [Advair 250-50] 1 puff INH BID 09/18/17 [History] Isosorbide Mononitrate [Imdur] 60 mg PO DAILY 09/18/17 [History] atorvaSTATin Calcium [Lipitor] 40 mg PO DAILY 09/18/17 [History] Aspirin [Ecotrin EC] 81 mg PO DAILY 08/28/18 [History] Cyanocobalamin (Vitamin B-12) [B-12] 1,000 mcg PO DAILY 08/28/18 [History] Insulin Detemir [Levemir] 34 unit SUBCUT DAILY 08/28/18 [History] Mirtazapine 7.5 mg PO BEDTIME 08/28/18 [History] Folic Acid 1 mg PO DAILY #100 tablet 09/03/18 [Rx] Gabapentin [Neurontin] 300 mg PO BID #90 cap 09/03/18 [Rx] Torsemide 60 mg PO BID 3 Days #60 tablet 09/03/18 [Rx] Azithromycin 500 mg PO DAILY 10/21/18 [History] Clindamycin HCl [Cleocin] 150 mg PO Q8H 10/21/18 [History] Losartan [Cozaar] 12.5 mg PO DAILY 10/22/18 [History] Nitroglycerin [Nitrostat] 0.4 mg SL Q5M PRN 10/22/18 [History] Potassium Chloride [Klor-Con M20] 20 meq PO DAILY 10/22/18 [History] Forms: ED Department Discharge Referrals: Ranjith Llanes MD [Primary Care Provider] - - Discharge Summary/Plan Comment DC Time >30 min.: Yes Discharge Summary/Plan Comment: transfer to [facility] - Patient Data Vitals - Most Recent: Last Vital Signs Temp 37.1 C 10/22/18 16:41 Pulse 63 10/22/18 18:51 Resp 20 10/22/18 18:51 BP 96/44 L 10/22/18 18:51 Pulse Ox 2 L 10/22/18 18:51 Weight - Most Recent: 98.203 kg I&O - Last 24 hours: Intake & Output 10/22/18 10/22/18 10/22/18 06:59 14:59 22:59 Intake Total 690 500 Balance 690 500 Lab Results - Last 24 hrs: Laboratory Results - last 24 hr 10/21/18 10/22/18 10/22/18 Range/Units 17:35 05:55 05:55 WBC 6.4 (4.5-12.0) X10-3/uL RBC 3.30 L (4.30-5.75) x10(6)uL Hgb 8.5 L (13.5-17.8) g/dL Hct 26.2 L (30.0-51.3) % MCV 79.4 L (80-96) fL MCH 25.9 L (27.7-33.6) pg MCHC 32.6 (32.2-35.4) g/dL RDW 19.7 H (11.5-15.5) % Plt Count 207 (125-369) X10(3)uL MPV 7.8 (7.4-10.4) fL Neut % (Auto) 69.2 (46-82) % Lymph % (Auto) 16.2 (13-37) % Burnett % (Auto) 11.2 (4-12) % Eos % (Auto) 3 (1.0-5.0) % Baso % (Auto) 0 (0-2) % Neut # (Auto) 4.5 (1.6-8.3) # Lymph # (Auto) 1.0 (0.6-5.0) # Burnett # (Auto) 0.7 (0.0-1.3) # Eos # (Auto) 0.2 (0.0-0.8) # Baso # (Auto) 0.0 (0.0-0.2) # PT (8.7-11.1) INR (0.89-1.13) Sodium 136 (135-145) mmol/L Potassium 2.8 L* (3.5-5.3) mmol/L Chloride 97 L (100-110) mmol/L Carbon Dioxide 35 H (21-32) mmol/L BUN 80 H (7-18) mg/dL Creatinine 2.4 H* (0.70-1.30) mg/dL Est Cr Clr Drug Dosing 23.75 mL/min Estimated GFR (MDRD) 26 L (>60) BUN/Creatinine Ratio 33.3 H (9-20) Glucose 172 H D (80-116) mg/dL POC Glucose (80-116) mg/dL Calcium 8.8 (8.6-10.2) mg/dL Troponin I (<0.017-0.056) ng/mL NT-Pro-B Natriuret Pep (<=450) pg/mL Blood Type O POSITIVE Gel Antibody Screen Negative Crossmatch See Detail 10/22/18 10/22/18 10/22/18 Range/Units 05:55 05:55 12:19 WBC (4.5-12.0) X10-3/uL RBC (4.30-5.75) x10(6)uL Hgb (13.5-17.8) g/dL Hct (30.0-51.3) % MCV (80-96) fL MCH (27.7-33.6) pg MCHC (32.2-35.4) g/dL RDW (11.5-15.5) % Plt Count (125-369) X10(3)uL MPV (7.4-10.4) fL Neut % (Auto) (46-82) % Lymph % (Auto) (13-37) % Burnett % (Auto) (4-12) % Eos % (Auto) (1.0-5.0) % Baso % (Auto) (0-2) % Neut # (Auto) (1.6-8.3) # Lymph # (Auto) (0.6-5.0) # Burnett # (Auto) (0.0-1.3) # Eos # (Auto) (0.0-0.8) # Baso # (Auto) (0.0-0.2) # PT 32.3 H (8.7-11.1) INR 3.37 H (0.89-1.13) Sodium (135-145) mmol/L Potassium (3.5-5.3) mmol/L Chloride (100-110) mmol/L Carbon Dioxide (21-32) mmol/L BUN (7-18) mg/dL Creatinine (0.70-1.30) mg/dL Est Cr Clr Drug Dosing mL/min Estimated GFR (MDRD) (>60) BUN/Creatinine Ratio (9-20) Glucose (80-116) mg/dL POC Glucose 202 H (80-116) mg/dL Calcium (8.6-10.2) mg/dL Troponin I 0.097 H* (<0.017-0.056) ng/mL NT-Pro-B Natriuret Pep 3531 H* (<=450) pg/mL Blood Type Gel Antibody Screen Crossmatch 10/22/18 10/22/18 10/22/18 Range/Units 16:08 16:08 16:08 WBC 7.6 (4.5-12.0) X10-3/uL RBC 3.52 L (4.30-5.75) x10(6)uL Hgb 9.1 L (13.5-17.8) g/dL Hct 28.3 L (30.0-51.3) % MCV 80.4 (80-96) fL MCH 25.9 L (27.7-33.6) pg MCHC 32.2 (32.2-35.4) g/dL RDW 19.9 H (11.5-15.5) % Plt Count 241 (125-369) X10(3)uL MPV 7.8 (7.4-10.4) fL Neut % (Auto) 74.2 (46-82) % Lymph % (Auto) 14.4 (13-37) % Burnett % (Auto) 9.1 (4-12) % Eos % (Auto) 2 (1.0-5.0) % Baso % (Auto) 0 (0-2) % Neut # (Auto) 5.6 (1.6-8.3) # Lymph # (Auto) 1.1 (0.6-5.0) # Burnett # (Auto) 0.7 (0.0-1.3) # Eos # (Auto) 0.2 (0.0-0.8) # Baso # (Auto) 0.0 (0.0-0.2) # PT (8.7-11.1) INR (0.89-1.13) Sodium 136 (135-145) mmol/L Potassium 3.2 L (3.5-5.3) mmol/L Chloride 96 L (100-110) mmol/L Carbon Dioxide 31 (21-32) mmol/L BUN 75 H (7-18) mg/dL Creatinine 2.3 H* (0.70-1.30) mg/dL Est Cr Clr Drug Dosing 24.78 mL/min Estimated GFR (MDRD) 27 L (>60) BUN/Creatinine Ratio 32.6 H (9-20) Glucose 194 H (80-116) mg/dL POC Glucose (80-116) mg/dL Calcium 9.0 (8.6-10.2) mg/dL Troponin I 0.085 H* (<0.017-0.056) ng/mL NT-Pro-B Natriuret Pep (<=450) pg/mL Blood Type Gel Antibody Screen Crossmatch 10/22/18 Range/Units 17:53 WBC (4.5-12.0) X10-3/uL RBC (4.30-5.75) x10(6)uL Hgb (13.5-17.8) g/dL Hct (30.0-51.3) % MCV (80-96) fL MCH (27.7-33.6) pg MCHC (32.2-35.4) g/dL RDW (11.5-15.5) % Plt Count (125-369) X10(3)uL MPV (7.4-10.4) fL Neut % (Auto) (46-82) % Lymph % (Auto) (13-37) % Burnett % (Auto) (4-12) % Eos % (Auto) (1.0-5.0) % Baso % (Auto) (0-2) % Neut # (Auto) (1.6-8.3) # Lymph # (Auto) (0.6-5.0) # Burnett # (Auto) (0.0-1.3) # Eos # (Auto) (0.0-0.8) # Baso # (Auto) (0.0-0.2) # PT (8.7-11.1) INR (0.89-1.13) Sodium (135-145) mmol/L Potassium (3.5-5.3) mmol/L Chloride (100-110) mmol/L Carbon Dioxide (21-32) mmol/L BUN (7-18) mg/dL Creatinine (0.70-1.30) mg/dL Est Cr Clr Drug Dosing mL/min Estimated GFR (MDRD) (>60) BUN/Creatinine Ratio (9-20) Glucose (80-116) mg/dL POC Glucose 201 H (80-116) mg/dL Calcium (8.6-10.2) mg/dL Troponin I (<0.017-0.056) ng/mL NT-Pro-B Natriuret Pep (<=450) pg/mL Blood Type Gel Antibody Screen Crossmatch STAR Results - Last 24 hrs: Microbiology 10/22/18 08:21 Stool Occult Blood (STAR) - Final Stool / Feces Med Orders - Current: Current Medications Albuterol (Ventolin Hfa) 0 gm INH Q6H PRN PRN Reason: Dyspnea Last Admin: 10/22/18 08:07 Dose: 2 puff Albuterol/Ipratropium (Duoneb 3.0-0.5 Mg/3 Ml) 3 ml NEB Q4H PRN PRN Reason: Dyspnea Aspirin (Halfprin) 81 mg PO DAILY [facility] Last Admin: 10/22/18 11:40 Dose: 81 mg Atorvastatin Calcium (Lipitor) 40 mg PO DAILY [facility] Last Admin: 10/22/18 11:40 Dose: 40 mg Clindamycin HCl (Cleocin) 150 mg PO Q8H SUE Last Admin: 10/22/18 17:06 Dose: 150 mg Colchicine (Colcrys) 0.6 mg PO ASDIRECTED PRN PRN Reason: ACUTE GOUT Cyanocobalamin (Vitamin B12) 1,000 mcg PO DAILY [facility] Last Admin: 10/22/18 11:41 Dose: 1,000 mcg Folic Acid (Folic Acid) 1 mg PO DAILY [facility] Last Admin: 10/22/18 11:41 Dose: 1 mg Gabapentin (Neurontin) 300 mg PO BID [facility] Last Admin: 10/22/18 12:30 Dose: 300 mg Sodium Chloride (Normal Saline) 250 mls @ 100 mls/hr IV ASDIRECTED [facility] Last Admin: 10/22/18 00:35 Dose: 100 mls/hr Isosorbide Mononitrate (Imdur) 60 mg PO DAILY [facility] Last Admin: 10/22/18 12:33 Dose: 60 mg Levothyroxine Sodium (Synthroid) 100 mcg PO DAILY [facility] Last Admin: 10/22/18 11:40 Dose: 100 mcg Losartan Potassium (Cozaar) 12.5 mg PO DAILY [facility] Last Admin: 10/22/18 11:40 Dose: 12.5 mg Mirtazapine (Remeron) 7.5 mg PO BEDTIME [facility] Last Admin: 10/21/18 22:14 Dose: 7.5 mg Nitroglycerin (Nitrostat) 0.4 mg SL Q5M PRN PRN Reason: Chest Pain Insulin Detemir [ Levemir] Insulin * Ptom 34 unit SUBCUT DAILY [facility] Last Admin: 10/22/18 08:05 Dose: 34 unit Insulin Aspart [ (Novolog] *Ptom) 5 units SUBCUT TIDMEALS [facility] Last Admin: 10/22/18 18:10 Dose: 5 units Fluticasone/Salmeterol [Advair 250-50] 1 PuffPt Own 1 puff INH BID SUE Last Admin: 10/22/18 09:35 Dose: 1 puff Potassium Chloride (Klor-Con M20) 40 meq PO TID SUE Stop: 10/23/18 09:01 Last Admin: 10/22/18 14:28 Dose: 40 meq Potassium Chloride (Klor-Con M20) 20 meq PO ONETIME ONE Stop: 10/22/18 18:48 Potassium Chloride (Potassium Chloride Solution) 20 meq PO ONETIME STA Stop: 10/22/18 19:04 Sodium Chloride (Saline Flush) 10 ml FLUSH ASDIRECTED PRN PRN Reason: Keep Vein Open Last Admin: 10/22/18 04:43 Dose: 10 ml Torsemide (Demadex) 60 mg PO BID [facility] Last Admin: 10/22/18 09:33 Dose: 60 mg Discontinued Medications Furosemide (Lasix) 40 mg IVPUSH ONETIME ONE Stop: 10/22/18 00:31 Last Admin: 10/22/18 00:30 Dose: 40 mg Gabapentin (Neurontin) Confirm Administered Dose 300 mg .ROUTE .STK-MED ONE Stop: 10/22/18 12:26 Last Admin: 10/22/18 14:19 Dose: Not Given Fluticasone/Salmeterol [Advair 250-50] 1 PuffPt Own 1 puff INH BID [facility] Last Admin: 10/21/18 22:15 Dose: 1 puff Fluticasone/Salmeterol [Advair 250-50 Diskus]Pt Own 0 each IH DAILY [facility] Insulin Aspart [ (Novolog] *Ptom) 5 units SUBCUT TIDMEALS [facility] Potassium Chloride (Klor-Con M20) 40 meq PO ONETIME ONE Stop: 10/22/18 06:27 Last Admin: 10/22/18 07:48 Dose: 40 meq
== END 2018-10-22 19:00 ==
LOC: FB.ED 17:04 → FB.MS 19:00
PROVIDERS: ADMIT Family Medicine; ATTEND Family Medicine
DX: I13.0 Hypertensive heart and chronic kidney disease with heart failure and stage 1 through stage 4 chronic kidney disease, or unspecified chronic kidney disease (principal); E11.22 Type 2 diabetes mellitus with diabetic chronic kidney disease; I50.9 Heart failure, unspecified; N18.9 Chronic kidney disease, unspecified; N17.9 Acute kidney failure, unspecified; I49.8 Other specified cardiac arrhythmias; E87.6 Hypokalemia; D64.9 Anemia, unspecified; R74.8 Abnormal levels of other serum enzymes; L03.90 Cellulitis, unspecified; R06.00 Dyspnea, unspecified; Z79.01 Long term (current) use of anticoagulants; Z51.5 Encounter for palliative care; Z79.899 Other long term (current) drug therapy; Z79.4 Long term (current) use of insulin; Z79.82 Long term (current) use of aspirin; Z79.2 Long term (current) use of antibiotics; Z88.8 Allergy status to other drugs, medicaments and biological substances
CPT/HCPCS: 36415; 36430; 71046; 80048; 80053; 82272; 82962; 83735; 83880; 84484; 85025; 85610; 86850; 86900; 86901; 86920; 86922; 93005; 96374; 99284; A9270; G0378; J1940; J7050; P9016

== ENCOUNTER 2018-10-25 10:18 | Emergency (ER) | payer BC, MEDICARE ==
[2018-10-25] MEDS ORDERED: Sodium Chloride 0.9% 10 ML Syringe FLUSH PRN (10:39)
[2018-10-25] MEDS ORDERED: Sodium Chloride 0.9% 1,000 ML IV ONE (10:39)
[2018-10-25] MEDS ORDERED: Acetaminophen 325 MG Tab PO ONE (10:40)
[2018-10-25] MEDS ORDERED: Albuterol/Ipratropium 3.0-0.5 MG/3 ML Neb Soln NEB ONE (10:40)
[2018-10-25] MEDS ORDERED: Dexamethasone 4 MG/ML SDV IVPUSH ONE (10:41)
--- NOTE | 2018-10-25 10:46 | EDM.PDOC ---
ED HPI GENERAL MEDICAL PROBLEM - General Chief Complaint: General Stated Complaint: SOB Time Seen by Provider: 10/25/18 10:43 Source of Information: Reports: Patient History Limitations: Reports: No Limitations - History of Present Illness INITIAL COMMENTS - FREE TEXT/NARRATIVE: Presents with generalized weakness, SOB and N/V/D since last night. Patient was discharged from [facility] yesterday after Colonoscopy and EGD to evaluate anemia. Onset: Today - Related Data Allergies Allergy/AdvReac Type Severity Reaction Status Date / Time prednisone Allergy Respiratory Verified 09/18/17 12:55 Distress Home Meds: Home Meds Levothyroxine [Synthroid] 100 mcg PO DAILY 10/21/13 [History] Albuterol [Ventolin HFA] 2 puff INH Q6H PRN 07/21/15 [History] Insulin Aspart [NovoLOG] 5 units SUBCUT TIDMEALS 07/21/15 [History] Warfarin [Coumadin] 5 mg PO SUTUTH 07/21/15 [History] Warfarin [Coumadin] 7.5 mg PO MOWEFRSA 07/21/15 [History] Albuterol/Ipratropium [DuoNeb 3.0-0.5 MG/3 ML] 3 ml NEB Q4H PRN 09/18/17 [ History] Colchicine 0.6 mg PO ASDIRECTED PRN 09/18/17 [History] Fluticasone/Salmeterol [Advair 250-50] 1 puff INH BID 09/18/17 [History] Isosorbide Mononitrate [Imdur] 60 mg PO DAILY 09/18/17 [History] atorvaSTATin Calcium [Lipitor] 40 mg PO DAILY 09/18/17 [History] Aspirin [Ecotrin EC] 81 mg PO DAILY 08/28/18 [History] Cyanocobalamin (Vitamin B-12) [B-12] 1,000 mcg PO DAILY 08/28/18 [History] Insulin Detemir [Levemir] 34 unit SUBCUT DAILY 08/28/18 [History] Mirtazapine 7.5 mg PO BEDTIME 08/28/18 [History] Folic Acid 1 mg PO DAILY #100 tablet 09/03/18 [Rx] Gabapentin [Neurontin] 300 mg PO BID #90 cap 09/03/18 [Rx] Torsemide 60 mg PO BID 3 Days #60 tablet 09/03/18 [Rx] Azithromycin 500 mg PO DAILY 10/21/18 [History] Clindamycin HCl [Cleocin] 150 mg PO Q8H 10/21/18 [History] Losartan [Cozaar] 12.5 mg PO DAILY 10/22/18 [History] Nitroglycerin [Nitrostat] 0.4 mg SL Q5M PRN 10/22/18 [History] Potassium Chloride [Klor-Con M20] 20 meq PO DAILY 10/22/18 [History] Past Medical History HEENT History: Reports: Cataract, Hard of Hearing, Other (See Below) Other HEENT History: 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 Respiratory History: Reports: Asthma, COPD, Pneumonia, Recurrent, SOB Other Respiratory History: pleural effusion, hx of lung CA 2003 Gastrointestinal History: Reports: Other (See Below) Other Gastrointestinal History: Constipation and diarrhea issues. Genitourinary History: Reports: Renal Disease, Retention, Urinary Other Genitourinary History: hematuria, hyperuricemia, CKD Musculoskeletal History: Reports: Other (See Below) Other Musculoskeletal History: Mild arthritis, especially to fingers. Neurological History: Reports: Other (See Below) Other Neuro History: Episode of major headache last Spring, involved medications and a biopsy. Psychiatric History: Reports: Anxiety Endocrine/Metabolic History: Reports: Diabetes, Type I, Hypothyroidism, Obesity/ BMI 30+ Hematologic History: Reports: Anticoagulation Therapy Other Hematologic History: coagulopathy Oncologic (Cancer) History: Reports: Lung Other Oncologic History: Renal mass. Lung CA 1994. Dermatologic History: Reports: Other (See Below) Other Dermatologic History: Dry skin, easily bruised. - Infectious Disease History Infectious Disease History: Reports: None Other Infectious Disease History: MRSA at one time, ears ?? Uncertain of childhood illnesses. - Past Surgical History HEENT Surgical History: Reports: Cataract Surgery Cardiovascular Surgical History: Reports: Coronary Artery Stent Respiratory Surgical History: Reports: Other (See Below) Social & Family History - Family History Family Medical History: Noncontributory HEENT: Reports: Hearing Impairment, Macular Degeneration : Reports: None Musculoskeletal: Reports: Arthritis, Back pain, Chronic Neurological: Reports: CVA Endocrine/Metabolic: Reports: Diabetes, Type I Dermatologic: Reports: None - Caffeine Use Caffeine Use: Reports: Soda - Living Situation & Occupation Living situation: Reports: Occupation: Retired ED ROS GENERAL - Review of Systems Review Of Systems: ROS reveals no pertinent complaints other than HPI. ED EXAM, GENERAL - Physical Exam Exam: See Below Exam Limited By: No Limitations General Appearance: Alert, WD/WN, No Apparent Distress Ears: Normal External Exam Nose: Normal Inspection Throat/Mouth: No Airway Compromise, Other (oropharynx slightly dry) Head: Atraumatic, Normocephalic Neck: Supple Respiratory/Chest: No Respiratory Distress, Decreased Breath Sounds (left), Wheezing Cardiovascular: Regular Rate, Rhythm, No Murmur GI/Abdominal: Normal Bowel Sounds, Soft, No Distention, Tender (generalized) Back Exam: Full Range of Motion Extremities: Normal Range of Motion Neurological: Alert, Normal Cognition, No Motor/Sensory Deficits Psychiatric: Normal Mood Skin Exam: Warm, Dry, Intact, Other (erythema and warmth left forearm) ED CENTRAL LINE INSERTION - Central Line Insertion Central Line Indication: medication administration Site: femoral (R) Prep: CDC/MBT Guidelines, Sterile Drapes, Chlorhexidine Lumen: triple Gauge: 7Fr Local Anesthesia - Lidocaine (Xylocaine): 1% Plain Local Anesthetic Volume: 2cc Ultrasound guided: No Guidewire and dilator removed intact: Yes Complications: No Secured with suture: Yes Dressing applied: by nurse EKG INTERPRETATION EKG Date: 10/25/18 Time: 11:43 Rhythm: A-Fib Rate (Beats/Min): 90 Comparison: No Change (from 10/22/18) Course - Vital Signs Text/Narrative:: Initial Vitals: T 101.7, BP 84/36, HR 112, Sa02 92% on 6L 02 Last Recorded V/S: Last Vital Signs Temp 37.6 C 10/25/18 13:00 Pulse 90 10/25/18 13:00 Resp 18 10/25/18 13:00 BP 93/46 L 10/25/18 13:00 Pulse Ox 100 10/25/18 13:00 - Orders/Labs/Meds Orders: Active Orders 24 hr Category Date Time Status BIPAP Adult [RT BiPAP/CPAP] [RC] ASDIRECTED Care 10/25/18 12:29 Active EKG Documentation Completion [RC] ASDIRECTED Care 10/25/18 10:23 Active Crum Catheter Insertion [Insert Urinary Catheter] [OM. Care 10/25/18 11:45 Ordered PC] Q24H RT Aerosol Therapy [RC] ASDIRECTED Care 10/25/18 10:41 Active RT Aerosol Therapy [RC] ASDIRECTED Care 10/25/18 11:59 Active Urinary Catheter Assessment [RC] QSHIFT Care 10/25/18 11:40 Active CXR [Chest 1V Frontal] [CR] Stat Exams 10/25/18 10:41 Taken CXR [Chest 1V Frontal] [CR] Stat Exams 10/25/18 12:26 Taken CBC WITH AUTO DIFF [HEME] Stat Lab 10/25/18 10:30 Received CULTURE BLOOD [BC] Urgent Lab 10/25/18 10:30 Received CULTURE BLOOD [BC] Urgent Lab 10/25/18 10:35 Received UA W/MICROSCOPIC [URIN] Stat Lab 10/25/18 10:23 Ordered Norepinephrine [Levophed] 4 mg Med 10/25/18 11:26 Active Dextrose 5% in Water 246 ml IV TITRATE Sodium Chloride 0.9% [Saline Flush] Med 10/25/18 10:39 Active 10 ml FLUSH ASDIRECTED PRN Blood Culture x2 Reflex Set [OM.PC] Urgent Oth 10/25/18 10:23 Ordered Saline Lock Insert [OM.PC] Routine Oth 10/25/18 10:39 Ordered EKG 12 Lead [EK] Stat Ther 10/25/18 10:23 Ordered Medication Orders Norepinephrine Bitartrate 4 mg (/ Dextrose/Water) 250 mls @ 7.5 mls/hr IV TITRATE SEU; Protocol Last Titration: 10/25/18 12:29 Dose: 4 mcg/min, 15 mls/hr Admin: 10/25/18 12:15 Dose: 2 mcg/min, 7.5 mls/hr Sodium Chloride (Saline Flush) 10 ml FLUSH ASDIRECTED PRN PRN Reason: Keep Vein Open Labs: Laboratory Tests 10/25/18 10/25/18 10/25/18 Range/Units 10:30 10:30 10:30 PT 14.8 H (8.7-11.1) INR 1.54 H (0.89-1.13) APTT 25.3 (24.4-33.2) SECONDS D-Dimer, Quantitative (0.0-0.59) mg/LFEU POC VBG pH (7.31-7.41) POC VBG pCO2 (41-51) mmHG POC VBG HCO3 (23-28) mmol/L POC VBG Total CO2 (24-29) mmol/L POC VBG Base Excess (-2-3) mmol/L Sodium 142 (135-145) mmol/L Potassium 3.4 L (3.5-5.3) mmol/L Chloride 107 D (100-110) mmol/L Carbon Dioxide 24 (21-32) mmol/L BUN 59 H D (7-18) mg/dL Creatinine 2.9 H* (0.70-1.30) mg/dL Est Cr Clr Drug Dosing TNP Estimated GFR (MDRD) 21 L (>60) BUN/Creatinine Ratio 20.3 H (9-20) Glucose 129 H (80-116) mg/dL Lactic Acid (0.4-2.2) mmol/L Calcium 8.3 L (8.6-10.2) mg/dL Total Bilirubin 1.6 H (0.1-1.3) mg/dL AST 23 D (5-25) IU/L ALT 15 D (12-36) U/L Alkaline Phosphatase 115 H (56-112) IU/L Troponin I 0.095 H* (<0.017-0.056) ng/mL Total Protein 6.3 (6.0-8.0) g/dL Albumin 2.4 L (3.2-4.6) g/dL Globulin 3.9 g/dL Albumin/Globulin Ratio 0.6 Amylase (25-115) U/L 10/25/18 10/25/18 10/25/18 Range/Units 10:30 10:30 10:30 PT (8.7-11.1) INR (0.89-1.13) APTT (24.4-33.2) SECONDS D-Dimer, Quantitative 1.78 H (0.0-0.59) mg/LFEU POC VBG pH (7.31-7.41) POC VBG pCO2 (41-51) mmHG POC VBG HCO3 (23-28) mmol/L POC VBG Total CO2 (24-29) mmol/L POC VBG Base Excess (-2-3) mmol/L Sodium (135-145) mmol/L Potassium (3.5-5.3) mmol/L Chloride (100-110) mmol/L Carbon Dioxide (21-32) mmol/L BUN (7-18) mg/dL Creatinine (0.70-1.30) mg/dL Est Cr Clr Drug Dosing Estimated GFR (MDRD) (>60) BUN/Creatinine Ratio (9-20) Glucose (80-116) mg/dL Lactic Acid 3.2 H (0.4-2.2) mmol/L Calcium (8.6-10.2) mg/dL Total Bilirubin (0.1-1.3) mg/dL AST (5-25) IU/L ALT (12-36) U/L Alkaline Phosphatase (56-112) IU/L Troponin I (<0.017-0.056) ng/mL Total Protein (6.0-8.0) g/dL Albumin (3.2-4.6) g/dL Globulin g/dL Albumin/Globulin Ratio Amylase 32 (25-115) U/L 10/25/18 Range/Units 12:22 PT (8.7-11.1) INR (0.89-1.13) APTT (24.4-33.2) SECONDS D-Dimer, Quantitative (0.0-0.59) mg/LFEU POC VBG pH 7.38 (7.31-7.41) POC VBG pCO2 42.9 (41-51) mmHG POC VBG HCO3 25.4 (23-28) mmol/L POC VBG Total CO2 27 (24-29) mmol/L POC VBG Base Excess 0 (-2-3) mmol/L Sodium (135-145) mmol/L Potassium (3.5-5.3) mmol/L Chloride (100-110) mmol/L Carbon Dioxide (21-32) mmol/L BUN (7-18) mg/dL Creatinine (0.70-1.30) mg/dL Est Cr Clr Drug Dosing Estimated GFR (MDRD) (>60) BUN/Creatinine Ratio (9-20) Glucose (80-116) mg/dL Lactic Acid (0.4-2.2) mmol/L Calcium (8.6-10.2) mg/dL Total Bilirubin (0.1-1.3) mg/dL AST (5-25) IU/L ALT (12-36) U/L Alkaline Phosphatase (56-112) IU/L Troponin I (<0.017-0.056) ng/mL Total Protein (6.0-8.0) g/dL Albumin (3.2-4.6) g/dL Globulin g/dL Albumin/Globulin Ratio Amylase (25-115) U/L Meds: Medications Generic Name Dose Route Start Last Admin Trade Name Freq PRN Reason Stop Dose Admin Norepinephrine Bitartrate 4 mg 250 mls @ 7.5 mls/hr 10/25/18 11:26 10/25/18 12:29 / Dextrose/Water IV 4 mcg/min TITRATE SUE 15 mls/hr Titration Protocol 2 MCG/MIN Sodium Chloride 10 ml 10/25/18 10:39 Saline Flush FLUSH ASDIRECTED PRN Keep Vein Open Discontinued Medications Generic Name Dose Route Start Last Admin Trade Name Freq PRN Reason Stop Dose Admin Acetaminophen 650 mg 10/25/18 10:40 10/25/18 10:55 Tylenol PO 10/25/18 10:41 650 mg NOW ONE Administration Albuterol 2.5 mg 10/25/18 11:59 10/25/18 12:40 Proventil Neb Soln NEB 10/25/18 12:00 2.5 mg ONETIME ONE Administration Albuterol/Ipratropium 3 ml 10/25/18 10:40 10/25/18 10:44 Duoneb 3.0-0.5 Mg/3 Ml NEB 10/25/18 10:41 3 ml ONETIME ONE Administration Dexamethasone 10 mg 10/25/18 10:41 10/25/18 11:10 Dexamethasone IVPUSH 10/25/18 10:42 10 mg ONETIME ONE Administration Heparin Sodium (Porcine) Confirm 10/25/18 11:10 Heparin Lock Flush 10 Units/Ml Administered 10/25/18 11:11 Dose 150 unit FLUSH .STK-MED ONE Sodium Chloride 1,000 mls @ 999 mls/hr 10/25/18 10:39 10/25/18 10:45 Normal Saline IV 10/25/18 11:39 999 mls/hr .BOLUS ONE Administration Ampicillin Sodium/Sulbactam 100 mls @ 100 mls/hr 10/25/18 11:24 10/25/18 12: 19 Sodium 3 gm/ Sodium Chloride IV 10/25/18 12:23 100 mls/hr ONETIME ONE Administration Levofloxacin/Dextrose 750 mg/ 150 mls @ 100 mls/hr 10/25/18 11:25 10/25/18 11 :56 Premix IV 10/25/18 12:54 100 mls/hr ONETIME ONE Administration Sodium Chloride 1,000 mls @ 100 mls/hr 10/25/18 11:30 Normal Saline IV ASDIRECTED [facility] Ondansetron HCl 4 mg 10/25/18 10:48 10/25/18 10:56 Zofran IVPUSH 10/25/18 10:49 4 mg ONETIME ONE Administration - Radiology Interpretation Free Text/Narrative:: CXR: LLL pneumonia with parapneumonic effusion. - Re-Assessments/Exams Free Text/Narrative Re-Assessment/Exam: 10/25/18 12:53 Increased rhonchi after IVF bolus, Bipap 10/5 initiated. BP 85/36 after 1.7L NS bolus. BP 92/39 on Levophed drip at 4 mcg/min. Sa02 99% on Bipap 10/5, Fi02 40%. Dr. Billings accepts transfer to [facility] ED. Departure - Departure Time of Disposition: 13:15 Disposition: DC/Tfer to Acute Hospital 02 Condition: Critical Clinical Impression: Septic shock, COPD with acute exacerbation LLL pneumonia Qualifiers: Pneumonia type: due to unspecified organism Qualified Code(s): J18.1 - Lobar pneumonia, unspecified organism - Discharge Information *PRESCRIPTION DRUG MONITORING PROGRAM REVIEWED*: No *COPY OF PRESCRIPTION DRUG MONITORING REPORT IN PATIENT JANELL: Not Applicable Referrals: Ranjith Llanes MD [Primary Care Provider] - Forms: ED Department Discharge - My Orders Last 24 Hours: My Active Orders 10/25/18 10:23 EKG Documentation Completion [RC] ASDIRECTED UA W/MICROSCOPIC [URIN] Stat Blood Culture x2 Reflex Set [OM.PC] Urgent EKG 12 Lead [EK] Stat 10/25/18 10:30 CBC WITH AUTO DIFF [HEME] Stat CULTURE BLOOD [BC] Urgent 10/25/18 10:35 CULTURE BLOOD [BC] Urgent 10/25/18 10:39 Sodium Chloride 0.9% [Saline Flush] 10 ml FLUSH ASDIRECTED PRN Saline Lock Insert [OM.PC] Routine 10/25/18 10:41 RT Aerosol Therapy [RC] ASDIRECTED CXR [Chest 1V Frontal] [CR] Stat 10/25/18 11:26 Norepinephrine [Levophed] 4 mg Dextrose 5% in Water 246 ml IV TITRATE 10/25/18 11:40 Urinary Catheter Assessment [RC] QSHIFT 10/25/18 11:45 Crum Catheter Insertion [Insert Urinary Catheter] [OM.PC] Q24H 10/25/18 11:59 RT Aerosol Therapy [RC] ASDIRECTED 10/25/18 12:26 CXR [Chest 1V Frontal] [CR] Stat 10/25/18 12:29 BIPAP Adult [RT BiPAP/CPAP] [RC] ASDIRECTED - Assessment/Plan Last 24 Hours: My Active Orders 10/25/18 10:23 EKG Documentation Completion [RC] ASDIRECTED UA W/MICROSCOPIC [URIN] Stat Blood Culture x2 Reflex Set [OM.PC] Urgent EKG 12 Lead [EK] Stat 10/25/18 10:30 CBC WITH AUTO DIFF [HEME] Stat CULTURE BLOOD [BC] Urgent 10/25/18 10:35 CULTURE BLOOD [BC] Urgent 10/25/18 10:39 Sodium Chloride 0.9% [Saline Flush] 10 ml FLUSH ASDIRECTED PRN Saline Lock Insert [OM.PC] Routine 10/25/18 10:41 RT Aerosol Therapy [RC] ASDIRECTED CXR [Chest 1V Frontal] [CR] Stat 10/25/18 11:26 Norepinephrine [Levophed] 4 mg Dextrose 5% in Water 246 ml IV TITRATE 10/25/18 11:40 Urinary Catheter Assessment [RC] QSHIFT 10/25/18 11:45 Crum Catheter Insertion [Insert Urinary Catheter] [OM.PC] Q24H 10/25/18 11:59 RT Aerosol Therapy [RC] ASDIRECTED 10/25/18 12:26 CXR [Chest 1V Frontal] [CR] Stat 10/25/18 12:29 BIPAP Adult [RT BiPAP/CPAP] [RC] ASDIRECTED
[2018-10-25] MEDS ORDERED: Ondansetron 4 MG/2 ML SDV IVPUSH ONE (10:48)
[2018-10-25] MEDS ORDERED: Heparin Sodium 10 Units/ML 5 ML Syringe FLUSH PRN (11:20)
[2018-10-25] MEDS: Heparin Sodium 10 Units/ML 5 ML Syringe FLUSH ONE ×2 (11:20→18:11)
[2018-10-25] MEDS ORDERED: Ampicillin/Sulbactam Na 3 GM in Sodium Chloride 0.9% 100 ML IV ONE (11:24)
[2018-10-25] MEDS ORDERED: Levofloxacin/Dextrose 5%-Water 750 MG in Premix Bag 1 BAG IV ONE (11:25)
[2018-10-25] MEDS ORDERED: Norepinephrine 4 MG in Dextrose 5% in Water 246 ML IV SCH ×2 (11:26)
[2018-10-25] MEDS ORDERED: Sodium Chloride 0.9% 1,000 ML IV SCH (11:30)
[2018-10-25] MEDS ORDERED: Albuterol 0.083% 2.5 MG/3 ML Neb Soln NEB ONE (11:59)
[2018-10-25 13:14] VITALS: BP 93/46
== END 2018-10-25 13:57 ==
LOC: FB.ED 10:18
DX: A41.9 Sepsis, unspecified organism (principal); R65.21 Severe sepsis with septic shock; J18.1 Lobar pneumonia, unspecified organism; J44.1 Chronic obstructive pulmonary disease with (acute) exacerbation; I11.0 Hypertensive heart disease with heart failure; I50.9 Heart failure, unspecified; E10.22 Type 1 diabetes mellitus with diabetic chronic kidney disease; E03.9 Hypothyroidism, unspecified; F41.9 Anxiety disorder, unspecified; I48.91 Unspecified atrial fibrillation; Z79.01 Long term (current) use of anticoagulants; I25.2 Old myocardial infarction; E78.00 Pure hypercholesterolemia, unspecified; Z98.2 Presence of cerebrospinal fluid drainage device; Z79.899 Other long term (current) drug therapy; Z88.8 Allergy status to other drugs, medicaments and biological substances
CPT/HCPCS: 36415; 36556; 51702; 71045; 80053; 82150; 82803; 83605; 84484; 85025; 85379; 85610; 85730; 87040; 93005; 94640; 94660; 96361; 96365; 96367; 96368; 96375; 99285; A9270; J0295; J1100; J1642; J1956; J2405; J7030; J7060; J7620-GY

== ENCOUNTER 2018-11-03 06:50 | Emergency (ER) | payer BC, MEDICARE ==
--- NOTE | 2018-11-03 07:18 | EDM.PDOC ---
ED HPI GENERAL MEDICAL PROBLEM - General Chief Complaint: General Stated Complaint: FALL Time Seen by Provider: 11/03/18 07:12 Source of Information: Reports: Patient History Limitations: Reports: No Limitations - History of Present Illness INITIAL COMMENTS - FREE TEXT/NARRATIVE: 78-year-old male who presents to the emergency department today after collapsing at home when he got up from bed this morning at 5:40 AM. He reports that he was weak all over and just collapsed. He did not have a loss of consciousness. He landed on his buttock and back and is not sure if he hit his head. He was just discharged from the hospital in [place] on 10/30/2018 after respiratory failure and hypotension and reports that he felt pretty good when he was discharged. Since that time he reports that he has been getting progressively more weak and reports that particularly since Saturday night until today he has had much more weakness and needed more help to get around. No shortness of breath. He has had a persistent cough since the previous admission. No fevers or chills. No nausea or vomiting. He has been eating okay. He has pain in his left thigh which is a chronic pain that has been present for quite some time. He rates that pain as a 5/10 and it is a sore pain that is worse with palpation. He does have bruising all over of various ages and he also scraped his left arm causing some skin tears this morning from the fall. He denies any neck or back pain. He has no chest pain. His O2 saturation was 88 % on room air and he was placed on 2 L/m via nasal cannula this morning upon arrival with improvement in his O2 saturation. There are no other associated signs or symptoms. There are no other modifying factors. Onset: Today (Fall/collapse occurred this morning at 5:40 AM) Duration: Constant Location: Reports: Lower Extremity, Left (Chronic) Quality: Reports: Ache (Sore) Severity: Mild (to moderate) Improves with: Reports: Rest, Other (Lying flat) Worsens with: Reports: Other (Sitting up or trying to stand), Movement Context: Reports: Other (As above) Associated Symptoms: Reports: Cough, Malaise, Weakness Treatments DEMAND PLANNING MANAGER: Reports: Other (see below) (Nothing) Left upper thigh Pain Score (Numeric/FACES): 5 - Related Data Allergies Allergy/AdvReac Type Severity Reaction Status Date / Time prednisone Allergy Respiratory Verified 11/03/18 07:30 Distress Home Meds: Home Meds Levothyroxine [Synthroid] 100 mcg PO DAILY 10/21/13 [History] Albuterol [Ventolin HFA] 2 puff INH Q6H PRN 07/21/15 [History] Insulin Aspart [NovoLOG] 5 units SUBCUT TIDMEALS 07/21/15 [History] Warfarin [Coumadin] 5 mg PO SUTUTH 07/21/15 [History] Warfarin [Coumadin] 7.5 mg PO MOWEFRSA 07/21/15 [History] Albuterol/Ipratropium [DuoNeb 3.0-0.5 MG/3 ML] 3 ml NEB Q4H PRN 09/18/17 [ History] Colchicine 0.6 mg PO ASDIRECTED PRN 09/18/17 [History] Isosorbide Mononitrate [Imdur] 60 mg PO DAILY 09/18/17 [History] atorvaSTATin Calcium [Lipitor] 40 mg PO DAILY 09/18/17 [History] Aspirin [Ecotrin EC] 81 mg PO DAILY 08/28/18 [History] Cyanocobalamin (Vitamin B-12) [B-12] 1,000 mcg PO DAILY 08/28/18 [History] Insulin Detemir [Levemir] 34 unit SUBCUT DAILY 08/28/18 [History] Mirtazapine 7.5 mg PO BEDTIME 08/28/18 [History] Folic Acid 1 mg PO DAILY #100 tablet 09/03/18 [Rx] Gabapentin [Neurontin] 300 mg PO BID #90 cap 09/03/18 [Rx] Torsemide 60 mg PO BID 3 Days #60 tablet 09/03/18 [Rx] Nitroglycerin [Nitrostat] 0.4 mg SL Q5M PRN 10/22/18 [History] Potassium Chloride [Klor-Con M20] 20 meq PO DAILY 10/22/18 [History] Ferrous Sulfate 325 mg DAILY 11/03/18 [History] Fluticasone/Salmeterol [Advair 250-50 Diskus] 1 puff BID 11/03/18 [History] Magnesium Chloride [Mag Delay] 64 mg PO DAILY 11/03/18 [History] metOLazone [Metolazone] 2.5 mg Q48H 11/03/18 [History] Past Medical History HEENT History: Reports: Cataract, Hard of Hearing, Other (See Below) Other HEENT History: 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 Cardiovascular History: Reports: Afib, CAD, Heart Failure, High Cholesterol, Hypertension, Stents Other Cardiovascular History: Non-stemi RI. Respiratory History: Reports: Asthma, COPD, Pneumonia, Recurrent, SOB Other Respiratory History: pleural effusion, hx of lung CA 2003 Gastrointestinal History: Reports: Other (See Below) Other Gastrointestinal History: Constipation and diarrhea issues. Genitourinary History: Reports: Renal Disease, Retention, Urinary Other Genitourinary History: hematuria, hyperuricemia, CKD Musculoskeletal History: Reports: Arthritis Neurological History: Reports: Other (See Below) Other Neuro History: Episode of major headache last Spring, involved medications and a biopsy. Psychiatric History: Reports: Anxiety Endocrine/Metabolic History: Reports: Diabetes, Type II, Hypothyroidism, Obesity /BMI 30+ Hematologic History: Reports: Anticoagulation Therapy (On Coumadin) Oncologic (Cancer) History: Reports: Lung Other Oncologic History: Renal mass. Lung CA 1994. - Infectious Disease History Other Infectious Disease History: MRSA at one time, ears ?? Uncertain of childhood illnesses. - Past Surgical History Head Surgeries/Procedures: Reports: None HEENT Surgical History: Reports: Cataract Surgery Cardiovascular Surgical History: Reports: Coronary Artery Stent Social & Family History - Tobacco Use Smoking Status *Q: Former Smoker Used Tobacco, but Quit: Yes Month/Year Tobacco Last Used: 1993 - Caffeine Use Caffeine Use: Reports: Soda - Alcohol Use Alcohol Use History: Yes Alcohol Use Frequency: Rarely Alcohol Use Comment: Maybe one beer a month. - Living Situation & Occupation Living situation: Reports: Occupation: Retired Social History Comment: Lives at home with his . His is here with him. ED ROS GENERAL - Review of Systems Review Of Systems: See Below Constitutional: Reports: Malaise, Weakness HEENT: Reports: Hearing Loss (Chronic) Respiratory: Reports: No Symptoms Cardiovascular: Reports: No Symptoms Endocrine: Reports: No Symptoms GI/Abdominal: Reports: No Symptoms : Reports: No Symptoms Musculoskeletal: Reports: Other (Left thigh pain, chronic) Skin: Reports: Wound (Skin tears on left arm) Neurological: Reports: No Symptoms Psychiatric: Reports: No Symptoms Hematologic/Lymphatic: Reports: Easy Bleeding, Easy Bruising Immunologic: Reports: No Symptoms ED EXAM, GENERAL - Physical Exam Exam: See Below Exam Limited By: No Limitations General Appearance: Alert, WD/WN, No Apparent Distress Eye Exam: Right Eye: EOMI, Normal Inspection, Left Eye: Other (Left eye blind) Ears: Normal External Exam Ear Exam: Bilateral Ear: Auricle Normal Nose: Normal Inspection, Normal Mucosa, No Blood Throat/Mouth: Normal Voice, No Airway Compromise, Other (Somewhat dry mucous membranes) Head: Atraumatic (No evidence of trauma), Normocephalic Neck: Normal Inspection, Supple, Non-Tender, Full Range of Motion, Other ( Patient's body habitus precludes accurate assessment of JVD.) Respiratory/Chest: No Respiratory Distress, No Accessory Muscle Use, Other ( Breath sounds are distant but seems somewhat decreased on the left versus right) Cardiovascular: Normal Peripheral Pulses, Regular Rate, Rhythm, No Murmur Peripheral Pulses: 2+: Radial (L), Radial (R), Dorsalis Pedis (L), Dorsalis Pedis (R) GI/Abdominal: Normal Bowel Sounds, Soft, Non-Tender, No Mass, Other (Bruising on anterior abdominal wall that is diffuse.) Back Exam: Normal Inspection. No: Paraspinal Tenderness, Vertebral Tenderness Extremities: Normal Range of Motion, Non-Tender, Normal Capillary Refill, Pedal Edema (Trace to 1+ bilaterally) Neurological: Alert, Oriented, CN II-XII Intact, Normal Cognition, No Motor/ Sensory Deficits Skin Exam: Warm, Dry, Intact, Ecchymosis (Scattered throughout), Wound/Incision (Skin tears on left forearm and left elbow area) Lymphatic: No Adenopathy EKG INTERPRETATION EKG Date: 11/03/18 Time: 07:32 Rhythm: NSR [place]: LAD-Left [place] Deviation P-Wave: Present QRS: RBBB (And left anterior fascicular block) ST-T: Other (Diffuse nonspecific ST-T changes) QT: Prolonged Comparison: No Change (No real change from EKG performed on 10/25/2018.) Course - Vital Signs Last Recorded V/S: Last Vital Signs Temp 36.4 C 11/03/18 07:05 Pulse 71 11/03/18 08:40 Resp 20 11/03/18 08:40 BP 106/48 L 11/03/18 08:40 Pulse Ox 98 11/03/18 08:40 - Orders/Labs/Meds Orders: Active Orders 24 hr Category Date Time Status EKG Documentation Completion [RC] ASDIRECTED Care 11/03/18 07:33 Active Oxygen Therapy Adult [Oxygen Therapy, ED] [RC] Care 11/03/18 06:58 Active ASDIRECTED Chest 1V Frontal [CR] Stat Exams 11/03/18 07:32 Taken Head wo Cont [CT] Stat Exams 11/03/18 07:34 Taken CULTURE BLOOD [BC] Urgent Lab 11/03/18 07:15 Received CULTURE BLOOD [BC] Urgent Lab 11/03/18 07:55 Received ISTAT G3,VENOUS [POC] Routine Lab 11/03/18 08:26 Results Levofloxacin/Dextrose 5%-Water [Levaquin in D5W 500 MG/ Med 11/03/18 08:46 Ordered 100 ML] 500 mg Premix Bag 1 bag IV ONETIME Sodium Chloride 0.9% [Normal Saline] 1,000 ml Med 11/03/18 07:45 Active IV ASDIRECTED Sodium Chloride 0.9% [Saline Flush] Med 11/03/18 07:32 Active 10 ml FLUSH ASDIRECTED PRN Blood Culture x2 Reflex Set [OM.PC] Urgent Oth 11/03/18 07:34 Ordered Peripheral IV Insertion Adult [OM.PC] Routine Oth 11/03/18 07:32 Ordered EKG 12 Lead [EK] Routine Ther 11/03/18 07:32 Ordered Medication Orders Sodium Chloride (Normal Saline) 1,000 mls @ 999 mls/hr IV ASDIRECTED [facility] Last Admin: 11/03/18 07:42 Dose: 999 mls/hr Levofloxacin/Dextrose 500 mg/ (Premix) 100 mls @ 100 mls/hr IV ONETIME ONE Stop: 11/03/18 09:45 Sodium Chloride (Saline Flush) 10 ml FLUSH ASDIRECTED PRN PRN Reason: Keep Vein Open Last Admin: 11/03/18 07:42 Dose: 10 ml Labs: Laboratory Tests 11/03/18 11/03/18 11/03/18 Range/Units 07:15 07:15 07:15 WBC 16.3 H (4.5-12.0) X10-3/uL RBC 3.46 L (4.30-5.75) x10(6)uL Hgb 8.8 L (13.5-17.8) g/dL Hct 26.8 L (30.0-51.3) % MCV 77.5 L (80-96) fL MCH 25.5 L (27.7-33.6) pg MCHC 32.8 (32.2-35.4) g/dL RDW 19.9 H (11.5-15.5) % Plt Count 335 (125-369) X10(3)uL MPV 7.8 (7.4-10.4) fL Add Manual Diff Yes Neutrophils % (Manual) 95 H (46-82) % Lymphocytes % (Manual) 4 L (13-37) % Monocytes % (Manual) 1 L (4-12) % Anisocytosis Moderate H Microcytosis Few PT 18.0 H (8.7-11.1) INR 1.87 H (0.89-1.13) POC VBG pH (7.31-7.41) POC VBG pCO2 (41-51) mmHG POC VBG HCO3 (23-28) mmol/L POC VBG Total CO2 (24-29) mmol/L POC VBG Base Excess (-2-3) mmol/L Sodium 132 L D (135-145) mmol/L Potassium 2.9 L (3.5-5.3) mmol/L Chloride 89 L* D (100-110) mmol/L Carbon Dioxide 32 (21-32) mmol/L BUN 102 H D (7-18) mg/dL Creatinine 2.8 H* (0.70-1.30) mg/dL Est Cr Clr Drug Dosing 20.36 mL/min Estimated GFR (MDRD) 22 L (>60) BUN/Creatinine Ratio 36.4 H (9-20) Glucose 146 H (80-116) mg/dL Lactic Acid (0.4-2.2) mmol/L Calcium 8.8 (8.6-10.2) mg/dL Total Bilirubin 0.9 (0.1-1.3) mg/dL AST 22 (5-25) IU/L ALT 25 D (12-36) U/L Alkaline Phosphatase 135 H (56-112) IU/L Troponin I (<0.017-0.056) ng/mL C-Reactive Protein (0.5-0.9) mg/dL NT-Pro-B Natriuret Pep (<=450) pg/mL Total Protein 6.9 (6.0-8.0) g/dL Albumin 2.8 L (3.2-4.6) g/dL Globulin 4.1 g/dL Albumin/Globulin Ratio 0.7 11/03/18 11/03/18 11/03/18 Range/Units 07:15 07:15 07:55 WBC (4.5-12.0) X10-3/uL RBC (4.30-5.75) x10(6)uL Hgb (13.5-17.8) g/dL Hct (30.0-51.3) % MCV (80-96) fL MCH (27.7-33.6) pg MCHC (32.2-35.4) g/dL RDW (11.5-15.5) % Plt Count (125-369) X10(3)uL MPV (7.4-10.4) fL Add Manual Diff Neutrophils % (Manual) (46-82) % Lymphocytes % (Manual) (13-37) % Monocytes % (Manual) (4-12) % Anisocytosis Microcytosis PT (8.7-11.1) INR (0.89-1.13) POC VBG pH 7.38 (7.31-7.41) POC VBG pCO2 57.0 H (41-51) mmHG POC VBG HCO3 34.1 H (23-28) mmol/L POC VBG Total CO2 36 H (24-29) mmol/L POC VBG Base Excess 9 H (-2-3) mmol/L Sodium (135-145) mmol/L Potassium (3.5-5.3) mmol/L Chloride (100-110) mmol/L Carbon Dioxide (21-32) mmol/L BUN (7-18) mg/dL Creatinine (0.70-1.30) mg/dL Est Cr Clr Drug Dosing mL/min Estimated GFR (MDRD) (>60) BUN/Creatinine Ratio (9-20) Glucose (80-116) mg/dL Lactic Acid 2.9 H (0.4-2.2) mmol/L Calcium (8.6-10.2) mg/dL Total Bilirubin (0.1-1.3) mg/dL AST (5-25) IU/L ALT (12-36) U/L Alkaline Phosphatase (56-112) IU/L Troponin I 0.128 H* (<0.017-0.056) ng/mL C-Reactive Protein 5.0 H* (0.5-0.9) mg/dL NT-Pro-B Natriuret Pep 4063 H* (<=450) pg/mL Total Protein (6.0-8.0) g/dL Albumin (3.2-4.6) g/dL Globulin g/dL Albumin/Globulin Ratio 11/03/18 Range/Units 08:26 WBC (4.5-12.0) X10-3/uL RBC (4.30-5.75) x10(6)uL Hgb (13.5-17.8) g/dL Hct (30.0-51.3) % MCV (80-96) fL MCH (27.7-33.6) pg MCHC (32.2-35.4) g/dL RDW (11.5-15.5) % Plt Count (125-369) X10(3)uL MPV (7.4-10.4) fL Add Manual Diff Neutrophils % (Manual) (46-82) % Lymphocytes % (Manual) (13-37) % Monocytes % (Manual) (4-12) % Anisocytosis Microcytosis PT (8.7-11.1) INR (0.89-1.13) POC VBG pH 7.38 (7.31-7.41) POC VBG pCO2 57.0 H (41-51) mmHG POC VBG HCO3 (23-28) mmol/L POC VBG Total CO2 36 H (24-29) mmol/L POC VBG Base Excess 9 H (-2-3) mmol/L Sodium (135-145) mmol/L Potassium (3.5-5.3) mmol/L Chloride (100-110) mmol/L Carbon Dioxide (21-32) mmol/L BUN (7-18) mg/dL Creatinine (0.70-1.30) mg/dL Est Cr Clr Drug Dosing mL/min Estimated GFR (MDRD) (>60) BUN/Creatinine Ratio (9-20) Glucose (80-116) mg/dL Lactic Acid (0.4-2.2) mmol/L Calcium (8.6-10.2) mg/dL Total Bilirubin (0.1-1.3) mg/dL AST (5-25) IU/L ALT (12-36) U/L Alkaline Phosphatase (56-112) IU/L Troponin I (<0.017-0.056) ng/mL C-Reactive Protein (0.5-0.9) mg/dL NT-Pro-B Natriuret Pep (<=450) pg/mL Total Protein (6.0-8.0) g/dL Albumin (3.2-4.6) g/dL Globulin g/dL Albumin/Globulin Ratio Meds: Medications Generic Name Dose Route Start Last Admin Trade Name Freq PRN Reason Stop Dose Admin Sodium Chloride 1,000 mls @ 999 mls/hr 11/03/18 07:45 11/03/18 07:42 Normal Saline IV 999 mls/hr ASDIRECTED SUE Administration Levofloxacin/Dextrose 500 mg/ 100 mls @ 100 mls/hr 11/03/18 08:46 Premix IV 11/03/18 09:45 ONETIME ONE Sodium Chloride 10 ml 11/03/18 07:32 11/03/18 07:42 Saline Flush FLUSH 10 ml ASDIRECTED PRN Administration Keep Vein Open Discontinued Medications Generic Name Dose Route Start Last Admin Trade Name Freq PRN Reason Stop Dose Admin Dexamethasone 8 mg 11/03/18 08:46 Dexamethasone IVPUSH 11/03/18 08:47 ONETIME ONE Potassium Chloride 40 meq 11/03/18 08:48 Potassium Chloride Solution PO 11/03/18 08:49 ONETIME ONE - Radiology Interpretation Free Text/Narrative:: Portable chest x-ray shows persistent but somewhat improved left-sided consolidation and effusion. CT scan of the head shows no bleeding or fracture. - Re-Assessments/Exams Free Text/Narrative Re-Assessment/Exam: 11/03/18 08:48: Patient's hemoglobin is essentially unchanged. His creatinine is 2.9 which is about where it has been. His potassium is still low at 2.9. His troponin is elevated 0.128. His BNP is elevated and his CRP is elevated. His lactic acid is 2.9. His chest x-ray shows persisting pneumonia in the left lung and he is requiring oxygen. He was hypotensive to the 80 systolic range upon arrival but with a 250 bolus and with time, his blood pressures in the 100 systolic range. The pleural effusion on the left associated with his recent infection is concerning for a possible infected effusion or empyema. The patient will be given Levaquin 500 milligrams IV (blood cultures 2 have been obtained) and the patient will be given potassium 40 mEq by mouth. The patient will need admission and he will need cares potentially not available at [facility] [place]. Therefore the patient will need to be transferred to a facility with these specially services available. I discussed this with the patient and with his and they would want me to discuss his case with the doctors at [facility] in [place]. 11/03/18 09:06: I discussed the patient's case with Dr. Esparza, ED physician at [facility] in [place], and he has agreed to accept the patient in transfer. The patient will be transferred via ALS ambulance to [facility] for direct admission. The patient and the patient's are in agreement with the plans for transfer. Departure - Departure Time of Disposition: 09:15 Disposition: DC/Tfer to [facility] 02 Condition: Fair (Guarded) Clinical Impression: Persistent pneumonia, Transient hypotension, Pleural effusion, left, Hypokalemia, Chronic renal insufficiency, stage IV (severe), Elevated troponin I level Respiratory failure with hypoxia and hypercapnia Qualifiers: Chronicity: acute on chronic Qualified Code(s): J96.21 - Acute and chronic respiratory failure with hypoxia CHF (congestive heart failure) Qualifiers: Heart failure type: unspecified Heart failure chronicity: acute on chronic Qualified Code(s): I50.9 - Heart failure, unspecified Anemia Qualifiers: Anemia type: unspecified type Qualified Code(s): D64.9 - Anemia, unspecified - Discharge Information Referrals: Ranjith Llanes MD [Primary Care Provider] - Forms: ED Department Discharge - My Orders Last 24 Hours: My Active Orders 11/03/18 06:58 Oxygen Therapy Adult [Oxygen Therapy, ED] [RC] ASDIRECTED 11/03/18 07:15 CULTURE BLOOD [BC] Urgent 11/03/18 07:32 Chest 1V Frontal [CR] Stat Sodium Chloride 0.9% [Saline Flush] 10 ml FLUSH ASDIRECTED PRN Peripheral IV Insertion Adult [OM.PC] Routine EKG 12 Lead [EK] Routine 11/03/18 07:33 EKG Documentation Completion [RC] ASDIRECTED 11/03/18 07:34 Head wo Cont [CT] Stat Blood Culture x2 Reflex Set [OM.PC] Urgent 11/03/18 07:45 Sodium Chloride 0.9% [Normal Saline] 1,000 ml IV ASDIRECTED 11/03/18 07:55 CULTURE BLOOD [BC] Urgent 11/03/18 08:26 ISTAT G3,VENOUS [POC] Routine 11/03/18 08:46 Levofloxacin/Dextrose 5%-Water [Levaquin in D5W 500 MG/100 ML] 500 mg Premix Bag 1 bag IV ONETIME - Assessment/Plan Last 24 Hours: My Active Orders 11/03/18 06:58 Oxygen Therapy Adult [Oxygen Therapy, ED] [RC] ASDIRECTED 11/03/18 07:15 CULTURE BLOOD [BC] Urgent 11/03/18 07:32 Chest 1V Frontal [CR] Stat Sodium Chloride 0.9% [Saline Flush] 10 ml FLUSH ASDIRECTED PRN Peripheral IV Insertion Adult [OM.PC] Routine EKG 12 Lead [EK] Routine 11/03/18 07:33 EKG Documentation Completion [RC] ASDIRECTED 11/03/18 07:34 Head wo Cont [CT] Stat Blood Culture x2 Reflex Set [OM.PC] Urgent 11/03/18 07:45 Sodium Chloride 0.9% [Normal Saline] 1,000 ml IV ASDIRECTED 11/03/18 07:55 CULTURE BLOOD [BC] Urgent 11/03/18 08:26 ISTAT G3,VENOUS [POC] Routine 11/03/18 08:46 Levofloxacin/Dextrose 5%-Water [Levaquin in D5W 500 MG/100 ML] 500 mg Premix Bag 1 bag IV ONETIME
[2018-11-03] MEDS: Sodium Chloride 0.9% 1,000 ML IV SCH (07:42)
[2018-11-03] MEDS: Sodium Chloride 0.9% 10 ML Syringe FLUSH PRN (07:42)
[2018-11-03] MEDS: Potassium Chloride 10% 20 MEQ/15 ML Soln 15 ML UD Cup PO ONE (09:35)
[2018-11-03] MEDS: Dexamethasone 4 MG/ML SDV IVPUSH ONE (09:38)
[2018-11-03] MEDS: Levofloxacin/Dextrose 5%-Water 500 MG in Premix Bag 1 BAG IV ONE (09:42)
[2018-11-03 09:52] VITALS: BP 115/46
== END 2018-11-03 10:12 ==
LOC: FB.ED 06:50
DX: S51.012A Laceration without foreign body of left elbow, initial encounter (principal); E87.6 Hypokalemia; E11.22 Type 2 diabetes mellitus with diabetic chronic kidney disease; I13.0 Hypertensive heart and chronic kidney disease with heart failure and stage 1 through stage 4 chronic kidney disease, or unspecified chronic kidney disease; N18.4 Chronic kidney disease, stage 4 (severe); I50.9 Heart failure, unspecified; D63.1 Anemia in chronic kidney disease; J90 Pleural effusion, not elsewhere classified; I95.9 Hypotension, unspecified; J18.9 Pneumonia, unspecified organism; J96.22 Acute and chronic respiratory failure with hypercapnia; J96.21 Acute and chronic respiratory failure with hypoxia; R79.89 Other specified abnormal findings of blood chemistry; Z88.8 Allergy status to other drugs, medicaments and biological substances; Z79.82 Long term (current) use of aspirin; Z79.4 Long term (current) use of insulin; Z79.01 Long term (current) use of anticoagulants; Z79.899 Other long term (current) drug therapy; I25.10 Atherosclerotic heart disease of native coronary artery without angina pectoris; I48.91 Unspecified atrial fibrillation; J44.9 Chronic obstructive pulmonary disease, unspecified; I25.2 Old myocardial infarction; M19.90 Unspecified osteoarthritis, unspecified site; F41.9 Anxiety disorder, unspecified; E03.9 Hypothyroidism, unspecified; E66.9 Obesity, unspecified; Z68.31 Body mass index [BMI] 31.0-31.9, adult; Z87.891 Personal history of nicotine dependence; W19.XXXA Unspecified fall, initial encounter
CPT/HCPCS: 36415; 70450; 71045; 80053; 81001; 82803; 83605; 83880; 84484; 85025; 85610; 86140; 87040; 93005; 96361; 96365; 96375; 99285; A9270; J1100; J1956; J7030

== ENCOUNTER 2019-02-17 09:42 | Inpatient (IN) | payer BC, MEDICARE ==
[2019-02-17] MEDS: Sodium Chloride 0.9% 10 ML Syringe FLUSH PRN ×3 (09:52→20:18)
[2019-02-17] MEDS ORDERED: Albuterol/Ipratropium 3.0-0.5 MG/3 ML Neb Soln NEB ONE (09:57)
[2019-02-17] MEDS ORDERED: Metolazone 2.5 MG Tab PO ONE (10:39)
[2019-02-17] MEDS ORDERED: Furosemide 40 MG/4 ML VIAL IVPUSH ONE (10:39)
--- NOTE | 2019-02-17 11:35 | EDM.PDOC ---
ED HPI GENERAL MEDICAL PROBLEM - General Chief Complaint: Respiratory Problem Stated Complaint: TROUBLE BREATHING,CHEST PAIN Time Seen by Provider: 02/17/19 10:00 Source of Information: Reports: Patient History Limitations: Reports: No Limitations - History of Present Illness INITIAL COMMENTS - FREE TEXT/NARRATIVE: Patient presented to the ED because of dyspnea and cough for the past week. The coughing is mostly non-productive,denies any chest pain, edema or recent weight gain. There is no associated fever or chills. He was seen in the clinic twice for the past week, and he was prescribed and unknown antibiotic last week and yesterday was started on cefdinir. Chest Pain Score (Numeric/FACES): 6 - Related Data Allergies Allergy/AdvReac Type Severity Reaction Status Date / Time prednisone Allergy Respiratory Verified 02/17/19 09:53 Distress Home Meds: Home Meds Levothyroxine [Synthroid] 100 mcg PO DAILY 10/21/13 [History] Albuterol [Ventolin HFA] 2 puff INH Q6H PRN 07/21/15 [History] Albuterol/Ipratropium [DuoNeb 3.0-0.5 MG/3 ML] 3 ml NEB Q4H PRN 09/18/17 [ History] Colchicine 0.6 mg PO ASDIRECTED PRN 09/18/17 [History] Isosorbide Mononitrate [Imdur] 60 mg PO DAILY 09/18/17 [History] atorvaSTATin Calcium [Lipitor] 40 mg PO DAILY 09/18/17 [History] Aspirin [Ecotrin EC] 81 mg PO DAILY 08/28/18 [History] Cyanocobalamin (Vitamin B-12) [B-12] 1,000 mcg PO DAILY 08/28/18 [History] Insulin Detemir [Levemir] 30 unit SUBCUT DAILY 08/28/18 [History] Mirtazapine 7.5 mg PO BEDTIME 08/28/18 [History] Gabapentin [Neurontin] 300 mg PO BID #90 cap 09/03/18 [Rx] Nitroglycerin [Nitrostat] 0.4 mg SL Q5M PRN 10/22/18 [History] Potassium Chloride [Klor-Con M20] 20 meq PO DAILY 10/22/18 [History] Ferrous Sulfate 325 mg DAILY 11/03/18 [History] Fluticasone/Salmeterol [Advair 250-50 Diskus] 1 puff INH BID 11/03/18 [History] Magnesium Chloride [Mag Delay] 64 mg PO DAILY 11/03/18 [History] metOLazone [Metolazone] 2.5 mg PO ASDIRECTED PRN 11/03/18 [History] Cefdinir 300 mg PO BID 02/17/19 [History] Pantoprazole [ProTONIX] 40 mg PO BID 02/17/19 [History] Torsemide 20 mg PO BID 02/17/19 [History] Past Medical History HEENT History: Reports: Cataract, Hard of Hearing, Other (See Below) Other HEENT History: 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 Respiratory History: Reports: Asthma, COPD, Pneumonia, Recurrent, SOB Other Respiratory History: pleural effusion, hx of lung CA 2003 Gastrointestinal History: Reports: Other (See Below) Other Gastrointestinal History: Constipation and diarrhea issues. Genitourinary History: Reports: Renal Disease, Retention, Urinary Other Genitourinary History: hematuria, hyperuricemia, CKD Musculoskeletal History: Reports: Arthritis Other Musculoskeletal History: Mild arthritis, especially to fingers. Neurological History: Reports: Other (See Below) Other Neuro History: Episode of major headache last Spring, involved medications and a biopsy. Psychiatric History: Reports: Anxiety Endocrine/Metabolic History: Reports: Diabetes, Type II, Hypothyroidism, Obesity /BMI 30+ Hematologic History: Reports: Anticoagulation Therapy Other Hematologic History: coagulopathy Oncologic (Cancer) History: Reports: Lung Other Oncologic History: Renal mass. Lung CA 1994. Dermatologic History: Reports: Other (See Below) Other Dermatologic History: Dry skin, easily bruised. - Infectious Disease History Infectious Disease History: Reports: None Other Infectious Disease History: MRSA at one time, ears ?? Uncertain of childhood illnesses. - Past Surgical History Head Surgeries/Procedures: Reports: None HEENT Surgical History: Reports: Cataract Surgery Cardiovascular Surgical History: Reports: Coronary Artery Stent Social & Family History - Family History Family Medical History: Noncontributory HEENT: Reports: Hearing Impairment, Macular Degeneration : Reports: None Musculoskeletal: Reports: Arthritis, Back pain, Chronic Neurological: Reports: CVA Endocrine/Metabolic: Reports: Diabetes, Type I Dermatologic: Reports: None - Tobacco Use Smoking Status *Q: Never Smoker - Caffeine Use Caffeine Use: Reports: Soda - Recreational Drug Use Recreational Drug Use: No - Living Situation & Occupation Living situation: Reports: Occupation: Retired ED ROS GENERAL - Review of Systems Review Of Systems: See Below Constitutional: Reports: Malaise, Weakness. Denies: Fever, Chills HEENT: Reports: No Symptoms Respiratory: Reports: Shortness of Breath, Wheezing, Cough. Denies: Sputum Cardiovascular: Denies: Chest Pain, Edema, Palpitations Endocrine: Reports: No Symptoms GI/Abdominal: Reports: No Symptoms Skin: Reports: No Symptoms Neurological: Reports: No Symptoms Hematologic/Lymphatic: Reports: No Symptoms Immunologic: Reports: No Symptoms ED EXAM, GENERAL - Physical Exam Exam: See Below Exam Limited By: No Limitations General Appearance: Alert, WD/WN, No Apparent Distress Nose: Normal Inspection, Normal Mucosa Throat/Mouth: Normal Inspection, Normal Lips Head: Atraumatic, Normocephalic Neck: Normal Inspection, Supple, Non-Tender, Full Range of Motion Respiratory/Chest: Chest Non-Tender, Decreased Breath Sounds, Crackles, Rhonchi , Wheezing Cardiovascular: Normal Peripheral Pulses, No Edema, No Rub GI/Abdominal: Normal Bowel Sounds, Soft, Non-Tender, No Organomegaly Back Exam: Normal Inspection, Full Range of Motion Extremities: Normal Inspection, Normal Range of Motion, Non-Tender Neurological: Alert, Oriented, CN II-XII Intact Psychiatric: Normal Affect Course - Vital Signs Text/Narrative:: Labs reviewed and discussed with patient and and with full understanding duoneb x1 zaroxolyn 2.5 mg po x1 Lasix 40 mg IV x1 There is significant improvement of his dyspnea with the above treatment Case discussed with Dr Mckeon who agreed with the plan to admit patient to observation. Last Recorded V/S: Last Vital Signs Temp 36.6 C 02/17/19 09:50 Pulse 108 H 02/17/19 10:00 Resp 34 H 02/17/19 09:50 BP 131/64 02/17/19 09:50 Pulse Ox 93 L 02/17/19 10:00 - Orders/Labs/Meds Orders: Active Orders 24 hr Category Date Time Status Crum Catheter Insertion [Insert Urinary Catheter] [OM. Care 02/17/19 10:45 Ordered PC] Q24H RT Aerosol Therapy [RC] ASDIRECTED Care 02/17/19 09:57 Active Urinary Catheter Assessment [RC] QSHIFT Care 02/17/19 10:44 Active Chest 1V Frontal [CR] Stat Exams 02/17/19 09:54 Taken UA W/MICROSCOPIC [URIN] Stat Lab 02/17/19 11:06 Received Sodium Chloride 0.9% [Saline Flush] Med 02/17/19 09:54 Active 10 ml FLUSH ASDIRECTED PRN Saline Lock Insert [OM.PC] Routine Oth 02/17/19 09:54 Ordered Medication Orders Sodium Chloride (Saline Flush) 10 ml FLUSH ASDIRECTED PRN PRN Reason: Keep Vein Open Last Admin: 02/17/19 10:45 Dose: 10 ml Admin: 02/17/19 09:52 Dose: 10 ml Labs: Laboratory Tests 02/17/19 02/17/19 02/17/19 Range/Units 10:05 10:05 10:05 WBC 4.4 L (4.5-12.0) X10-3/uL RBC 3.23 L (4.30-5.75) x10(6)uL Hgb 8.9 L (13.5-17.8) g/dL Hct 28.3 L (30.0-51.3) % MCV 87.5 (80-96) fL MCH 27.6 L (27.7-33.6) pg MCHC 31.5 L (32.2-35.4) g/dL RDW 19.0 H (11.5-15.5) % Plt Count 192 (125-369) X10(3)uL MPV 7.4 (7.4-10.4) fL Neut % (Auto) 68.5 (46-82) % Lymph % (Auto) 25.2 (13-37) % [place] % (Auto) 5.2 (4-12) % Eos % (Auto) 1 (1.0-5.0) % Baso % (Auto) 0 (0-2) % Neut # (Auto) 3.1 (1.6-8.3) # Lymph # (Auto) 1.1 (0.6-5.0) # [place] # (Auto) 0.2 (0.0-1.3) # Eos # (Auto) 0.0 (0.0-0.8) # Baso # (Auto) 0.0 (0.0-0.2) # PT (8.7-11.1) INR (0.89-1.13) Sodium 141 (135-145) mmol/L Potassium 4.1 D (3.5-5.3) mmol/L Chloride 104 D (100-110) mmol/L Carbon Dioxide 26 (21-32) mmol/L BUN 55 H D (7-18) mg/dL Creatinine 2.0 H* (0.70-1.30) mg/dL Est Cr Clr Drug Dosing 28.50 mL/min Estimated GFR (MDRD) 32 L (>60) BUN/Creatinine Ratio 27.5 H (9-20) Glucose 171 H (80-116) mg/dL Lactic Acid (0.4-2.2) mmol/L Calcium 8.6 (8.6-10.2) mg/dL Total Bilirubin 0.6 (0.1-1.3) mg/dL AST 30 H D (5-25) IU/L ALT 8 L D (12-36) U/L Alkaline Phosphatase 166 H (56-112) IU/L Troponin I 0.069 H (<0.017-0.056) ng/mL NT-Pro-B Natriuret Pep 5805 H* (<=450) pg/mL Total Protein 7.3 (6.0-8.0) g/dL Albumin 2.5 L (3.2-4.6) g/dL Globulin 4.8 g/dL Albumin/Globulin Ratio 0.5 02/17/19 02/17/19 Range/Units 10:05 10:05 WBC (4.5-12.0) X10-3/uL RBC (4.30-5.75) x10(6)uL Hgb (13.5-17.8) g/dL Hct (30.0-51.3) % MCV (80-96) fL MCH (27.7-33.6) pg MCHC (32.2-35.4) g/dL RDW (11.5-15.5) % Plt Count (125-369) X10(3)uL MPV (7.4-10.4) fL Neut % (Auto) (46-82) % Lymph % (Auto) (13-37) % [place] % (Auto) (4-12) % Eos % (Auto) (1.0-5.0) % Baso % (Auto) (0-2) % Neut # (Auto) (1.6-8.3) # Lymph # (Auto) (0.6-5.0) # [place] # (Auto) (0.0-1.3) # Eos # (Auto) (0.0-0.8) # Baso # (Auto) (0.0-0.2) # PT 60.7 H* (8.7-11.1) INR 6.38 H* (0.89-1.13) Sodium (135-145) mmol/L Potassium (3.5-5.3) mmol/L Chloride (100-110) mmol/L Carbon Dioxide (21-32) mmol/L BUN (7-18) mg/dL Creatinine (0.70-1.30) mg/dL Est Cr Clr Drug Dosing mL/min Estimated GFR (MDRD) (>60) BUN/Creatinine Ratio (9-20) Glucose (80-116) mg/dL Lactic Acid 1.9 (0.4-2.2) mmol/L Calcium (8.6-10.2) mg/dL Total Bilirubin (0.1-1.3) mg/dL AST (5-25) IU/L ALT (12-36) U/L Alkaline Phosphatase (56-112) IU/L Troponin I (<0.017-0.056) ng/mL NT-Pro-B Natriuret Pep (<=450) pg/mL Total Protein (6.0-8.0) g/dL Albumin (3.2-4.6) g/dL Globulin g/dL Albumin/Globulin Ratio Meds: Medications Generic Name Dose Route Start Last Admin Trade Name Freq PRN Reason Stop Dose Admin Sodium Chloride 10 ml 02/17/19 09:54 02/17/19 10:45 Saline Flush FLUSH 10 ml ASDIRECTED PRN Administration Keep Vein Open Discontinued Medications Generic Name Dose Route Start Last Admin Trade Name Freq PRN Reason Stop Dose Admin Albuterol/Ipratropium 3 ml 02/17/19 09:57 12/17/19 10:00 Duoneb 3.0-0.5 Mg/3 Ml NEB 02/17/19 09:58 3 ml ONETIME ONE Administration Furosemide 40 mg 02/17/19 10:39 02/17/19 10:44 Lasix IVPUSH 02/17/19 10:40 40 mg NOW ONE Administration Metolazone 2.5 mg 02/17/19 10:39 02/17/19 10:44 Zaroxolyn PO 02/17/19 10:40 2.5 mg ONETIME ONE Administration Departure - Departure Time of Disposition: 11:00 Disposition: DC/Tfer W/I Hosp To [facility] Condition: Fair Clinical Impression: COPD exacerbation CHF exacerbation Qualifiers: Heart failure type: unspecified Qualified Code(s): I50.9 - Heart failure, unspecified - Discharge Information Sepsis Event Note - Evaluation Sepsis Screening Result: Possible Sepsis Risk - Focused Exam Vital Signs: Vital Signs Temp Pulse Resp BP Pulse Ox Pulse Ox 02/17/19 10:00 108 H 93 L 02/17/19 09:50 36.6 C 112 H 34 H 131/64 85 L Date Exam was Performed: 02/17/19 Time Exam was Performed: 11:36 - My Orders Last 24 Hours: My Active Orders 02/17/19 09:54 Chest 1V Frontal [CR] Stat Sodium Chloride 0.9% [Saline Flush] 10 ml FLUSH ASDIRECTED PRN Saline Lock Insert [OM.PC] Routine 02/17/19 09:57 RT Aerosol Therapy [RC] ASDIRECTED 02/17/19 10:44 Urinary Catheter Assessment [RC] QSHIFT 02/17/19 10:45 Crum Catheter Insertion [Insert Urinary Catheter] [OM.PC] Q24H 02/17/19 11:06 UA W/MICROSCOPIC [URIN] Stat - Assessment/Plan Last 24 Hours: My Active Orders 02/17/19 09:54 Chest 1V Frontal [CR] Stat Sodium Chloride 0.9% [Saline Flush] 10 ml FLUSH ASDIRECTED PRN Saline Lock Insert [OM.PC] Routine 02/17/19 09:57 RT Aerosol Therapy [RC] ASDIRECTED 02/17/19 10:44 Urinary Catheter Assessment [RC] QSHIFT 02/17/19 10:45 Crum Catheter Insertion [Insert Urinary Catheter] [OM.PC] Q24H 02/17/19 11:06 UA W/MICROSCOPIC [URIN] Stat
--- NOTE | 2019-02-17 11:59 | CR ---
INDICATION: Dyspnea. CHEST, ONE VIEW: Portable AP upright view of the chest 02/17/19 was compared with 11/03/18 and 10/25/18 revealing an appearance of increasing infiltration in the left mid lung field and left lower lung field compatible with progressive pneumonia and possibly some atelectasis as well as pleuritis. There is blunting of the costophrenic angle compatible with pleural effusion, possibly increased in size. No consolidating pneumonia was seen on the right. The heart appears enlarged, the aorta is tortuous with calcification in the arch. Overlying EKG leads are noted. IMPRESSION: 1. Increasing infiltration in the mid and lower lung field on the left compatible with progressively more severe pneumonia, possibly with some atelectasis and also with increasing pleural fluid. 2. ASHD with cardiomegaly. MTDD
[2019-02-17] MEDS ORDERED: Colchicine 0.6 MG Tab PO PRN (12:15)
[2019-02-17] MEDS ORDERED: Metolazone 2.5 MG Tab PO PRN (12:15)
[2019-02-17] MEDS ORDERED: Albuterol 8 GM Inhaler INH PRN (12:15)
[2019-02-17] MEDS ORDERED: Nitroglycerin 0.4 MG Tab.SL SL PRN (12:15)
--- NOTE | 2019-02-17 16:47 | PCM.HP.2 ---
H&P History of Present Illness - General Date of Service: 02/17/19 Admit Problem/Dx: Admission Diagnosis/Problem Admission Diagnosis/Problem Moderate COPD (chronic obstructive pulmonary disease) Source of Information: Patient, Old Records ([facility]), Provider - History of Present Illness Initial Comments - Free Text/Narative: Ethan is an 78 yr old male who presented to ER today for dyspnea, hypoxia, wheezing, and coughing. He was seen Feb 09 by Gennaro Gee PA-C and CXR showed left upper and left lower pneumonia, given Rocephin in clinic and then home on cephalosporin, he had follow up in [address] Llanes and showed improvement of his WBC and adjusted his Torsemide dose. He presented to clinic yesterday and saw Jena Claudio, FRAME WIRER had WBC 4.3, Cr 2.2, advised supportive care, and later added Cefdinir. No new x-ray. He had sudden onset of shortness of breath this morning, called his . His reports that he has not been urinating as much, but that his Torsemide dose was changed to every other day so he wasn' t getting dehydrated. His weight wasn't going up so the didn't take his Metolazone. His oxygen was in the 80s when he arrived in ER. Received Lasix 40 mg IV, had Crum placed and DuoNeb given with improvement of his breathing. He is saturating at 99% when arrived to the floor. No fevers or chills. No chest pain. No nausea, vomiting or diarrhea. Last echo was in July 2018, showed EF of 55% which was down from previous in 2018. Had history of Lung cancer. 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 Chest Pain Score (Numeric/FACES): 0 - Related Data Allergies/Adverse Reactions: Allergies Allergy/AdvReac Type Severity Reaction Status Date / Time prednisone Allergy Respiratory Verified 02/17/19 11:57 Distress Home Medications: Home Meds Levothyroxine [Synthroid] 100 mcg PO DAILY 10/21/13 [History] Albuterol [Ventolin HFA] 2 puff INH Q6H PRN 07/21/15 [History] Albuterol/Ipratropium [DuoNeb 3.0-0.5 MG/3 ML] 3 ml NEB Q4H PRN 09/18/17 [ History] Colchicine 0.6 mg PO ASDIRECTED PRN 09/18/17 [History] Isosorbide Mononitrate [Imdur] 60 mg PO DAILY 09/18/17 [History] atorvaSTATin Calcium [Lipitor] 40 mg PO DAILY 09/18/17 [History] Aspirin [Ecotrin EC] 81 mg PO DAILY 08/28/18 [History] Cyanocobalamin (Vitamin B-12) [B-12] 1,000 mcg PO DAILY 08/28/18 [History] Insulin Detemir [Levemir] 34 unit SUBCUT DAILY 08/28/18 [History] Mirtazapine 7.5 mg PO BEDTIME 08/28/18 [History] Gabapentin [Neurontin] 300 mg PO BID #90 cap 09/03/18 [Rx] Nitroglycerin [Nitrostat] 0.4 mg SL Q5M PRN 10/22/18 [History] Potassium Chloride [Klor-Con M20] 20 meq PO BEDTIME 10/22/18 [History] Ferrous Sulfate 325 mg PO DAILY 11/03/18 [History] Fluticasone/Salmeterol [Advair 250-50 Diskus] 1 puff INH BID 11/03/18 [History] Magnesium Chloride [Mag Delay] 64 mg PO DAILY 11/03/18 [History] metOLazone [Metolazone] 2.5 mg PO ASDIRECTED PRN 11/03/18 [History] Cefdinir 300 mg PO BID 02/17/19 [History] Insulin Aspart [NovoLOG] 0 unit SQ WITHMEALSANDBED PRN 02/17/19 [History] Pantoprazole [ProTONIX] 40 mg PO BID 02/17/19 [History] Torsemide 20 mg PO Q48H 02/17/19 [History] Warfarin Sodium [Coumadin] 5 mg PO SUTUWETHSA 02/17/19 [History] Warfarin [Coumadin] 7.5 mg PO MOFR 02/17/19 [History] Past Medical History HEENT History: Reports: Cataract, Hard of Hearing, Other (See Below) Other HEENT History: 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 Cardiovascular History: Reports: Afib, CAD, Heart Failure, High Cholesterol, Hypertension, Stents Other Cardiovascular History: Non-stemi [place]. Respiratory History: Reports: Asthma, COPD, Pneumonia, Recurrent, SOB Other Respiratory History: pleural effusion, hx of lung CA 2003 Gastrointestinal History: Reports: Other (See Below) Other Gastrointestinal History: Constipation and diarrhea issues. Genitourinary History: Reports: Renal Disease, Retention, Urinary Other Genitourinary History: hematuria, hyperuricemia, CKD Musculoskeletal History: Reports: Arthritis Other Musculoskeletal History: Mild arthritis, especially to fingers. Neurological History: Reports: Other (See Below) Other Neuro History: Episode of major headache last Spring, involved medications and a biopsy. Psychiatric History: Reports: Anxiety Endocrine/Metabolic History: Reports: Diabetes, Type II, Hypothyroidism, Obesity /BMI 30+ Hematologic History: Reports: Anticoagulation Therapy Other Hematologic History: coagulopathy Oncologic (Cancer) History: Reports: Lung Other Oncologic History: Renal mass. Lung CA 1994. Dermatologic History: Reports: Other (See Below) Other Dermatologic History: Dry skin, easily bruised. - Infectious Disease History Infectious Disease History: Reports: None Other Infectious Disease History: MRSA at one time, ears ?? Uncertain of childhood illnesses. - Past Surgical History Head Surgeries/Procedures: Reports: None HEENT Surgical History: Reports: Cataract Surgery Cardiovascular Surgical History: Reports: Coronary Artery Stent Social & Family History - Family History Family Medical History: Noncontributory HEENT: Reports: Hearing Impairment, Macular Degeneration : Reports: None Musculoskeletal: Reports: Arthritis, Back pain, Chronic Neurological: Reports: CVA Endocrine/Metabolic: Reports: Diabetes, Type I Dermatologic: Reports: None - Tobacco Use Smoking Status *Q: Never Smoker - Caffeine Use Caffeine Use: Reports: Soda - Recreational Drug Use Recreational Drug Use: No - Living Situation & Occupation Living situation: Reports: Occupation: Retired H&P Review of Systems - Review of Systems: Review Of Systems: Comprehensive ROS is negative, except as noted in HPI. Exam - Exam Exam: See Below - Vital Signs Vital Signs: Last Vital Signs Temp 98.2 F 02/17/19 13:05 Pulse 104 H 02/17/19 13:05 Resp 20 02/17/19 13:05 BP 121/68 02/17/19 13:05 Pulse Ox 98 02/17/19 13:06 Weight: 212 lb - Exam Quality Assessment: Supplemental Oxygen, Urinary Catheter General: Alert, Oriented, Cooperative, Mild Distress HEENT: PERRLA, Conjunctiva Clear, EACs Clear, EOMI, Hearing Intact, Nares Patent , Normal Nasal Septum, Posterior Pharynx Clear, Other (Dry mucosa membranes) Neck: Supple, Trachea Midline. No: Lymphadenopathy Lungs: Decreased Breath Sounds, Rales (wet respirations heard at bedside and on ausculations). No: Wheezing Cardiovascular: Regular Rate, Irregular Rhythm GI/Abdominal Exam: Normal Bowel Sounds, Soft, Non-Tender, No Distention (Male) Exam: Deferred Rectal (Males) Exam: Deferred Extremities: No Pedal Edema Peripheral Pulses: 2+: Radial (L), Radial (R), Posterior Tibial (L), Posterior Tibial (R), Dorsalis Pedis (L), Dorsalis Pedis (R) Skin: Warm, Dry, Intact, Other (Pale/zabala) Neurological: Cranial Nerves Intact Neuro Extensive - Mental Status: Alert, Oriented x3, Normal Mood/Affect, Normal Cognition, Memory Intact - Patient Data Lab Results Last 24 hrs: Laboratory Results - last 24 hr 02/17/19 02/17/19 02/17/19 Range/Units 10:05 10:05 10:05 WBC 4.4 L (4.5-12.0) X10-3/uL RBC 3.23 L (4.30-5.75) x10(6)uL Hgb 8.9 L (13.5-17.8) g/dL Hct 28.3 L (30.0-51.3) % MCV 87.5 (80-96) fL MCH 27.6 L (27.7-33.6) pg MCHC 31.5 L (32.2-35.4) g/dL RDW 19.0 H (11.5-15.5) % Plt Count 192 (125-369) X10(3)uL MPV 7.4 (7.4-10.4) fL Neut % (Auto) 68.5 (46-82) % Lymph % (Auto) 25.2 (13-37) % [place] % (Auto) 5.2 (4-12) % Eos % (Auto) 1 (1.0-5.0) % Baso % (Auto) 0 (0-2) % Neut # (Auto) 3.1 (1.6-8.3) # Lymph # (Auto) 1.1 (0.6-5.0) # [place] # (Auto) 0.2 (0.0-1.3) # Eos # (Auto) 0.0 (0.0-0.8) # Baso # (Auto) 0.0 (0.0-0.2) # PT (8.7-11.1) INR (0.89-1.13) Sodium 141 (135-145) mmol/L Potassium 4.1 D (3.5-5.3) mmol/L Chloride 104 D (100-110) mmol/L Carbon Dioxide 26 (21-32) mmol/L BUN 55 H D (7-18) mg/dL Creatinine 2.0 H* (0.70-1.30) mg/dL Est Cr Clr Drug Dosing 28.50 mL/min Estimated GFR (MDRD) 32 L (>60) BUN/Creatinine Ratio 27.5 H (9-20) Glucose 171 H (80-116) mg/dL Lactic Acid (0.4-2.2) mmol/L Calcium 8.6 (8.6-10.2) mg/dL Total Bilirubin 0.6 (0.1-1.3) mg/dL AST 30 H D (5-25) IU/L ALT 8 L D (12-36) U/L Alkaline Phosphatase 166 H (56-112) IU/L Troponin I 0.069 H (<0.017-0.056) ng/mL NT-Pro-B Natriuret Pep 5805 H* (<=450) pg/mL Total Protein 7.3 (6.0-8.0) g/dL Albumin 2.5 L (3.2-4.6) g/dL Globulin 4.8 g/dL Albumin/Globulin Ratio 0.5 Urine Color (YELLOW) Urine Appearance (CLEAR) Urine pH (5.0-6.5) Ur Specific Counce (1.010-1.025) Urine Protein (NEGATIVE) mg/dL Urine Glucose (UA) (NORMAL) mg/dL Urine Ketones (NEGATIVE) mg/dL Urine Occult Blood (NEGATIVE) Urine Nitrite (NEGATIVE) Urine Bilirubin (NEGATIVE) Urine Urobilinogen (NEGATIVE) mg/dL Ur Leukocyte Esterase (NEGATIVE) Urine RBC (0-5) Urine WBC (0-5) Ur Squamous Epith Cells (NS,R,O) Urine Bacteria (NS) 02/17/19 02/17/19 02/17/19 Range/Units 10:05 10:05 11:06 WBC (4.5-12.0) X10-3/uL RBC (4.30-5.75) x10(6)uL Hgb (13.5-17.8) g/dL Hct (30.0-51.3) % MCV (80-96) fL MCH (27.7-33.6) pg MCHC (32.2-35.4) g/dL RDW (11.5-15.5) % Plt Count (125-369) X10(3)uL MPV (7.4-10.4) fL Neut % (Auto) (46-82) % Lymph % (Auto) (13-37) % [place] % (Auto) (4-12) % Eos % (Auto) (1.0-5.0) % Baso % (Auto) (0-2) % Neut # (Auto) (1.6-8.3) # Lymph # (Auto) (0.6-5.0) # [place] # (Auto) (0.0-1.3) # Eos # (Auto) (0.0-0.8) # Baso # (Auto) (0.0-0.2) # PT 60.7 H* (8.7-11.1) INR 6.38 H* (0.89-1.13) Sodium (135-145) mmol/L Potassium (3.5-5.3) mmol/L Chloride (100-110) mmol/L Carbon Dioxide (21-32) mmol/L BUN (7-18) mg/dL Creatinine (0.70-1.30) mg/dL Est Cr Clr Drug Dosing mL/min Estimated GFR (MDRD) (>60) BUN/Creatinine Ratio (9-20) Glucose (80-116) mg/dL Lactic Acid 1.9 (0.4-2.2) mmol/L Calcium (8.6-10.2) mg/dL Total Bilirubin (0.1-1.3) mg/dL AST (5-25) IU/L ALT (12-36) U/L Alkaline Phosphatase (56-112) IU/L Troponin I (<0.017-0.056) ng/mL NT-Pro-B Natriuret Pep (<=450) pg/mL Total Protein (6.0-8.0) g/dL Albumin (3.2-4.6) g/dL Globulin g/dL Albumin/Globulin Ratio Urine Color Yellow (YELLOW) Urine Appearance Clear (CLEAR) Urine pH 5.0 (5.0-6.5) Ur Specific Counce 1.015 (1.010-1.025) Urine Protein Negative (NEGATIVE) mg/dL Urine Glucose (UA) Normal (NORMAL) mg/dL Urine Ketones Negative (NEGATIVE) mg/dL Urine Occult Blood Moderate H (NEGATIVE) Urine Nitrite Negative (NEGATIVE) Urine Bilirubin Negative (NEGATIVE) Urine Urobilinogen Normal (NEGATIVE) mg/dL Ur Leukocyte Esterase Negative (NEGATIVE) Urine RBC 5-10 H (0-5) Urine WBC 0-5 (0-5) Ur Squamous Epith Cells Few H (NS,R,O) Urine Bacteria Few H (NS) Result Diagrams: 02/17/19 10:05 02/17/19 10:05 Sepsis Event Note - Evaluation Sepsis Screening Result: No Definite Risk - Focused Exam Vital Signs: Vital Signs Temp Pulse Resp BP Pulse Ox Pulse Ox 02/17/19 13:06 98 02/17/19 13:05 98.2 F 104 H 20 121/68 98 98 02/17/19 11:50 98.0 F 96 21 H 113/71 96 02/17/19 10:00 108 H 93 L 02/17/19 09:50 97.9 F 112 H 34 H 131/64 85 L Date Exam was Performed: 02/17/19 Time Exam was Performed: 12:00 - Problem List (1) CHF exacerbation SNOMED Code(s): 659851427, 49005034724474 ICD Code: I50.9 - HEART FAILURE, UNSPECIFIED Status: Acute Current Visit : Yes Problem Details: ECHO 07/2018: EF 55% with preserved systolic dysfunction , decreased from 2018 echo. BNP 2500 at baseline, elevated today at 5805. Qualifiers: Heart failure type: unspecified Qualified Code(s): I50.9 - Heart failure, unspecified (2) Supratherapeutic INR SNOMED Code(s): 998180911 ICD Code: R79.1 - ABNORMAL COAGULATION PROFILE Status: Acute Current Visit: Yes Problem Details: hold coumadin and once therapeutic, warfarin sliding scale. (3) COPD exacerbation SNOMED Code(s): 529830964 ICD Code: J44.1 - CHRONIC OBSTRUCTIVE PULMONARY DISEASE W (ACUTE) EXACERBATION Status: Acute Current Visit: Yes Problem Details: Normal WBC in setting of persistent pneumonia on x-ray though clinic more consistent with CHF/COPD exacerbation. Procalcitonin for tomorrow as it is a send out to confirm if viral origin. Influenza screen today. Recheck WBC tomorrow, hold Cefdinir and do supportive care. May do CT chest tomorrow. CPAP on at night. Keep saturations 88-94%. (4) Atrial fibrillation and flutter SNOMED Code(s): 258124924 ICD Code: I48.91 - UNSPECIFIED ATRIAL FIBRILLATION; I48.92 - UNSPECIFIED ATRIAL FLUTTER Status: Acute Current Visit: No Problem Details: Atrial fibrillation was giving false readings on Telemetry so was discontinued. (5) CHF (congestive heart failure) SNOMED Code(s): 36380590 ICD Code: I50.9 - HEART FAILURE, UNSPECIFIED Status: Acute Current Visit : No Problem Details: Last echo 07/[address] [facility]. EF 55%, down from 2018 echo. Qualifiers: Heart failure type: unspecified Heart failure chronicity: acute on chronic Qualified Code(s): I50.9 - Heart failure, unspecified (6) Chronic renal insufficiency, stage IV (severe) SNOMED Code(s): 087411810 ICD Code: N18.4 - CHRONIC KIDNEY DISEASE, STAGE 4 (SEVERE) Status: Chronic Current Visit: No (7) Coronary arteriosclerosis in [place] artery SNOMED Code(s): 2339334576311 ICD Code: I25.10 - ATHSCL HEART DISEASE OF [place] CORONARY ARTERY W/O ANG PCTRS Status: Chronic Current Visit: No (8) Diabetes mellitus SNOMED Code(s): 26453970 ICD Code: E11.9 - TYPE 2 DIABETES MELLITUS WITHOUT COMPLICATIONS Status: Chronic Current Visit: No (9) Elevated troponin I level SNOMED Code(s): 034105555 ICD Code: R74.8 - ABNORMAL LEVELS OF OTHER SERUM ENZYMES Status: Chronic Current Visit: No (10) History of coronary artery stent placement SNOMED Code(s): 127360278, 518928635 ICD Code: Z95.5 - PRESENCE OF CORONARY ANGIOPLASTY IMPLANT AND GRAFT Status : Chronic Current Visit: No (11) History of lung cancer SNOMED Code(s): 317736742, 411672172 ICD Code: Z85.118 - PERSONAL HISTORY OF MALIGNANT NEOPLASM OF [place] AND LUNG Status: Chronic Current Visit: No (12) Palliative care status SNOMED Code(s): 705896812 ICD Code: Z51.5 - ENCOUNTER FOR PALLIATIVE CARE Status: Chronic Current Visit: No (13) Anticoagulated SNOMED Code(s): 784262547, 071556338 ICD Code: Z79.01 - SENIOR CARE (CURRENT) USE OF ANTICOAGULANTS Status: Chronic Current Visit: No (14) ADA on CPAP SNOMED Code(s): 17114999 ICD Code: G47.33 - OBSTRUCTIVE SLEEP APNEA (ADULT) (PEDIATRIC); Z99.89 - DEPENDENCE ON OTHER ENABLING MACHINES AND DEVICES Status: Acute Current Visit: Yes Problem List Initiated/Reviewed/Updated: Yes Orders Last 24hrs: Active Orders 24 hr Category Date Time Status Patient Status [ADT] Routine ADT 02/17/19 11:30 Active Anticoag Warfarin Education *Q [RC] DAILY Care 02/17/19 13:05 Active Antiembolic Devices [RC] .Routine Care 02/17/19 12:31 Active Blood Glucose Check, Bedside [RC] ,,17 Care 02/17/19 13:05 Active Crum Catheter Insertion [Insert Urinary Catheter] [OM. Care 02/17/19 10:45 Ordered PC] Q24H Height and Weight [RC] DAILY Care 02/17/19 13:05 Active Intake and Output [RC] QSHIFT Care 02/17/19 13:06 Active Oxygen Therapy [RC] PRN Care 02/17/19 13:05 Active Pulse Oximetry [RC] CONTINUOUS Care 02/17/19 13:06 Active RT Aerosol Therapy [RC] ASDIRECTED Care 02/17/19 09:57 Active Up With Assistance [RC] ASDIRECTED Care 02/17/19 13:05 Active Urinary Catheter Assessment [RC] QSHIFT Care 02/17/19 10:44 Active VTE/DVT Education [RC] Per Unit Routine Care 02/17/19 13:05 Active Vital Signs [RC] 08,12,16,20,00,04 Care 02/17/19 13:05 Active Heart Healthy Diet [DIET] Diet 02/17/19 Lunch Active BASIC METABOLIC PANEL,BMP [CHEM] Routine Lab 02/18/19 06:00 Ordered CBC WITH AUTO DIFF [HEME] Routine Lab 02/18/19 06:00 Ordered INFLUENZA A+B AG SCREEN [RM] Routine Lab 02/17/19 16:33 Ordered INR,PT,PROTHROMBIN TIME [COAG] Routine Lab 02/18/19 06:00 Ordered Albuterol [Ventolin HFA] Med 02/17/19 12:15 Active 0 gm INH Q6H PRN Albuterol/Ipratropium [DuoNeb 3.0-0.5 MG/3 ML] Med 02/17/19 12:15 Active 3 ml NEB Q4H PRN Aspirin [Halfprin] Med 02/18/19 09:00 Active 81 mg PO DAILY Colchicine [Colcrys] Med 02/17/19 12:15 Active 0.6 mg PO ASDIRECTED PRN Cyanocobalamin (Vitamin B12) [Vitamin B12] Med 02/18/19 09:00 Active 1,000 mcg PO DAILY Ferrous Sulfate Med 02/18/19 09:00 Active 325 mg PO DAILY Furosemide [Lasix] Med 02/17/19 21:00 Ordered 40 mg IVPUSH BID Gabapentin [Neurontin] Med 02/17/19 21:00 Active 300 mg PO BID Insulin Glarg,Human.Rec.Analog [LantUS Solostar] Med 02/18/19 09:00 Active 30 units SUBCUT DAILY Insulin Lispro [HumaLOG] Med 02/17/19 18:00 Active See Protocol SUBCUT TIDMEALS Isosorbide Mononitrate [Imdur] Med 02/18/19 09:00 Active 60 mg PO DAILY Levothyroxine [Synthroid] Med 02/18/19 06:00 Active 100 mcg PO 0600 Magnesium Chloride [Mag-64] Med 02/18/19 09:00 Active 64 mg PO DAILY Mirtazapine [Remeron] Med 02/17/19 21:00 Active 7.5 mg PO BEDTIME Mometasone/Formoterol [Dulera 200-5 MCG] Med 02/17/19 21:00 Active 0 puff IH BID Nitroglycerin [Nitrostat] Med 02/17/19 12:15 Active 0.4 mg SL Q5M PRN Pantoprazole [ProTONIX] Med 02/17/19 21:00 Active 40 mg PO BID Potassium Chloride [Klor-Con M20] Med 02/17/19 21:00 Active 20 meq PO BEDTIME Sodium Chloride 0.9% [Saline Flush] Med 02/17/19 09:54 Active 10 ml FLUSH ASDIRECTED PRN Warfarin Sliding Scale [Coumadin Sliding Scale] Med 02/18/19 09:00 Pending 1 each PO DAILY atorvaSTATin [Lipitor] Med 02/18/19 09:00 Active 40 mg PO DAILY metOLazone [Zaroxolyn] Med 02/17/19 12:15 Active 2.5 mg PO ASDIRECTED PRN Antiembolic Hose [OM.PC] Routine Oth 02/17/19 12:31 Ordered Saline Lock Insert [OM.PC] Routine Oth 02/17/19 09:54 Ordered Resuscitation Status Routine Resus Stat 02/17/19 13:05 Ordered Medication Orders Albuterol (Ventolin Hfa) 0 gm INH Q6H PRN PRN Reason: Dyspnea Albuterol/Ipratropium (Duoneb 3.0-0.5 Mg/3 Ml) 3 ml NEB Q4H PRN PRN Reason: Dyspnea Aspirin (Halfprin) 81 mg PO DAILY SUE Atorvastatin Calcium (Lipitor) 40 mg PO DAILY SUE Colchicine (Colcrys) 0.6 mg PO ASDIRECTED PRN PRN Reason: ACUTE GOUT Cyanocobalamin (Vitamin B12) 1,000 mcg PO DAILY SUE Ferrous Sulfate (Ferrous Sulfate) 325 mg PO DAILY SUE Furosemide (Lasix) 40 mg IVPUSH BID SUE Gabapentin (Neurontin) 300 mg PO BID [facility] Insulin Glargine (Lantus Solostar) 30 units SUBCUT DAILY [facility]1983 Insulin Human Lispro (Humalog) 0 unit SUBCUT TIDMEALS SUE; Protocol Isosorbide Mononitrate (Imdur) 60 mg PO DAILY [facility]1983 Levothyroxine Sodium (Synthroid) 100 mcg PO 0600 USE Magnesium Chloride (Mag-64) 64 mg PO DAILY SUE Metolazone (Zaroxolyn) 2.5 mg PO ASDIRECTED PRN PRN Reason: Weight gain Mirtazapine (Remeron) 7.5 mg PO BEDTIME SUE Mometasone Furoate/Formoterol Fumar (Dulera 200-5 Mcg) 0 puff IH BID SUE Nitroglycerin (Nitrostat) 0.4 mg SL Q5M PRN PRN Reason: Chest Pain Pantoprazole Sodium (Protonix) 40 mg PO BID SUE Potassium Chloride (Klor-Con M20) 20 meq PO BEDTIME SUE Sodium Chloride (Saline Flush) 10 ml FLUSH ASDIRECTED PRN PRN Reason: Keep Vein Open Last Admin: 02/17/19 10:45 Dose: 10 ml Admin: 02/17/19 09:52 Dose: 10 ml Warfarin Sodium (Coumadin Sliding Scale) 1 each PO DAILY [facility], [facility] Assessment/Plan Comment:: 1. Admit for further observation: IV diuresis, oxygen, nebulizer treatments, strict I&Os. 2. Repeat CBC, BMP tomorrow and procalcitonin in am. If WBC elevated will get CT chest to evaluate if more pneumonia vs CHF. 3. Lasix 40 mg IV bid, I&Os, had 1000 ml out 2 hours after Lasix given in ER. 4. Diabetic diet, Accuchecks ac & hs, Levemir 30 units daily, Humalog sliding scale. 5. Keep oxygen 88-94%, DuoNebs qid prn, Advair bid. 6. Sleep apnea: CPAP at night, will bring in his machine. 7. Has [facility], discussed palliative care with them, states that Yajaira told them he is not there yet. 8. FULL CODE - Mortality Measure Prognosis:: Poor
[2019-02-17] MEDS: Insulin Lispro 100 Unit/ML 3 ML KwikPen SUBCUT SCH (17:33)
[2019-02-17] MEDS: Formoterol/Mometasone 200-5 MCG 8.8 GM Inhaler IH SCH (20:02)
[2019-02-17] MEDS: Gabapentin 300 MG Cap PO SCH (20:03)
[2019-02-17] MEDS: Potassium Chloride 20 MEQ Tab.ER PO SCH (20:06)
[2019-02-17] MEDS: Pantoprazole 40 MG Tab.CR PO SCH (20:07)
[2019-02-17] MEDS: Mirtazapine 15 MG Tab PO SCH (20:07)
[2019-02-17] MEDS: Furosemide 40 MG/4 ML VIAL IVPUSH SCH (20:07)
[2019-02-18] MEDS: Acetaminophen 325 MG Tab PO PRN ×2 (03:04→21:11)
[2019-02-18] MEDS: Levothyroxine 100 MCG Tab PO SCH (05:00)
[2019-02-18] MEDS: Insulin Lispro 100 Unit/ML 3 ML KwikPen SUBCUT SCH ×3 (08:24→17:46)
[2019-02-18] MEDS ORDERED: Warfarin Sliding Scale PO SCH (09:00)
[2019-02-18] MEDS ORDERED: Aspirin 81 MG Tab.EC PO SCH (09:00)
[2019-02-18] MEDS: Formoterol/Mometasone 200-5 MCG 8.8 GM Inhaler IH SCH ×2 (09:15→21:10)
[2019-02-18] MEDS: Ferrous Sulfate 325 MG Tab PO SCH (09:15)
[2019-02-18] MEDS: atorvaSTATin 40 MG Tab PO SCH (09:16)
[2019-02-18] MEDS: Pantoprazole 40 MG Tab.CR PO SCH ×2 (09:16→21:11)
[2019-02-18] MEDS: Magnesium Chloride 64 MG Tab.ER PO SCH (09:16)
[2019-02-18] MEDS: Furosemide 40 MG/4 ML VIAL IVPUSH SCH ×2 (09:17→21:29)
[2019-02-18] MEDS: Cyanocobalamin (Vitamin B12) 1,000 MCG Tab PO SCH (09:17)
[2019-02-18] MEDS: Isosorbide Mononitrate 60 MG Tab.ER PO SCH (09:27)
[2019-02-18] MEDS: Gabapentin 300 MG Cap PO SCH ×2 (09:27→21:13)
[2019-02-18] MEDS: Insulin Glargine,Human Rec. Analog 100 Units/ML 3 ML Pen SUBCUT SCH (09:28)
[2019-02-18] MEDS: Sodium Chloride 0.9% 10 ML Syringe FLUSH PRN ×2 (09:40→21:29)
--- NOTE | 2019-02-18 10:46 | CT ---
INDICATION: Re-evaluation of left lower lobe pneumonia. History of lung cancer. CT CHEST WITHOUT CONTRAST: Spiral 3.75 mm axial sections were obtained through the chest with sagittal and coronal reconstructions, no contrast, 02/18/19 and compared with 12/29/18. Total exam DLP was 650.69 mGy-cm. The amount of pleural fluid on the left has slightly decreased, especially in the upper lobe area. There remain some calcific changes apparently in pleura at the lung base on the left, which may be related to asbestosis but should be correlated clinically. Areas of consolidation and/or atelectasis are noted in the left upper lobe and lower lobe and appear essentially unchanged from the previous study. Neoplasia could also be present with this appearance. There is also some relatively minimal infiltrate in the right upper lobe at the apex and in the right lower lobe posteriorly at the lung base, which appears new in the case of the apex of the right lobe and significantly decreased compared with the right lung base - right lower lobe, compared with 12/29/2018. No other change or new acute process was identified. The heart is enlarged with coronary artery calcification. Calcifications are noted in the aorta, in the arch and descending portion, and also in the brachiocephalic vessels. The upper abdomen included on the study appears essentially unchanged with a small nodular density at the right adrenal, most likely representing an adenoma - appears stable compared with 08/13/2016 CT chest. Gallstones are also noted. Calcifications are noted in the abdominal aorta and splenic arteries. IMPRESSION: 1. Continued pleural parenchymal changes on the left with decreased amount of pleural fluid, especially in the upper lobe - apical area c/w recent CT Chest, but with continued consolidating areas of infiltrate in the upper middle and lower lung [place] - essentially unchanged and compatible with pneumonia and/or neoplasia. 2. Infiltrate is new and minimal in the right apex and may represent pneumonia and/or metastatic disease. 3. Decreased infiltrate suggesting resolving pneumonia at the right lower lobe lung base. 4. Cholelithiasis. 5. ASHD. 6. ASD. 7. Stable adrenal nodule, most likely adenoma. MTDD
[2019-02-18] MEDS: Albuterol/Ipratropium 3.0-0.5 MG/3 ML Neb Soln NEB PRN ×3 (11:23→21:13)
[2019-02-18] MEDS ORDERED: Phytonadione ORAL 5mg/5ml Soln Simple Syrup U/D PO ONE (15:42)
--- NOTE | 2019-02-18 18:33 | PCM.PN ---
- General Info Date of Service: 02/18/19 Subjective Update: Patient is down 10 lbs from yesterday, feels much better. Denies any fevers, chills, productive cough. Last PET scan was in Feb 2018 which showed no recurrence of his cancer. Last thoracentesis was this summer. Had pleurodesis last winter but has had about 6 thoracentesis since then. No nausea, vomiting or diarrhea today. Slept well. - Patient Data Vitals - Most Recent: Last Vital Signs Temp 98.1 F 02/18/19 17:02 Pulse 98 02/18/19 17:02 Resp 20 02/18/19 17:02 BP 108/60 02/18/19 17:02 Pulse Ox 93 L 02/18/19 17:02 Weight - Most Recent: 202 lb 2 oz I&O - Last 24 Hours: Intake & Output 02/18/19 02/18/19 02/18/19 06:59 14:59 22:59 Intake Total 650 Output Total 2775 1250 Balance -2125 -1250 Lab Results Last 24 Hours: Laboratory Results - last 24 hr 02/18/19 02/18/19 02/18/19 Range/Units 07:00 07:00 07:00 WBC 3.6 L (4.5-12.0) X10-3/uL RBC 2.95 L (4.30-5.75) x10(6)uL Hgb 8.1 L (13.5-17.8) g/dL Hct 25.6 L (30.0-51.3) % MCV 87.0 (80-96) fL MCH 27.5 L (27.7-33.6) pg MCHC 31.6 L (32.2-35.4) g/dL RDW 18.8 H (11.5-15.5) % Plt Count 227 (125-369) X10(3)uL MPV 7.0 L (7.4-10.4) fL Neut % (Auto) 59.8 (46-82) % Lymph % (Auto) 31.1 (13-37) % Alfalfa % (Auto) 7.4 (4-12) % Eos % (Auto) 1 (1.0-5.0) % Baso % (Auto) 0 (0-2) % Neut # (Auto) 2.1 (1.6-8.3) # Lymph # (Auto) 1.1 (0.6-5.0) # Alfalfa # (Auto) 0.3 (0.0-1.3) # Eos # (Auto) 0.0 (0.0-0.8) # Baso # (Auto) 0.0 (0.0-0.2) # PT 54.1 H* (8.7-11.1) INR 5.68 H* (0.89-1.13) Sodium 143 (135-145) mmol/L Potassium 3.7 (3.5-5.3) mmol/L Chloride 105 (100-110) mmol/L Carbon Dioxide 29 (21-32) mmol/L BUN 56 H (7-18) mg/dL Creatinine 1.8 H (0.70-1.30) mg/dL Est Cr Clr Drug Dosing 31.67 mL/min Estimated GFR (MDRD) 36 L (>60) BUN/Creatinine Ratio 31.1 H (9-20) Glucose 109 (80-116) mg/dL POC Glucose (80-116) mg/dL Calcium 8.6 (8.6-10.2) mg/dL 02/18/19 02/18/19 02/18/19 Range/Units 07:46 11:39 17:14 WBC (4.5-12.0) X10-3/uL RBC (4.30-5.75) x10(6)uL Hgb (13.5-17.8) g/dL Hct (30.0-51.3) % MCV (80-96) fL MCH (27.7-33.6) pg MCHC (32.2-35.4) g/dL RDW (11.5-15.5) % Plt Count (125-369) X10(3)uL MPV (7.4-10.4) fL Neut % (Auto) (46-82) % Lymph % (Auto) (13-37) % Alfalfa % (Auto) (4-12) % Eos % (Auto) (1.0-5.0) % Baso % (Auto) (0-2) % Neut # (Auto) (1.6-8.3) # Lymph # (Auto) (0.6-5.0) # Alfalfa # (Auto) (0.0-1.3) # Eos # (Auto) (0.0-0.8) # Baso # (Auto) (0.0-0.2) # PT (8.7-11.1) INR (0.89-1.13) Sodium (135-145) mmol/L Potassium (3.5-5.3) mmol/L Chloride (100-110) mmol/L Carbon Dioxide (21-32) mmol/L BUN (7-18) mg/dL Creatinine (0.70-1.30) mg/dL Est Cr Clr Drug Dosing mL/min Estimated GFR (MDRD) (>60) BUN/Creatinine Ratio (9-20) Glucose (80-116) mg/dL POC Glucose 114 135 H 172 H (80-116) mg/dL Calcium (8.6-10.2) mg/dL Leonardo Results Last 24 Hours: Microbiology 02/17/19 17:55 Influenza Type A Antigen Screen - Final Nasopharyngeal Swab NEGATIVE INFLUENZA A VIRUS AG REFERENCE RANGE: NEGATIVE Influenza Type B Antigen Screen - Final NEGATIVE INFLUENZA B VIRUS AG REFERENCE RANGE: NEGATIVE Med Orders - Current: Current Medications Acetaminophen (Tylenol) 650 mg PO Q4H PRN PRN Reason: Pain (mild 1-3) Last Admin: 02/18/19 03:04 Dose: 650 mg Albuterol (Ventolin Hfa) 0 gm INH Q6H PRN PRN Reason: Dyspnea Albuterol/Ipratropium (Duoneb 3.0-0.5 Mg/3 Ml) 3 ml NEB Q4H PRN PRN Reason: Dyspnea Last Admin: 02/18/19 17:10 Dose: 3 ml Atorvastatin Calcium (Lipitor) 40 mg PO DAILY [facility] Last Admin: 02/18/19 09:16 Dose: 40 mg Colchicine (Colcrys) 0.6 mg PO ASDIRECTED PRN PRN Reason: ACUTE GOUT Cyanocobalamin (Vitamin B12) 1,000 mcg PO DAILY [facility] Last Admin: 02/18/19 09:17 Dose: 1,000 mcg Ferrous Sulfate (Ferrous Sulfate) 325 mg PO DAILY [facility] Last Admin: 02/18/19 09:15 Dose: 325 mg Furosemide (Lasix) 40 mg IVPUSH BID [facility] Last Admin: 02/18/19 09:17 Dose: 40 mg Gabapentin (Neurontin) 300 mg PO BID [facility] Last Admin: 02/18/19 09:27 Dose: 300 mg Insulin Glargine (Lantus Solostar) 30 units SUBCUT DAILY [facility] Last Admin: 02/18/19 09:28 Dose: 30 units Insulin Human Lispro (Humalog) 0 unit SUBCUT TIDMEALS [facility]; Protocol Last Admin: 02/18/19 17:46 Dose: 2 units Isosorbide Mononitrate (Imdur) 60 mg PO DAILY [facility] Last Admin: 02/18/19 09:27 Dose: 60 mg Levothyroxine Sodium (Synthroid) 100 mcg PO 0600 [facility] Last Admin: 02/18/19 05:00 Dose: 100 mcg Magnesium Chloride (Mag-64) 64 mg PO DAILY [facility] Last Admin: 02/18/19 09:16 Dose: 64 mg Metolazone (Zaroxolyn) 2.5 mg PO ASDIRECTED PRN PRN Reason: Weight gain Mirtazapine (Remeron) 7.5 mg PO BEDTIME [facility] Last Admin: 02/17/19 20:07 Dose: 7.5 mg Mometasone Furoate/Formoterol Fumar (Dulera 200-5 Mcg) 0 puff IH BID [facility] Last Admin: 02/18/19 09:15 Dose: 2 inhalation Nitroglycerin (Nitrostat) 0.4 mg SL Q5M PRN PRN Reason: Chest Pain Pantoprazole Sodium (Protonix) 40 mg PO BID [facility] Last Admin: 02/18/19 09:16 Dose: 40 mg Potassium Chloride (Klor-Con M20) 20 meq PO BEDTIME [facility] Last Admin: 02/17/19 20:06 Dose: 20 meq Sodium Chloride (Saline Flush) 10 ml FLUSH ASDIRECTED PRN PRN Reason: Keep Vein Open Last Admin: 02/18/19 09:40 Dose: 10 ml Warfarin Sodium (Coumadin Sliding Scale) 1 each PO DAILY [facility] Discontinued Medications Albuterol/Ipratropium (Duoneb 3.0-0.5 Mg/3 Ml) 3 ml NEB ONETIME ONE Stop: 02/17/19 09:58 Last Admin: 02/17/19 10:00 Dose: 3 ml Aspirin (Halfprin) 81 mg PO DAILY [facility] Last Admin: 02/18/19 09:16 Dose: 81 mg Furosemide (Lasix) 40 mg IVPUSH NOW ONE Stop: 02/17/19 10:40 Last Admin: 02/17/19 10:44 Dose: 40 mg Metolazone (Zaroxolyn) 2.5 mg PO ONETIME ONE Stop: 02/17/19 10:40 Last Admin: 02/17/19 10:44 Dose: 2.5 mg Phytonadione (Aquamephyton) 5 mg PO ONETIME ONE Stop: 02/18/19 15:43 Last Admin: 02/18/19 16:05 Dose: 5 mg - Exam General: Alert, Oriented, Cooperative, No Acute Distress Lungs: Normal Respiratory Effort, Crackles (Bibasilar L>R). No: Wheezing Cardiovascular: Regular Rate, Irregular Rhythm GI/Abdominal Exam: Normal Bowel Sounds, Soft, Non-Tender, No Distention Extremities: No Pedal Edema Peripheral Pulses: 2+: Radial (L), Radial (R), Posterior Tibial (L), Posterior Tibial (R), Dorsalis Pedis (L), Dorsalis Pedis (R) Skin: Warm, Dry, Intact Sepsis Event Note - Evaluation Sepsis Screening Result: No Definite Risk - Focused Exam Vital Signs: Vital Signs Temp Pulse Resp BP Pulse Ox 02/18/19 17:02 98.1 F 98 20 108/60 93 L 02/18/19 11:28 98.1 F 91 20 112/64 98 02/18/19 08:00 97.9 F 96 20 124/70 90 L 02/18/19 06:47 93 L Date Exam was Performed: 02/18/19 Time Exam was Performed: 07:45 - Problem List & Annotations (1) CHF exacerbation SNOMED Code(s): 994974517, 86025608458284 Code(s): I50.9 - HEART FAILURE, UNSPECIFIED Status: Acute Current Visit: Yes Qualifiers: Heart failure type: unspecified Qualified Code(s): I50.9 - Heart failure, unspecified Annotation/Comment:: ECHO 07/2018: EF 55% with preserved systolic dysfunction, decreased from 2018 echo. BNP 2500 at baseline, elevated today at 5805. (2) Supratherapeutic INR SNOMED Code(s): 967278184 Code(s): R79.1 - ABNORMAL COAGULATION PROFILE Status: Acute Current Visit : Yes Annotation/Comment:: hold coumadin and once therapeutic, warfarin sliding scale. (3) COPD exacerbation SNOMED Code(s): 986327627 Code(s): J44.1 - CHRONIC OBSTRUCTIVE PULMONARY DISEASE W (ACUTE) EXACERBATION Status: Acute Current Visit: Yes Annotation/Comment:: CT chest today to evaluate, procalcitonin will be back on Saturday. Will hold off antibiotics. (4) Atrial fibrillation and flutter SNOMED Code(s): 036801714 Code(s): I48.91 - UNSPECIFIED ATRIAL FIBRILLATION; I48.92 - UNSPECIFIED ATRIAL FLUTTER Status: Acute Current Visit: No Annotation/Comment:: (5) CHF (congestive heart failure) SNOMED Code(s): 08070216 Code(s): I50.9 - HEART FAILURE, UNSPECIFIED Status: Acute Current Visit: No Qualifiers: Heart failure type: unspecified Heart failure chronicity: acute on chronic Qualified Code(s): I50.9 - Heart failure, unspecified Annotation/Comment:: Last echo 07/2018 at [facility]. EF 55%, down from 2018 echo. (6) Chronic renal insufficiency, stage IV (severe) SNOMED Code(s): 423420937 Code(s): N18.4 - CHRONIC KIDNEY DISEASE, STAGE 4 (SEVERE) Status: Chronic Current Visit: No (7) Coronary arteriosclerosis in [place] artery SNOMED Code(s): 7117824241598 Code(s): I25.10 - ATHSCL HEART DISEASE OF [place] CORONARY ARTERY W/O ANG PCTRS Status: Chronic Current Visit: No (8) Diabetes mellitus SNOMED Code(s): 86837844 Code(s): E11.9 - TYPE 2 DIABETES MELLITUS WITHOUT COMPLICATIONS Status: Chronic Current Visit: No (9) Elevated troponin I level SNOMED Code(s): 091125177 Code(s): R74.8 - ABNORMAL LEVELS OF OTHER SERUM ENZYMES Status: Chronic Current Visit: No (10) History of coronary artery stent placement SNOMED Code(s): 434868369, 133581360 Code(s): Z95.5 - PRESENCE OF CORONARY ANGIOPLASTY IMPLANT AND GRAFT Status : Chronic Current Visit: No (11) History of lung cancer SNOMED Code(s): 510918891, 465091816 Code(s): Z85.118 - PERSONAL HISTORY OF MALIGNANT NEOPLASM OF [place] AND LUNG Status: Chronic Current Visit: No (12) Palliative care status SNOMED Code(s): 360385305 Code(s): Z51.5 - ENCOUNTER FOR PALLIATIVE CARE Status: Chronic Current Visit: No (13) Anticoagulated SNOMED Code(s): 752353849, 347794107 Code(s): Z79.01 - SCHOOL YEAR NANNY (CURRENT) USE OF ANTICOAGULANTS Status: Chronic Current Visit: No (14) ADA on CPAP SNOMED Code(s): 59577632 Code(s): G47.33 - OBSTRUCTIVE SLEEP APNEA (ADULT) (PEDIATRIC); Z99.89 - DEPENDENCE ON OTHER ENABLING MACHINES AND DEVICES Status: Acute Current Visit: Yes - Problem List Review Problem List Initiated/Reviewed/Updated: Yes - My Orders Last 24 Hours: My Active Orders 02/17/19 18:00 Insulin Lispro [HumaLOG] See Protocol SUBCUT TIDMEALS 02/17/19 21:00 Furosemide [Lasix] 40 mg IVPUSH BID Gabapentin [Neurontin] 300 mg PO BID Mirtazapine [Remeron] 7.5 mg PO BEDTIME Mometasone/Formoterol [Dulera 200-5 MCG] 0 puff IH BID Pantoprazole [ProTONIX] 40 mg PO BID Potassium Chloride [Klor-Con M20] 20 meq PO BEDTIME 02/18/19 02:40 Acetaminophen [Tylenol] 650 mg PO Q4H PRN 02/18/19 06:00 Levothyroxine [Synthroid] 100 mcg PO 0600 02/18/19 07:00 PROCALCITONIN Routine 02/18/19 09:00 Cyanocobalamin (Vitamin B12) [Vitamin B12] 1,000 mcg PO DAILY Ferrous Sulfate 325 mg PO DAILY Insulin Glarg,Human.Rec.Analog [LantUS Solostar] 30 units SUBCUT DAILY Isosorbide Mononitrate [Imdur] 60 mg PO DAILY Magnesium Chloride [Mag-64] 64 mg PO DAILY Warfarin Sliding Scale [Coumadin Sliding Scale] 1 each PO DAILY atorvaSTATin [Lipitor] 40 mg PO DAILY 02/18/19 13:39 Consult to Physician [CONS] Routine 02/18/19 13:40 Notify Provider Consults [RC] ASDIRECTED 02/18/19 15:40 Patient Status [ADT] Routine 02/19/19 05:11 INR,PT,PROTHROMBIN TIME [COAG] AM 02/19/19 06:00 BASIC METABOLIC PANEL,BMP [CHEM] Routine CBC WITH AUTO DIFF [HEME] Routine 02/20/19 05:11 INR,PT,PROTHROMBIN TIME [COAG] AM - Plan Plan:: 1. CT chest today showed persistent consolidation in left middle and left upper question pneumonia vs neoplasm. Patient reports that oncologist stated it was a scar and that was present last year when they did PET scan and didn't light up. Consulted Dr Jade, if he is still short of breath even with diuresis on Saturday and his INR is below/around 2 he would do a therapeutic thoracentesis then. 2. Lasix 40 mg IV bid, I&Os, had 1000 ml out 2 hours after Lasix given in ER. 3. Keep oxygen 88-94%, DuoNebs qid prn, Advair bid. 4. Vitamin K 5 mg x 1, repeat INR in am, will try to get around 2. May repeat Vitamin K or FFP if needed.
[2019-02-18] MEDS: Potassium Chloride 20 MEQ Tab.ER PO SCH (21:10)
[2019-02-18] MEDS: Mirtazapine 15 MG Tab PO SCH (21:11)
--- NOTE | 2019-02-18 22:47 | CONS ---
DATE OF CONSULTATION: 02/18/2019 This patient was hospitalized yesterday with dyspnea and hypoxia. He was noted to have developed congestive heart failure and has responded to treatment given over the past 24 hours. Currently , he says his breathing is much improved from the time of admission. The patient has a known history of COPD as well as a history of lung cancer having been treated in 2003. The patient has had recurring pleural effusions in the past, requiring multiple thoracenteses as well as pleurodesis, but has been doing well for the past several months without redevelopment of his pleural effusion with the medication controlling this. On evaluation at the time of this admission, a CT scan has been done and this does show a small pleural effusion noted at the base of the patient's left lung. This is smaller in size than previous pleural effusions that have been tapped, but some fluid is noted. The patient has been treated in the recent past for possible pneumonia, and with the use of antibiotics, his INR has gone quite high with the INR level of 5.68 today. I discussed with the patient today possible thoracentesis once his INR has been corrected. With the small amount of pleural fluid noted, it is unclear if he would gain significant benefit from this, although there may be some help to him from draining this fluid. At this point, we have decided to monitor the situation for the next 2 days while his INR is coming down and we will reassess him at that time to see if his breathing has returned to his normal baseline, but if he still has some shortness of breath, then may consider thoracentesis at that time in order to help him breathe easier. /[id number] TRAVIS/CHRISTOPHER
[2019-02-19] MEDS: Levothyroxine 100 MCG Tab PO SCH (05:54)
[2019-02-19] MEDS: Albuterol/Ipratropium 3.0-0.5 MG/3 ML Neb Soln NEB PRN ×3 (08:19→20:52)
[2019-02-19] MEDS: Insulin Glargine,Human Rec. Analog 100 Units/ML 3 ML Pen SUBCUT SCH (08:28)
[2019-02-19] MEDS: Insulin Lispro 100 Unit/ML 3 ML KwikPen SUBCUT SCH ×3 (08:29→17:46)
[2019-02-19] MEDS ORDERED: Potassium Chloride 10 MEQ Tab.ER PO ONE (09:00)
[2019-02-19] MEDS: Formoterol/Mometasone 200-5 MCG 8.8 GM Inhaler IH SCH ×2 (09:11→20:22)
[2019-02-19] MEDS: atorvaSTATin 40 MG Tab PO SCH (09:12)
[2019-02-19] MEDS: Isosorbide Mononitrate 60 MG Tab.ER PO SCH (09:12)
[2019-02-19] MEDS: Ferrous Sulfate 325 MG Tab PO SCH (09:12)
[2019-02-19] MEDS: Magnesium Chloride 64 MG Tab.ER PO SCH (09:12)
[2019-02-19] MEDS: Furosemide 40 MG/4 ML VIAL IVPUSH SCH (09:12)
[2019-02-19] MEDS: Pantoprazole 40 MG Tab.CR PO SCH ×2 (09:13→20:27)
[2019-02-19] MEDS: Cyanocobalamin (Vitamin B12) 1,000 MCG Tab PO SCH (09:13)
[2019-02-19] MEDS: Gabapentin 300 MG Cap PO SCH ×2 (09:13→20:26)
--- NOTE | 2019-02-19 11:21 | PCM.PN ---
- General Info Date of Service: 02/19/19 Subjective Update: Patient feels better, not requiring oxygen. Had some blood on Kleenex but no significant bleeding. Not feeling tired. INR down to 2.25 today. No fever or chills. Wheezing occasionally. Had good output overnight, down 3 lbs, total 12 lbs since admission. - Patient Data Vitals - Most Recent: Last Vital Signs Temp 97.7 F 02/19/19 08:00 Pulse 96 02/19/19 08:00 Resp 20 02/19/19 08:00 BP 120/60 02/19/19 08:00 Pulse Ox 92 L 02/19/19 08:00 Weight - Most Recent: 199 lb I&O - Last 24 Hours: Intake & Output 02/18/19 02/19/19 02/19/19 22:59 06:59 14:59 Intake Total 800 250 Output Total 600 625 825 Balance 200 -343 -188 Lab Results Last 24 Hours: Laboratory Results - last 24 hr 02/18/19 02/18/19 02/19/19 Range/Units 11:39 17:14 05:50 WBC (4.5-12.0) X10-3/uL RBC (4.30-5.75) x10(6)uL Hgb (13.5-17.8) g/dL Hct (30.0-51.3) % MCV (80-96) fL MCH (27.7-33.6) pg MCHC (32.2-35.4) g/dL RDW (11.5-15.5) % Plt Count (125-369) X10(3)uL MPV (7.4-10.4) fL Neut % (Auto) (46-82) % Lymph % (Auto) (13-37) % [place] % (Auto) (4-12) % Eos % (Auto) (1.0-5.0) % Baso % (Auto) (0-2) % Neut # (Auto) (1.6-8.3) # Lymph # (Auto) (0.6-5.0) # [place] # (Auto) (0.0-1.3) # Eos # (Auto) (0.0-0.8) # Baso # (Auto) (0.0-0.2) # PT (8.7-11.1) INR (0.89-1.13) Sodium (135-145) mmol/L Potassium (3.5-5.3) mmol/L Chloride (100-110) mmol/L Carbon Dioxide (21-32) mmol/L BUN (7-18) mg/dL Creatinine (0.70-1.30) mg/dL Est Cr Clr Drug Dosing mL/min Estimated GFR (MDRD) (>60) BUN/Creatinine Ratio (9-20) Glucose (80-116) mg/dL POC Glucose 135 H 172 H 152 H (80-116) mg/dL Calcium (8.6-10.2) mg/dL 02/19/19 02/19/19 02/19/19 Range/Units 06:40 06:40 06:40 WBC 3.7 L (4.5-12.0) X10-3/uL RBC 2.82 L (4.30-5.75) x10(6)uL Hgb 7.8 L (13.5-17.8) g/dL Hct 24.7 L (30.0-51.3) % MCV 87.6 (80-96) fL MCH 27.7 (27.7-33.6) pg MCHC 31.7 L (32.2-35.4) g/dL RDW 19.2 H (11.5-15.5) % Plt Count 230 (125-369) X10(3)uL MPV 7.2 L (7.4-10.4) fL Neut % (Auto) 53.7 (46-82) % Lymph % (Auto) 34.9 (13-37) % [place] % (Auto) 8.4 (4-12) % Eos % (Auto) 3 (1.0-5.0) % Baso % (Auto) 0 (0-2) % Neut # (Auto) 2.0 (1.6-8.3) # Lymph # (Auto) 1.3 (0.6-5.0) # [place] # (Auto) 0.3 (0.0-1.3) # Eos # (Auto) 0.1 (0.0-0.8) # Baso # (Auto) 0.0 (0.0-0.2) # PT 21.6 H (8.7-11.1) INR 2.25 H (0.89-1.13) Sodium 143 (135-145) mmol/L Potassium 3.4 L (3.5-5.3) mmol/L Chloride 103 (100-110) mmol/L Carbon Dioxide 32 (21-32) mmol/L BUN 59 H (7-18) mg/dL Creatinine 1.8 H (0.70-1.30) mg/dL Est Cr Clr Drug Dosing 31.67 mL/min Estimated GFR (MDRD) 36 L (>60) BUN/Creatinine Ratio 32.8 H (9-20) Glucose 149 H (80-116) mg/dL POC Glucose (80-116) mg/dL Calcium 8.7 (8.6-10.2) mg/dL 02/19/19 Range/Units 08:26 WBC (4.5-12.0) X10-3/uL RBC (4.30-5.75) x10(6)uL Hgb (13.5-17.8) g/dL Hct (30.0-51.3) % MCV (80-96) fL MCH (27.7-33.6) pg MCHC (32.2-35.4) g/dL RDW (11.5-15.5) % Plt Count (125-369) X10(3)uL MPV (7.4-10.4) fL Neut % (Auto) (46-82) % Lymph % (Auto) (13-37) % [place] % (Auto) (4-12) % Eos % (Auto) (1.0-5.0) % Baso % (Auto) (0-2) % Neut # (Auto) (1.6-8.3) # Lymph # (Auto) (0.6-5.0) # [place] # (Auto) (0.0-1.3) # Eos # (Auto) (0.0-0.8) # Baso # (Auto) (0.0-0.2) # PT (8.7-11.1) INR (0.89-1.13) Sodium (135-145) mmol/L Potassium (3.5-5.3) mmol/L Chloride (100-110) mmol/L Carbon Dioxide (21-32) mmol/L BUN (7-18) mg/dL Creatinine (0.70-1.30) mg/dL Est Cr Clr Drug Dosing mL/min Estimated GFR (MDRD) (>60) BUN/Creatinine Ratio (9-20) Glucose (80-116) mg/dL POC Glucose 152 H (80-116) mg/dL Calcium (8.6-10.2) mg/dL Med Orders - Current: Current Medications Acetaminophen (Tylenol) 650 mg PO Q4H PRN PRN Reason: Pain (mild 1-3) Last Admin: 02/18/19 21:11 Dose: 650 mg Albuterol (Ventolin Hfa) 0 gm INH Q6H PRN PRN Reason: Dyspnea Albuterol/Ipratropium (Duoneb 3.0-0.5 Mg/3 Ml) 3 ml NEB Q4H PRN PRN Reason: Dyspnea Last Admin: 02/19/19 08:19 Dose: 3 ml Atorvastatin Calcium (Lipitor) 40 mg PO DAILY [facility] Last Admin: 02/19/19 09:12 Dose: 40 mg Colchicine (Colcrys) 0.6 mg PO ASDIRECTED PRN PRN Reason: ACUTE GOUT Cyanocobalamin (Vitamin B12) 1,000 mcg PO DAILY [facility] Last Admin: 02/19/19 09:13 Dose: 1,000 mcg Ferrous Sulfate (Ferrous Sulfate) 325 mg PO DAILY [facility] Last Admin: 02/19/19 09:12 Dose: 325 mg Furosemide (Lasix) 40 mg IVPUSH DAILY [facility] Last Admin: 02/19/19 09:12 Dose: 40 mg Gabapentin (Neurontin) 300 mg PO BID [facility] Last Admin: 02/19/19 09:13 Dose: 300 mg Insulin Glargine (Lantus Solostar) 30 units SUBCUT DAILY [facility] Last Admin: 02/19/19 08:28 Dose: 30 units Insulin Human Lispro (Humalog) 0 unit SUBCUT TIDMEALS [facility]; Protocol Last Admin: 02/19/19 08:29 Dose: 2 units Isosorbide Mononitrate (Imdur) 60 mg PO DAILY [facility] Last Admin: 02/19/19 09:12 Dose: 60 mg Levothyroxine Sodium (Synthroid) 100 mcg PO 0600 [facility] Last Admin: 02/19/19 05:54 Dose: 100 mcg Magnesium Chloride (Mag-64) 64 mg PO DAILY [facility] Last Admin: 02/19/19 09:12 Dose: 64 mg Metolazone (Zaroxolyn) 2.5 mg PO ASDIRECTED PRN PRN Reason: Weight gain Mirtazapine (Remeron) 7.5 mg PO BEDTIME [facility] Last Admin: 02/18/19 21:11 Dose: 7.5 mg Mometasone Furoate/Formoterol Fumar (Dulera 200-5 Mcg) 0 puff IH BID [facility] Last Admin: 02/19/19 09:11 Dose: 2 inhalation Nitroglycerin (Nitrostat) 0.4 mg SL Q5M PRN PRN Reason: Chest Pain Pantoprazole Sodium (Protonix) 40 mg PO BID [facility] Last Admin: 02/19/19 09:13 Dose: 40 mg Potassium Chloride (Klor-Con M20) 20 meq PO BEDTIME [facility] Last Admin: 02/18/19 21:10 Dose: 20 meq Sodium Chloride (Saline Flush) 10 ml FLUSH ASDIRECTED PRN PRN Reason: Keep Vein Open Last Admin: 02/18/19 21:29 Dose: 10 ml Warfarin Sodium (Coumadin Sliding Scale) 1 each PO DAILY [facility] Discontinued Medications Albuterol/Ipratropium (Duoneb 3.0-0.5 Mg/3 Ml) 3 ml NEB ONETIME ONE Stop: 02/17/19 09:58 Last Admin: 02/17/19 10:00 Dose: 3 ml Aspirin (Halfprin) 81 mg PO DAILY [facility] Last Admin: 02/18/19 09:16 Dose: 81 mg Furosemide (Lasix) 40 mg IVPUSH NOW ONE Stop: 02/17/19 10:40 Last Admin: 02/17/19 10:44 Dose: 40 mg Furosemide (Lasix) 40 mg IVPUSH BID [facility] Last Admin: 02/18/19 21:29 Dose: 40 mg Metolazone (Zaroxolyn) 2.5 mg PO ONETIME ONE Stop: 02/17/19 10:40 Last Admin: 02/17/19 10:44 Dose: 2.5 mg Phytonadione (Aquamephyton) 5 mg PO ONETIME ONE Stop: 02/18/19 15:43 Last Admin: 02/18/19 16:05 Dose: 5 mg Potassium Chloride (Klor-Con 10) 10 meq PO ONETIME ONE Stop: 02/19/19 09:01 Last Admin: 02/19/19 09:12 Dose: 10 meq - Exam Quality Assessment: No: Supplemental Oxygen General: Alert, Oriented, Cooperative, No Acute Distress Lungs: Clear to Auscultation (RLL), Normal Respiratory Effort, Decreased Breath Sounds (base), Crackles (LLL improved slightly), Rhonchi (LLL), Wheezing (LLL) Cardiovascular: Regular Rate, Irregular Rhythm, Murmurs GI/Abdominal Exam: Normal Bowel Sounds, Soft, Non-Tender, No Distention Extremities: No Pedal Edema Peripheral Pulses: 2+: Radial (L), Radial (R) Skin: Warm, Dry, Intact Sepsis Event Note - Evaluation Sepsis Screening Result: No Definite Risk - Focused Exam Vital Signs: Vital Signs Temp Pulse Resp BP Pulse Ox Pulse Ox 02/19/19 08:00 97.7 F 96 20 120/60 92 L 02/19/19 04:05 92 L 02/19/19 04:00 98.4 F 93 18 110/53 L 92 L 02/19/19 01:33 93 L 02/19/19 01:32 98.4 F 91 18 116/45 L 93 L Date Exam was Performed: 02/19/19 Time Exam was Performed: 11:15 - Problem List & Annotations (1) CHF exacerbation SNOMED Code(s): 412562580, 90406502046835 Code(s): I50.9 - HEART FAILURE, UNSPECIFIED Status: Acute Current Visit: Yes Qualifiers: Heart failure type: unspecified Qualified Code(s): I50.9 - Heart failure, unspecified Annotation/Comment:: ECHO 07/2018: EF 55% with preserved systolic dysfunction, decreased from 2018 echo. BNP 2500 at baseline, elevated on admit at 5805. (2) Supratherapeutic INR SNOMED Code(s): 329092363 Code(s): R79.1 - ABNORMAL COAGULATION PROFILE Status: Resolved Current Visit: Yes Annotation/Comment:: hold for possible procedure tomorrow. (3) COPD exacerbation SNOMED Code(s): 983471647 Code(s): J44.1 - CHRONIC OBSTRUCTIVE PULMONARY DISEASE W (ACUTE) EXACERBATION Status: Acute Current Visit: Yes Annotation/Comment:: CT showed persistent consolidation in Left middle and left upper question pneumonia vs neoplasm. Patient reports that oncology felt it was scarring post radiation & PET scan was negative over those areas. Was told by oncology not to treat for pna unless high WBC, fever. procalcitonin will be back on Saturday. Will hold off antibiotics. (4) Atrial fibrillation and flutter SNOMED Code(s): 399594616 Code(s): I48.91 - UNSPECIFIED ATRIAL FIBRILLATION; I48.92 - UNSPECIFIED ATRIAL FLUTTER Status: Acute Current Visit: No Annotation/Comment:: (5) CHF (congestive heart failure) SNOMED Code(s): 04437566 Code(s): I50.9 - HEART FAILURE, UNSPECIFIED Status: Acute Current Visit: No Qualifiers: Heart failure type: unspecified Heart failure chronicity: acute on chronic Qualified Code(s): I50.9 - Heart failure, unspecified Annotation/Comment:: Last echo 07/2018 at [facility]. EF 55%, down from 2018 echo. (6) Chronic renal insufficiency, stage IV (severe) SNOMED Code(s): 869681562 Code(s): N18.4 - CHRONIC KIDNEY DISEASE, STAGE 4 (SEVERE) Status: Chronic Current Visit: No (7) Coronary arteriosclerosis in [place] artery SNOMED Code(s): 4676690567262 Code(s): I25.10 - ATHSCL HEART DISEASE OF [place] CORONARY ARTERY W/O ANG PCTRS Status: Chronic Current Visit: No (8) Diabetes mellitus SNOMED Code(s): 28895932 Code(s): E11.9 - TYPE 2 DIABETES MELLITUS WITHOUT COMPLICATIONS Status: Chronic Current Visit: No (9) Elevated troponin I level SNOMED Code(s): 368448913 Code(s): R74.8 - ABNORMAL LEVELS OF OTHER SERUM ENZYMES Status: Chronic Current Visit: No (10) History of coronary artery stent placement SNOMED Code(s): 286616557, 693690405 Code(s): Z95.5 - PRESENCE OF CORONARY ANGIOPLASTY IMPLANT AND GRAFT Status : Chronic Current Visit: No (11) History of lung cancer SNOMED Code(s): 679872533, 410017741 Code(s): Z85.118 - PERSONAL HISTORY OF MALIGNANT NEOPLASM OF [place] AND LUNG Status: Chronic Current Visit: No (12) Palliative care status SNOMED Code(s): 073567013 Code(s): Z51.5 - ENCOUNTER FOR PALLIATIVE CARE Status: Chronic Current Visit: No (13) Anticoagulated SNOMED Code(s): 751524832, 584451948 Code(s): Z79.01 - JAIL (CURRENT) USE OF ANTICOAGULANTS Status: Chronic Current Visit: No (14) ADA on CPAP SNOMED Code(s): 33081870 Code(s): G47.33 - OBSTRUCTIVE SLEEP APNEA (ADULT) (PEDIATRIC); Z99.89 - DEPENDENCE ON OTHER ENABLING MACHINES AND DEVICES Status: Acute Current Visit: Yes - Problem List Review Problem List Initiated/Reviewed/Updated: Yes - My Orders Last 24 Hours: My Active Orders 02/18/19 13:39 Consult to Physician [CONS] Routine 02/18/19 13:40 Notify Provider Consults [RC] ASDIRECTED 02/18/19 15:40 Patient Status [ADT] Routine 02/19/19 09:00 Furosemide [Lasix] 40 mg IVPUSH DAILY 02/20/19 05:11 INR,PT,PROTHROMBIN TIME [COAG] AM - Plan Plan:: 1. Consulted Dr Jade, if he is still short of breath even with diuresis on Saturday and his INR is below/around 2 he would do a therapeutic thoracentesis then. 2. Change Lasix 40 mg IV daily, I&Os, still having good output so will see this afternoon and maybe pull Crum and continue I&Os with hat. 3. Keep oxygen 88-94%, DuoNebs q4h prn, Advair bid. 4. INR 2.25, repeat tomorrow. Hold Coumadin.
[2019-02-19] MEDS: Potassium Chloride 20 MEQ Tab.ER PO SCH (20:26)
[2019-02-19] MEDS: Mirtazapine 15 MG Tab PO SCH (20:27)
[2019-02-19] MEDS: Acetaminophen 325 MG Tab PO PRN (20:48)
[2019-02-20] MEDS: Levothyroxine 100 MCG Tab PO SCH (06:02)
[2019-02-20] MEDS: Insulin Lispro 100 Unit/ML 3 ML KwikPen SUBCUT SCH ×3 (08:23→18:17)
[2019-02-20] MEDS: Acetaminophen 325 MG Tab PO PRN (09:19)
[2019-02-20] MEDS: Gabapentin 300 MG Cap PO SCH (09:19)
[2019-02-20] MEDS: Formoterol/Mometasone 200-5 MCG 8.8 GM Inhaler IH SCH (09:19)
[2019-02-20] MEDS: Furosemide 40 MG/4 ML VIAL IVPUSH SCH (09:20)
[2019-02-20] MEDS: atorvaSTATin 40 MG Tab PO SCH (09:20)
[2019-02-20] MEDS: Ferrous Sulfate 325 MG Tab PO SCH (09:20)
[2019-02-20] MEDS: Cyanocobalamin (Vitamin B12) 1,000 MCG Tab PO SCH (09:20)
[2019-02-20] MEDS: Magnesium Chloride 64 MG Tab.ER PO SCH (09:20)
[2019-02-20] MEDS: Isosorbide Mononitrate 60 MG Tab.ER PO SCH (09:20)
[2019-02-20] MEDS: Pantoprazole 40 MG Tab.CR PO SCH (09:20)
[2019-02-20] MEDS: Insulin Glargine,Human Rec. Analog 100 Units/ML 3 ML Pen SUBCUT SCH (09:21)
--- NOTE | 2019-02-20 11:01 | PCM.PN ---
- General Info Date of Service: 02/20/19 Admission Dx/Problem (Free Text): Improving pneumonia with small pleural effusion. Subjective Update: Patient improving and now states he is back to baseline respiratory status. He denies any of the pain or chest pressure that he had in the past when he had clinically significant pleural effusions which required thoracentesis. - Review of Systems Pulmonary: Reports: Other (no chest pain, states breathing is now back to baseline) - Patient Data Vitals - Most Recent: Last Vital Signs Temp 97.4 F 02/19/19 23:37 Pulse 102 H 02/19/19 23:37 Resp 18 02/19/19 23:37 BP 97/54 L 02/19/19 23:37 Pulse Ox 94 L 02/19/19 23:37 Weight - Most Recent: 198 lb 8 oz I&O - Last 24 Hours: Intake & Output 02/19/19 02/20/19 02/20/19 22:59 06:59 14:59 Intake Total 350 250 Output Total 1500 300 Balance -1150 -50 Lab Results Last 24 Hours: Laboratory Results - last 24 hr 02/19/19 02/19/19 02/20/19 Range/Units 12:11 17:02 06:05 PT (8.7-11.1) INR (0.89-1.13) POC Glucose 202 H 182 H 225 H (80-116) mg/dL 02/20/19 Range/Units 06:15 PT 13.7 H (8.7-11.1) INR 1.41 H (0.89-1.13) POC Glucose (80-116) mg/dL Med Orders - Current: Current Medications Acetaminophen (Tylenol) 650 mg PO Q4H PRN PRN Reason: Pain (mild 1-3) Last Admin: 02/20/19 09:19 Dose: 650 mg Albuterol (Ventolin Hfa) 0 gm INH Q6H PRN PRN Reason: Dyspnea Albuterol/Ipratropium (Duoneb 3.0-0.5 Mg/3 Ml) 3 ml NEB Q4H PRN PRN Reason: Dyspnea Last Admin: 02/19/19 20:52 Dose: 3 ml Colchicine (Colcrys) 0.6 mg PO ASDIRECTED PRN PRN Reason: ACUTE GOUT Cyanocobalamin (Vitamin B12) 1,000 mcg PO DAILY [facility] Last Admin: 02/20/19 09:20 Dose: 1,000 mcg Ferrous Sulfate (Ferrous Sulfate) 325 mg PO DAILY [facility] Last Admin: 02/20/19 09:20 Dose: 325 mg Gabapentin (Neurontin) 300 mg PO BID [facility] Last Admin: 02/20/19 09:19 Dose: 300 mg Insulin Glargine (Lantus Solostar) 35 units SUBCUT DAILY [facility] Insulin Human Lispro (Humalog) 0 unit SUBCUT TIDMEALS [facility]; Protocol Last Admin: 02/20/19 08:23 Dose: 4 units Isosorbide Mononitrate (Imdur) 60 mg PO DAILY [facility] Last Admin: 02/20/19 09:20 Dose: 60 mg Levothyroxine Sodium (Synthroid) 100 mcg PO 0600 [facility] Last Admin: 02/20/19 06:02 Dose: 100 mcg Metolazone (Zaroxolyn) 2.5 mg PO ASDIRECTED PRN PRN Reason: Weight gain Mirtazapine (Remeron) 7.5 mg PO BEDTIME [facility] Last Admin: 02/19/19 20:27 Dose: 7.5 mg Mometasone Furoate/Formoterol Fumar (Dulera 200-5 Mcg) 0 puff IH BID [facility] Last Admin: 02/20/19 09:19 Dose: 2 inhalation Nitroglycerin (Nitrostat) 0.4 mg SL Q5M PRN PRN Reason: Chest Pain Pantoprazole Sodium (Protonix) 40 mg PO BID [facility] Last Admin: 02/20/19 09:20 Dose: 40 mg Potassium Chloride (Klor-Con M20) 20 meq PO BEDTIME [facility] Last Admin: 02/19/19 20:26 Dose: 20 meq Warfarin Sodium (Coumadin Sliding Scale) 1 each PO DAILY [facility] Discontinued Medications Albuterol/Ipratropium (Duoneb 3.0-0.5 Mg/3 Ml) 3 ml NEB ONETIME ONE Stop: 02/17/19 09:58 Last Admin: 02/17/19 10:00 Dose: 3 ml Aspirin (Halfprin) 81 mg PO DAILY [facility] Last Admin: 02/18/19 09:16 Dose: 81 mg Atorvastatin Calcium (Lipitor) 40 mg PO DAILY [facility] Last Admin: 02/20/19 09:20 Dose: 40 mg Furosemide (Lasix) 40 mg IVPUSH NOW ONE Stop: 02/17/19 10:40 Last Admin: 02/17/19 10:44 Dose: 40 mg Furosemide (Lasix) 40 mg IVPUSH BID [facility] Last Admin: 02/18/19 21:29 Dose: 40 mg Furosemide (Lasix) 40 mg IVPUSH DAILY [facility] Last Admin: 02/20/19 09:20 Dose: 40 mg Insulin Glargine (Lantus Solostar) 30 units SUBCUT DAILY [facility] Last Admin: 02/20/19 09:21 Dose: 30 units Magnesium Chloride (Mag-64) 64 mg PO DAILY [facility] Last Admin: 02/20/19 09:20 Dose: 64 mg Metolazone (Zaroxolyn) 2.5 mg PO ONETIME ONE Stop: 02/17/19 10:40 Last Admin: 02/17/19 10:44 Dose: 2.5 mg Phytonadione (Aquamephyton) 5 mg PO ONETIME ONE Stop: 02/18/19 15:43 Last Admin: 02/18/19 16:05 Dose: 5 mg Potassium Chloride (Klor-Con 10) 10 meq PO ONETIME ONE Stop: 02/19/19 09:01 Last Admin: 02/19/19 09:12 Dose: 10 meq Sodium Chloride (Saline Flush) 10 ml FLUSH ASDIRECTED PRN PRN Reason: Keep Vein Open Last Admin: 02/18/19 21:29 Dose: 10 ml Sepsis Event Note - Evaluation Sepsis Screening Result: No Definite Risk - Focused Exam Vital Signs: Vital Signs Temp Pulse Resp BP Pulse Ox 02/19/19 23:37 97.4 F 102 H 18 97/54 L 94 L Date Exam was Performed: 02/20/19 Time Exam was Performed: 10:57 - Problem List Review Problem List Initiated/Reviewed/Updated: Yes - Assessment Assessment:: Improing pneumonia Small pleural effusion - Plan Plan:: With patient's current status I do not think that he would benefit from aspiration of small pleural effusion. He also declines this procedure at this time. I will follow PRN.
[2019-02-20] MEDS ORDERED: Warfarin 5 MG Tab PO SCH (16:00)
[2019-02-20 18:26] VITALS: BP 98/60; PULSE 95
[2019-02-21] MEDS ORDERED: Furosemide 40 MG Tab PO SCH (09:00)
[2019-02-21] MEDS ORDERED: Insulin Glargine,Human Rec. Analog 100 Units/ML 3 ML Pen SUBCUT SCH (09:00)
--- NOTE | 2019-02-23 08:29 | DISCH ---
DISCHARGE DATE: 02/20/2019 HISTORY: Georges is an 78-year-old man with a remote history of left-sided lung cancer post treatment, congestive heart failure, severe gouty arthropathy, COPD, type 2 diabetes on insulin, coronary artery disease, hypothyroidism, hypertension, atrial fibrillation on warfarin, and GERD. The patient was admitted to the hospital because of shortness of breath. This had been slowly progressive over a couple of weeks. On admission, he was found to be in congestive heart failure with a left pleural effusion. He was diuresed of 12 pounds. He had been started on antibiotics. These were continued. He was also found to be supratherapeutic on his warfarin with an INR around 6. The warfarin was held until it came back to 1.4. His other medications were resumed, and as mentioned, he was diuresed of 12 pounds. He felt markedly better and by 02/20/2019, was ready for discharge. Discussion was held with him regarding possible consult for palliative care measures. He has consented to this and a consult placed. The patient is discharged in improved condition to continue medications as follows: 1. Warfarin 5 mg 6 days a week, 7.5 mg Mondays. 2. Torsemide 20 mg daily. 3. Magnesium chloride 64 mg daily. 4. Cefdinir 300 mg b.i.d. until current supply is gone. 5. Atorvastatin 40 mg daily. 6. Aspirin 81 mg daily. 7. Potassium 20 mEq at bedtime. 8. Pantoprazole 40 mg b.i.d. 9. Nitroglycerin p.r.n. 10.Remeron 15 mg at bedtime. 11.Metolazone 2.5 mg daily p.r.n. increased edema. 12.Levothyroxine 100 mcg daily. 13.Isosorbide 60 mg ER once daily. 14.Levemir 34 units daily. 15.Gabapentin 300 mg b.i.d. 16.Advair 250/50 one puff b.i.d. 17.Ferrous sulfate 325 mg daily. 18.Vitamin B12 1000 mcg daily. 19.Colchicine 0.6 mg as directed. 20.Albuterol inhaler 2 puffs every 6 hours p.r.n. 21.DuoNeb every 4 hours. 22.Tylenol p.r.n. The patient was also found to be significantly anemic with a hemoglobin of 7.8 g. Of note is the patient's INR had returned to normal. He has a history of recurrent anemia and gets intermittent transfusions if below 7. He is asked to see Dr. Llanes within 2 weeks in the office for followup and labs and report back should there be problems prior to that time. /[id number] GOPAL/CHRISTOPHER
== END 2019-02-20 19:40 | disposition home or self-care (01) | DRG 194 ==
LOC: FB.ED 09:42 → FB.MS 11:26 → OBSVTOIN 02-18 15:40
PROVIDERS: ADMIT Family Medicine; ATTEND Family Medicine
DX: I13.0 Hypertensive heart and chronic kidney disease with heart failure and stage 1 through stage 4 chronic kidney disease, or unspecified chronic kidney disease (principal); I50.33 Acute on chronic diastolic (congestive) heart failure; J18.9 Pneumonia, unspecified organism; N18.4 Chronic kidney disease, stage 4 (severe); D64.9 Anemia, unspecified; Z51.5 Encounter for palliative care; H91.90 Unspecified hearing loss, unspecified ear; I48.91 Unspecified atrial fibrillation; H54.62 Unqualified visual loss, left eye, normal vision right eye; J44.1 Chronic obstructive pulmonary disease with (acute) exacerbation; I25.10 Atherosclerotic heart disease of native coronary artery without angina pectoris; K59.00 Constipation, unspecified; M19.90 Unspecified osteoarthritis, unspecified site; R33.9 Retention of urine, unspecified; F41.9 Anxiety disorder, unspecified; E11.22 Type 2 diabetes mellitus with diabetic chronic kidney disease; E03.9 Hypothyroidism, unspecified; E66.9 Obesity, unspecified; M10.9 Gout, unspecified; R79.1 Abnormal coagulation profile; G47.33 Obstructive sleep apnea (adult) (pediatric); Z99.89 Dependence on other enabling machines and devices; Z85.118 Personal history of other malignant neoplasm of bronchus and lung; Z88.8 Allergy status to other drugs, medicaments and biological substances; Z79.890 Hormone replacement therapy; Z79.899 Other long term (current) drug therapy; Z79.82 Long term (current) use of aspirin; Z79.01 Long term (current) use of anticoagulants; Z79.4 Long term (current) use of insulin; Z95.5 Presence of coronary angioplasty implant and graft; I25.2 Old myocardial infarction; Z87.01 Personal history of pneumonia (recurrent); Z98.49 Cataract extraction status, unspecified eye; Z99.81 Dependence on supplemental oxygen; Z68.30 Body mass index [BMI] 30.0-30.9, adult
CPT/HCPCS: 36415; 51702; 71045; 71250; 80048; 80053; 81001; 82962; 83605; 83880; 84145; 84484; 85025; 85610; 87804; 87804-59; 94640; 94760; 96374; 96376; 99285-25; A9270-GY; G0378; J1815; J1815-GY; J1940; J7620-GY